=== PATIENT | female | born 1965 | race African-American/Black ===

== ENCOUNTER 2017-08-29 19:37 | Inpatient (IN) | payer OTHER ==
--- NOTE | 2017-08-29 20:06 | PDOC ---
History of Present Illness - General Chief Complaint: Pain, Acute Stated Complaint: STOMACH PAIN Time Seen by Provider: 08/29/17 19:58 - History of Present Illness Initial Comments: 08/29/17 20:27 The patient is a 52 year old female with a history of Crohn's disease, SBO, Pancreatitis who presents for evaluation of abdominal pain. The patient reports sudden onset of poorly described sharp mid abdominal pain earlier this afternoon prompting her presentation to the ED for further evaluation. She endorse some nausea, but denies any vomiting. She states that her abdominal pain feels similar to her primary small bowel obstructions. She otherwise denies fevers, chills, SOB, chest pain, or changes with urination or bowel movements. Past History - Past Medical History Allergies/Adverse Reactions: Allergies Allergy/AdvReac Type Severity Reaction Status Date / Time No Known Drug Allergies Allergy Verified 08/29/17 19:57 Home Medications: Ambulatory Orders Mesalamine [Pentasa] 1,000 mg PO QID 09/29/11 Adalimumab [Humira] 0 mg SQ ASDIR 09/03/14 Acetaminophen [Tylenol .Regular Strength -] 650 mg PO Q4H PRN #0 tablet Anemia: No Asthma: No Cancer: No Cardiac Disorders: No CVA: No COPD: No CHF: No Dementia: No Diabetes: No GI Disorders: Yes (crohn's disease) Disorders: No HTN: No Hypercholesterolemia: No Liver Disease: No Seizures: No Thyroid Disease: No - Surgical History Abdominal Surgery: Yes (ILEOSTOMY 05/2011, with reversal) Appendectomy: No Cardiac Surgery: No Cholecystectomy: No Lung Surgery: No Neurologic Surgery: No Orthopedic Surgery: No - Immunization History Immunization Up to Date: Yes - Suicide/Smoking/Psychosocial Hx Smoking Status: No Smoking History: Never smoked Have you smoked in the past 12 months: No Number of Cigarettes Smoked Daily: 0 Information on smoking cessation initiated: No Hx Alcohol Use: No Drug/Substance Use Hx: No Substance Use Type: None Hx Substance Use Treatment: No Review of Systems - Review of Systems Comments:: 08/29/17 20:29 Constitutional: No fevers, chills, fatigue, malaise HEENT: No Rhinorrhea, nasal congestion, visual changes Cardiovascular: No chest pain, syncope, palpitations, lightheadedness Respiratory: No Cough, SOB, Hemoptysis, Gastrointestinal: Abdominal pain, Nausea, No Vomiting, Constipation, Diarrhea, Melena Genitourinary: No Dysuria, Frequency, Urgency, Hesitancy, Hematuria, Flank pain Musculoskeletal: No Myalgia, arthralgia Skin: No rashes, itching, bruising, pallor Neurologic: No Headache, Dizziness, Numbness, Weakness, or Tingling Psychiatric: No Hallucinations. No SI or HI *Physical Exam - Vital Signs Last Vital Signs Temp Pulse Resp BP Pulse Ox 99.1 F 66 22 134/75 99 08/29/17 19:57 08/29/17 19:57 08/29/17 19:57 08/29/17 19:57 08/29/17 19:57 - Physical Exam Comments: 08/29/17 20:30 General Appearance: Nourished. In Moderate Apparent Distress HEENT: EOMI, JAYLENE. No Pharyngeal Erythema, Tonsillar Exudate, Tonsillar Erythema Neck: No Cervical Lymphadenopathy Respiratory/Chest: Lungs Clear, Normal Breath Sounds. No Crackles, Rales, Rhonchi, Wheezing Cardiovascular: Regular Rhythm, Regular Rate. No Murmur, Gallops, Rubs Gastrointestinal/Abdominal: Normal Bowel Sounds, Soft. Diffuse tenderness to palpation worse around the umbilicus. No Guarding, Rebound, Musculoskeletal: No CVA Tenderness Extremity: Normal Capillary Refill Integumentary: Normal Color, Dry, Warm Neurologic: Fully Oriented, Alert, Normal Mood/Affect, Normal Response, ED Treatment Course - LABORATORY CBC & Chemistry Diagram: 08/29/17 21:17 08/29/17 22:50 Medical Decision Making - Medical Decision Making 08/29/17 20:30 The patient is a 52 year old female with a history of Crohn's disease, SBO, Pancreatitis who presents for evaluation of abdominal pain. Differential includes but is not limited to: SBO, Gastritis, Pancreatitis, Infectious, Metabolic derangement. Given the patient's history and physical exam, we will obtain a cbc, cmp, lacate, lipase, troponin, ekg and CT abdomen pelvis to evaluate further for possible etiologies. We will treat in the meantime with iv fluids, zofran, morphine. We will continue to monitor and reassess while here in the ED. 08/30/17 06:20 CBC, cmp, lipase, lactate, troponin are unremarkable. CT abdomen pelvis demonstrates a SBO as preliminarily read by our information security director radiologist. We will place an NG tube done and have placed a consult for surgery. We discussed the case with the hospitalist team who accepted the patient for admission. *DC/Admit/Observation/Transfer Diagnosis at time of Disposition: Small bowel obstruction - Discharge Dispostion Condition at time of disposition: Stable Decision to Admit order: Yes - Referrals - Patient Instructions - Post Discharge Activity
[2017-08-29] MEDS ORDERED: ONDANSETRON 4 MG/2 ML VIAL IVPUSH ONE (20:14)
[2017-08-29] MEDS ORDERED: SODIUM CHLORIDE 1,000 ML IV STA (20:14)
[2017-08-29] MEDS ORDERED: morphine CARPU-JECT 4 MG/1 ML DISP.SYRIN IVPUSH ONE (20:20)
--- NOTE | 2017-08-29 20:24 | PDOC ---
Attending Attestation - HPI HPI: 08/29/17 21:59 Pt is a 52 yo F with a PMHx of Crohn's disease, SBO, Pancreatitis who presents to the ED with abdominal pain and nausea today. Patient reports burning mid abdominal pain, 7/10 in severity with persistent nausea. Patient reports pain is similar in nature to previous SBO and presents to the ED for further evaluation. Patient refusing abdominal pain secondary to pain. - Physicial Exam PE: 08/29/17 21:59 GENERAL: The patient is in no acute distress. HEAD: Normal with no signs of trauma. EYES: PERRLA, EOMI, sclera anicteric, conjunctiva clear. ENT: Ears normal, nares patent, oropharynx clear without exudates. Moist mucous membranes. NECK: Normal range of motion, supple without lymphadenopathy, JVD, or masses. LUNGS: Breath sounds equal, clear to auscultation bilaterally. No wheezes, and no crackles. HEART:Regular rate and rhythm, normal S1 and S2 without murmur, rub or gallop. ABDOMEN: +severe abdominal tenderness. Normoactive bowel sounds. No guarding, no rebound. EXTREMITIES: Normal range of motion, no edema. No clubbing or cyanosis. No erythema, or tenderness. NEUROLOGICAL: Cranial nerves II through XII grossly intact. Normal speech. No focal neurological deficits. MUSCULOSKELETAL: Back nontender to palpation, no CVA tenderness SKIN: Warm, Dry, normal turgor, no rashes or lesions noted. <Francine Ramos - Last Filed: 08/29/17 21:59> - Resident Resident Name: Richard Travis - ED Attending Attestation I have performed the following: I have examined & evaluated the patient, The case was reviewed & discussed with the resident, I agree w/resident's findings & plan, Exceptions are as noted - Medical Decision Making 08/31/17 00:12 Laboratory Tests 08/29/17 08/29/17 08/29/17 21:17 22:50 22:50 WBC 7.1 D Hgb 13.9 D Hct 41.7 Plt Count 207 BUN 10 Creatinine 0.8 Creatine Kinase 336 H Creatine Kinase Index 0.9 CK-MB (CK-2) 3.21 Troponin I < 0.02 Serum , Qual Negative Urine Blood Urine Nitrite Ur Leukocyte Esterase 08/29/17 23:29 WBC Hgb Hct Plt Count BUN Creatinine Creatine Kinase Creatine Kinase Index CK-MB (CK-2) Troponin I Serum , Qual Urine Blood Negative Urine Nitrite Negative Ur Leukocyte Esterase Negative 08/31/17 00:14 CT demonstrates SBO Will admit NGT Consult Dr Casiano Clinical Impression: SBO, initial presentation <Matilda Kline - Last Filed: 08/31/17 00:14>
[2017-08-29] MEDS ORDERED: morphine SULFATE 4 MG/ML VIAL ONE (21:25)
[2017-08-29] MEDS ORDERED: ONDANSETRON 4 MG/2 ML VIAL ONE (21:25)
[2017-08-29 21:32] LABS: BASO % 0.5 % (0-2.0); EOS % 0.9 % (0-4.5); HEMATOCRIT 41.7 % (32.4-45.2); HEMOGLOBIN 13.9 GM/dL (10.7-15.3); LYMPH % 27.9 % (8-40); MCH 31.2 pg (25.7-33.7); MCHC 33.3 g/dl (32.0-36.0); MEAN CELL VOLUME 93.5 fl (80-96); MEAN PLT VOLUME 8.9 fl (7.5-11.1); MONO % 6.1 % (3.8-10.2); NEUT % 64.6 % (42.8-82.8); PLATELET COUNT 207 K/MM3 (134-434); RBC 4.46 M/mm3 (3.60-5.2); WHITE BLOOD COUNT 7.1 K/mm3 (4.0-10.0)
[2017-08-29 23:29] LABS: ALBUMIN 3.5 g/dl (3.4-5.0); ANION GAP 5 (8-16); BLOOD UREA NITROGEN 10 mg/dL (7-18); CALCIUM 8.8 mg/dL (8.5-10.1); CHLORIDE 104 mmol/L (98-107); CO2 29 mmol/L (21-32); CREATININE 0.8 mg/dL (0.55-1.02); GLUCOSE,RANDOM 99 mg/dL (74-106); LIPASE 148 U/L (73-393); POTASSIUM 4.8 mmol/L (3.5-5.1); SGOT/AST 25 U/L (15-37); SGPT/ALT 35 U/L (12-78); SODIUM 138 mmol/L (136-145)
[2017-08-29 23:33] LABS: ALK PHOS 53 U/L (45-117); BILIRUBIN,TOTAL 0.6 mg/dL (0.2-1.0); TOT PROT 7.7 g/dl (6.4-8.2)
[2017-08-29 23:47] LABS: URINE APPEARANCE CLEAR; URINE BILIRUBIN NEGATIVE (<2.0 mg/dL); URINE COLOR LTYELLOW; URINE GLUCOSE (UA) NEGATIVE (NEGATIVE); URINE KETONE NEGATIVE (NEGATIVE); URINE LEUK ESTERASE NEGATIVE (NEGATIVE); URINE NITRITE NEGATIVE (NEGATIVE); URINE PROTEIN NEGATIVE (NEGATIVE); URINE UROBILINOGEN NEGATIVE mg/dL (0.2-1.0)
[2017-08-30] MEDS ORDERED: SODIUM CHLORIDE 1,000 ML IV STA (05:11)
--- NOTE | 2017-08-30 06:08 | HP ---
CHIEF COMPLAINT: pain abdomen PCP: none HISTORY OF PRESENT ILLNESS: 52 yo F with a PMHx of Crohn's disease, SBO, Pancreatitis who presents to the ED with abdominal pain and nausea today. Patient reports sharp pain, present in center of abdomen , 7/10 in severity with persistent nausea, non radiating. Patient reports pain is similar in nature to previous SBO and presents to the ED for further evaluation. Denies abdominal dstension, reports not passing flatus since yesterday, had last bowel moement yesterday, denies fever and chills, reports making a good amount of urine and its clear. ER course was notable for: (1)cbc, cmp, ct abdomen (2)IV fuid (3)got fentanyl and morphine in er Recent Travel: no PAST MEDICAL HISTORY: crohns Follow dr lindo. PAST SURGICAL HISTORY: laparotomy 2011 for bowel perforation, 2013 for obstruction Social History: Smoking:no Alcohol:no Drugs: no Family History: not relevant Allergies No Known Drug Allergies Allergy (Verified 08/29/17 19:57) HOME MEDICATIONS: Home Medications Medication Instructions Recorded Mesalamine [Pentasa] 1,000 mg PO QID 09/29/11 Adalimumab [Humira] 0 mg SQ ASDIR 09/03/14 Acetaminophen [Tylenol .Regular 650 mg PO Q4H PRN #0 tablet 08/13/15 Strength -] REVIEW OF SYSTEMS CONSTITUTIONAL: Absent: fever, chills, diaphoresis, generalized weakness, malaise, loss of appetite, weight change HEENT: Absent: rhinorrhea, nasal congestion, throat pain, throat swelling, difficulty swallowing, mouth swelling, ear pain, eye pain, visual changes CARDIOVASCULAR: Absent: chest pain, syncope, palpitations, irregular heart rate, lightheadedness , peripheral edema RESPIRATORY: Absent: cough, shortness of breath, dyspnea with exertion, orthopnea, wheezing, stridor, hemoptysis GASTROINTESTINAL: as above GENITOURINARY: Absent: dysuria, frequency, urgency, hesitancy, hematuria, flank pain, genital pain MUSCULOSKELETAL: Absent: myalgia, arthralgia, joint swelling, back pain, neck pain SKIN: Absent: rash, itching, pallor HEMATOLOGIC/IMMUNOLOGIC: Absent: easy bleeding, easy bruising, lymphadenopathy, frequent infections ENDOCRINE: Absent: unexplained weight gain, unexplained weight loss, heat intolerance, cold intolerance NEUROLOGIC: Absent: headache, focal weakness or paresthesias, dizziness, unsteady gait, seizure, mental status changes, bladder or bowel incontinence PSYCHIATRIC: Absent: anxiety, depression, suicidal or homicidal ideation, hallucinations. PHYSICAL EXAMINATION Vital Signs - 24 hr 08/29/17 19:57 Temperature 99.1 F Pulse Rate 66 Respiratory 22 Rate Blood Pressure 134/75 O2 Sat by Pulse 99 Oximetry (%) GENERAL: Awake, alert, and fully oriented, in no acute distress. HEAD: Normal with no signs of trauma. EARS, NOSE, THROAT: Moist mucous membranes. NECK: Normal range of motion, supple without lymphadenopathy, JVD, or masses. LUNGS: Breath sounds equal, clear to auscultation bilaterally. No wheezes, and no crackles. No accessory muscle use. HEART: Regular rate and rhythm, normal S1 and S2 without murmur, rub or gallop. ABDOMEN: Soft, mild tender, not distended, hypoactive bowel sounds, no guarding, midline scar and ileostomy scar present MUSCULOSKELETAL: Normal range of motion at all joints. No bony deformities or tenderness. UPPER EXTREMITIES: 2+ pulses, warm, well-perfused. No cyanosis. No clubbing. No peripheral edema. LOWER EXTREMITIES: 2+ pulses, warm, well-perfused. No calf tenderness. No peripheral edema. SKIN: Warm, dry, 08/29/17 08/29/17 08/29/17 21:17 22:50 22:50 WBC 7.1 D RBC 4.46 Hgb 13.9 D Hct 41.7 MCV 93.5 MCH 31.2 MCHC 33.3 RDW 14.0 Plt Count 207 MPV 8.9 Absolute Neuts (auto) 4.6 Neutrophils % 64.6 Lymphocytes % 27.9 Monocytes % 6.1 Eosinophils % 0.9 Basophils % 0.5 Nucleated RBC % 0 Sodium 138 Potassium 4.8 Chloride 104 Carbon Dioxide 29 Anion Gap 5 L BUN 10 Creatinine 0.8 Creat Clearance w eGFR > 60 Random Glucose 99 Lactic Acid 1.6 Calcium 8.8 Total Bilirubin 0.6 AST 25 ALT 35 Alkaline Phosphatase 53 Creatine Kinase 336 H Creatine Kinase Index 0.9 CK-MB (CK-2) 3.21 Troponin I < 0.02 Total Protein 7.7 Albumin 3.5 Lipase 148 Serum , Qual Urine Color Urine Appearance Urine pH Ur Specific [place] Urine Protein Urine Glucose (UA) Urine Ketones Urine Blood Urine Nitrite Urine Bilirubin Urine Urobilinogen Ur Leukocyte Esterase 08/29/17 08/29/17 22:50 23:29 WBC RBC Hgb Hct MCV MCH MCHC RDW Plt Count MPV Absolute Neuts (auto) Neutrophils % Lymphocytes % Monocytes % Eosinophils % Basophils % Nucleated RBC % Sodium Potassium Chloride Carbon Dioxide Anion Gap BUN Creatinine Creat Clearance w eGFR Random Glucose Lactic Acid Calcium Total Bilirubin AST ALT Alkaline Phosphatase Creatine Kinase Creatine Kinase Index CK-MB (CK-2) Troponin I Total Protein Albumin Lipase Serum , Qual Negative Urine Color Ltyellow Urine Appearance Clear Urine pH 8.0 D Ur Specific [place] 1.017 Urine Protein Negative Urine Glucose (UA) Negative Urine Ketones Negative Urine Blood Negative Urine Nitrite Negative Urine Bilirubin Negative Urine Urobilinogen Negative Ur Leukocyte Esterase Negative ASSESSMENT/PLAN: 52 yo F with a PMHx of Crohn's disease, SBO, Pancreatitis who presents to the ED with abdominal pain and nausea today found to have sbo SBO IV fluid RL 100ml/hr NPO NG tube, patient refused, but she is not vomiting. Bowel rest. monitor vitals monitor intake/ output. PT inr , type and screen keep sr K over 4. surgery consult. monitor electrolytes avoid opeoid fr pain control try IV tylenol and toradol. Crohns ds continue home meds but need to confirm them. follows dr veronica lindo fluid: RL 100ml/hr electrolytes: repeat in am nutrition : npo dvt pro: scd dispo med surg Visit type - Emergency Visit Emergency Visit: Yes Care time: The patient presented to the Emergency Department on the above date and was hospitalized for further evaluation of their emergent condition. - New Patient This patient is new to me today: Yes Date on this admission: 08/30/17 - Critical Care Critical Care patient: No
--- NOTE | 2017-08-30 06:13 | PN ---
Teaching Attending Note Name of Resident: Roderick Pritchett ATTENDING PHYSICIAN STATEMENT I saw and evaluated the patient. I reviewed the resident's note and discussed the case with the resident. I agree with the resident's findings and plan as documented. SUBJECTIVE: 52 yo F with a PMHx of Crohn's disease, SBO, multiple abdominal surgeries including placement of ileostomy and subsequent c/o nausea and sharp abdominal pain, located in the center of the abdomen. No history of recent trauma. Last BM was on 08/29. Patient not passing flatulence since yesterday. Denied any vomiting. CT of abdomen/pelvis c/w SBO. Pt was not able to tolerate NG tube in the ER. OBJECTIVE: Last Vital Signs Temp Pulse Resp BP Pulse Ox 99.1 F 66 22 134/75 99 08/29/17 19:57 08/29/17 19:57 08/29/17 19:57 08/29/17 19:57 08/29/17 19:57 General-nad, aaox3 heent- at, normocephalic, no oral uclers neck -supple cv s1+s2+rrr chest -cta b/l abdomen - multiple keloids post op present, decreased BS, guarding, tenderness present skin -no rashes, only keloids Abnormal Lab Results 08/29/17 22:50 Anion Gap 5 L Creatine Kinase [address] of abdomen/pelvis reviewed, + for SBO, /p right hemicolectomy ASSESSMENT AND PLAN: #52yo woman with acute small bowel obstruction -admit to med/surg -surgery consult -tylenol IV prn for pain management -NPO -attempt NG tube for bowel decompression -correct electrolyte abnormalities -IV fluid hydration -type and screen -PT, PTT #DVT ppx - heparin sc
[2017-08-30] MEDS ORDERED: LACTATED RINGERS SOLUTION 1,000 ML/1,000 ML INFUS.BAG IV SCH (06:15)
[2017-08-30 06:57] LABS: BASO % 0.8 % (0-2.0); EOS % 0.9 % (0-4.5); HEMATOCRIT 39.2 % (32.4-45.2); HEMOGLOBIN 13.2 GM/dL (10.7-15.3); LYMPH % 31.8 % (8-40); MCH 31.2 pg (25.7-33.7); MCHC 33.5 g/dl (32.0-36.0); MEAN CELL VOLUME 93.2 fl (80-96); MEAN PLT VOLUME 7.9 fl (7.5-11.1); MONO % 6.5 % (3.8-10.2); PLATELET COUNT 183 K/MM3 (134-434); RBC 4.21 M/mm3 (3.60-5.2); RDW 14.2 % (11.6-15.6); WHITE BLOOD COUNT 6.8 K/mm3 (4.0-10.0)
[2017-08-30 07:12] LABS: ALBUMIN 3.2 g/dl (3.4-5.0); ANION GAP 6 (8-16); BLOOD UREA NITROGEN 7 mg/dL (7-18); CALCIUM 8.2 mg/dL (8.5-10.1); CHLORIDE 106 mmol/L (98-107); CO2 27 mmol/L (21-32); MAGNESIUM 1.8 mg/dL (1.8-2.4); POTASSIUM 4.1 mmol/L (3.5-5.1); SODIUM 139 mmol/L (136-145)
[2017-08-30 07:15] LABS: ALK PHOS 51 U/L (45-117); BILIRUBIN,TOTAL 0.8 mg/dL (0.2-1.0); CREATININE 0.8 mg/dL (0.55-1.02); GLUCOSE,RANDOM 100 mg/dL (74-106); PHOSPHOROUS 3.9 mg/dL (2.5-4.9); SGOT/AST 21 U/L (15-37); SGPT/ALT 33 U/L (12-78)
[2017-08-30 07:23] LABS: INR 1.09 (0.82-1.09); PROTHROMBIN TIME (PATIENT) 12.3 SEC (9.7-13.0)
--- NOTE | 2017-08-30 08:56 | EKG ---
Test Reason : Blood Pressure : / mmHG Vent. Rate : 062 BPM Atrial Rate : 062 BPM P-R Int : 216 ms QRS Dur : 074 ms QT Int : 382 ms P-R-T Axes : 059 007 012 degrees QTc Int : 387 ms SINUS RHYTHM WITH 1ST DEGREE A-V BLOCK NONSPECIFIC T WAVE ABNORMALITY ABNORMAL ECG WHEN COMPARED WITH ECG OF 18-NOV-2015 00:54, QT HAS SHORTENED Confirmed by KIRILL DELATORRE, TC ([id number]) on 08/30/2017 8:55:57 AM Referred By: Confirmed By:CT ROY MD
--- NOTE | 2017-08-30 09:55 | HOSP ---
Subjective - Review of Symptoms Events since last encounter: Subjective: no fever or chills. Abd pain resolved. NO N/V . no flatus yet. Objective: Vital Signs: Last Vital Signs Temp Pulse Resp BP Pulse Ox 97.9 F 69 17 140/62 100 08/30/17 06:21 08/30/17 07:58 08/30/17 06:21 08/30/17 07:58 08/30/17 07:58 Laboratory Results - last 24 hr 08/29/17 08/29/17 08/29/17 21:17 22:50 22:50 WBC 7.1 D RBC 4.46 Hgb 13.9 D Hct 41.7 MCV 93.5 MCH 31.2 MCHC 33.3 RDW 14.0 Plt Count 207 MPV 8.9 Absolute Neuts (auto) 4.6 Neutrophils % 64.6 Lymphocytes % 27.9 Monocytes % 6.1 Eosinophils % 0.9 Basophils % 0.5 Nucleated RBC % 0 PT with INR INR Sodium 138 Potassium 4.8 Chloride 104 Carbon Dioxide 29 Anion Gap 5 L BUN 10 Creatinine 0.8 Creat Clearance w eGFR > 60 POC Glucometer Random Glucose 99 Lactic Acid 1.6 Calcium 8.8 Phosphorus Magnesium Total Bilirubin 0.6 AST 25 ALT 35 Alkaline Phosphatase 53 Creatine Kinase 336 H Creatine Kinase Index 0.9 CK-MB (CK-2) 3.21 Troponin I < 0.02 Total Protein 7.7 Albumin 3.5 Lipase 148 Serum , Qual Urine Color Urine Appearance Urine pH Ur Specific [place] Urine Protein Urine Glucose (UA) Urine Ketones Urine Blood Urine Nitrite Urine Bilirubin Urine Urobilinogen Ur Leukocyte Esterase Blood Type Antibody Screen 08/29/17 08/29/17 08/30/17 22:50 23:29 06:36 WBC 6.8 RBC 4.21 Hgb 13.2 Hct 39.2 MCV 93.2 MCH 31.2 MCHC 33.5 RDW 14.2 Plt Count 183 MPV 7.9 D Absolute Neuts (auto) 4.1 Neutrophils % 60.0 Lymphocytes % 31.8 Monocytes % 6.5 Eosinophils % 0.9 Basophils % 0.8 Nucleated RBC % 0 PT with INR INR Sodium Potassium Chloride Carbon Dioxide Anion Gap BUN Creatinine Creat Clearance w eGFR POC Glucometer Random Glucose Lactic Acid Calcium Phosphorus Magnesium Total Bilirubin AST ALT Alkaline Phosphatase Creatine Kinase Creatine Kinase Index CK-MB (CK-2) Troponin I Total Protein Albumin Lipase Serum , Qual Negative Urine Color Ltyellow Urine Appearance Clear Urine pH 8.0 D Ur Specific [place] 1.017 Urine Protein Negative Urine Glucose (UA) Negative Urine Ketones Negative Urine Blood Negative Urine Nitrite Negative Urine Bilirubin Negative Urine Urobilinogen Negative Ur Leukocyte Esterase Negative Blood Type Antibody Screen 08/30/17 08/30/17 08/30/17 06:36 06:36 06:36 WBC RBC Hgb Hct MCV MCH MCHC RDW Plt Count MPV Absolute Neuts (auto) Neutrophils % Lymphocytes % Monocytes % Eosinophils % Basophils % Nucleated RBC % PT with INR 12.30 INR 1.09 Sodium 139 Potassium 4.1 Chloride 106 Carbon Dioxide 27 Anion Gap 6 L BUN 7 Creatinine 0.8 Creat Clearance w eGFR > 60 POC Glucometer [phone] Random Glucose 100 Lactic Acid Calcium 8.2 L Phosphorus 3.9 Magnesium 1.8 Total Bilirubin 0.8 D AST 21 ALT 33 Alkaline Phosphatase 51 Creatine Kinase Creatine Kinase Index CK-MB (CK-2) Troponin I Total Protein 7.0 Albumin 3.2 L Lipase Serum , Qual Urine Color Urine Appearance Urine pH Ur Specific [place] Urine Protein Urine Glucose (UA) Urine Ketones Urine Blood Urine Nitrite Urine Bilirubin Urine Urobilinogen Ur Leukocyte Esterase Blood Type Antibody Screen 08/30/17 06:55 WBC RBC Hgb Hct MCV MCH MCHC RDW Plt Count MPV Absolute Neuts (auto) Neutrophils % Lymphocytes % Monocytes % Eosinophils % Basophils % Nucleated RBC % PT with INR INR Sodium Potassium Chloride Carbon Dioxide Anion Gap BUN Creatinine Creat Clearance w eGFR POC Glucometer Random Glucose Lactic Acid Calcium Phosphorus Magnesium Total Bilirubin AST ALT Alkaline Phosphatase Creatine Kinase Creatine Kinase Index CK-MB (CK-2) Troponin I Total Protein Albumin Lipase Serum , Qual Urine Color Urine Appearance Urine pH Ur Specific [place] Urine Protein Urine Glucose (UA) Urine Ketones Urine Blood Urine Nitrite Urine Bilirubin Urine Urobilinogen Ur Leukocyte Esterase Blood Type O POSITIVE Antibody Screen Negative Physical Exam: NAD , MMM, no facial droop. EOMI , round equal pupils . CV: RRR, no MRG lungs: CTAB ext: annel jenny Abd: soft, NT, ND, hypoactive BS . Imaging: CT of abd reviewed. rpeort pending . KUB reviewed Assessment/Plan: 52 y/o lady with h/o Crohn's , abdominal surgeries who presented with abd pain and was found to have SBO . 1- SBO: ? adhesions VS Crohn's flare with inflammation . - change IVF to D5 1/2 NS. - NPO - kub showes contrast in colon. - follwo eletctolytes Sx to evaluate - will consult GI as she might have Crohn;s flare - check ESR and CRP 2- SCDs . heparin sq Physical Examination Vital Signs: Vital Signs Temperature 97.9 F 08/30/17 06:21 Pulse Rate 69 08/30/17 07:58 Respiratory Rate 17 08/30/17 06:21 Blood Pressure 140/62 08/30/17 07:58 O2 Sat by Pulse Oximetry (%) 100 08/30/17 07:58 Labs: CBC, BMP 08/30/17 06:36 08/30/17 06:36
[2017-08-30 10:39] VITALS: BMI 36.0
[2017-08-30] MEDS: DEXTROSE 5%-0.45% SALINE 1,000 ML IV SCH (10:58)
[2017-08-30] MEDS: HEPARIN NA (PORCINE) 5,000 UNITS/ML 1ML VIAL SQ SCH ×2 (13:15→21:14)
[2017-08-30] MEDS ORDERED: ACETAMINOPHEN 1000 MG/100 ML VIAL (NON FORMULARY) IVPB PRN ×2 (20:24→20:26)
[2017-08-30] MEDS ORDERED: MORPHINE SULFATE 2 MG/ML VIAL IVPUSH PRN (20:25)
--- NOTE | 2017-08-30 20:58 | CON.GI ---
Consult Consult Specialty:: GI for Dr. Castillo Reason for Consultation:: SBO/PSBO - History of Present Illness History of Present Illness: For Dr. Castillo who will assume care tomorrow. Chart, including prior admissions, reviewed. Crohns Dx in 2003. Currently on Pentasa 2 tabs qid and Nusrat q2w. S/p right hemicollectomy with ileocolonic anastomosis in 2011. Adhesions lysis in 2013, colonoscopy w/o signs of activity in 2014 (Dr. Lena Appiah), conservatively manages SBO in 2015. Has a routine follow up appointment with Dr. Eason scheduled in 2 weeks. The patient felt worsening, over the course of the day, generalized abdominal pain. Hawi nauseous and has 1 episode of non-projectile vomiting. No fever, chills, diarrhea, melena, hematochezia, or hematemesis. No changes i stool caliper, no mucous.Lost some weight and attributes it to starting a new job. No jaundice, joint, or skin symptoms. CT a/p w/ showed SBO, follow up AXR showed PSBO. The pt could not tolerate NGT. At the time of this encounter, she is ambulating, asymptomatic. The abdomen is soft, non-tender, and not distended. She reports significant improvement in her symptoms since the admission. - History Source History Provided By: Patient, Medical Record - Past Medical History Gastrointestinal: Yes: Crohn's Disease (s/p partial colectomy and small bowel resection) ...LMP: 07/24/15 Infectious Disease: Yes: Other (PPD + with negative CXR) - Past Surgical History Past Surgical History: Yes: Ileosotomy - Alcohol/Substance Use Hx Alcohol Use: No History of Substance Use: reports: None - Smoking History Smoking history: Never smoked Have you smoked in the past 12 months: No Aproximately how many cigarettes per day: 0 - Social History Usual Living Arrangement: With Spouse ADL: Independent History of Recent Travel: Yes Home Medications - Allergies Allergies/Adverse Reactions: Allergies Allergy/AdvReac Type Severity Reaction Status Date / Time No Known Drug Allergies Allergy Verified 08/29/17 19:57 - Home Medications Home Medications: Ambulatory Orders Mesalamine [Pentasa] 1,000 mg PO QID 09/29/11 Adalimumab [Humira] 0 mg SQ ASDIR 06/21/15 Acetaminophen [Tylenol .Regular Strength -] 650 mg PO Q4H PRN #0 tablet Family Disease History - Family Disease History Family Disease History: Heart Disease: Father () Review of Systems Findings/Remarks: as per HPI, H&P, ED Physical Exam-GI Vital Signs: Vital Signs Temperature 98.1 F 08/30/17 18:00 Pulse Rate 72 08/30/17 18:00 Respiratory Rate 20 08/30/17 18:00 Blood Pressure 135/76 08/30/17 18:00 O2 Sat by Pulse Oximetry (%) 100 08/30/17 10:47 Constitutional: Yes: Well Nourished, No Distress, Calm Eyes: Yes: Conjunctiva Clear HENT: Yes: Atraumatic Neck: Yes: Supple Cardiovascular: Yes: Regular Rate and Rhythm Gastrointestinal Inspection: No: Ascites, Distention ...Auscultate: Yes: Normoactive Bowel Sounds ...Palpate: Yes: Soft. No: Firm/Rigid, Tenderness Neurological: Yes: Alert, Oriented Labs: CBC, BMP 08/30/17 06:36 08/30/17 06:36 INR, PTT INR 1.09 (0.82-1.09) 08/30/17 06:36 Laboratory Last Values WBC 6.8 K/mm3 (4.0-10.0) 08/30/17 06:36 RBC 4.21 M/mm3 (3.60-5.2) 08/30/17 06:36 Hgb 13.2 GM/dL (10.7-15.3) 08/30/17 06:36 Hct 39.2 % (32.4-45.2) 08/30/17 06:36 MCV 93.2 fl (80-96) 08/30/17 06:36 MCH 31.2 pg (25.7-33.7) 08/30/17 06:36 MCHC 33.5 g/dl (32.0-36.0) 08/30/17 06:36 RDW 14.2 % (11.6-15.6) 08/30/17 06:36 Plt Count 183 K/MM3 (134-434) 08/30/17 06:36 MPV 7.9 fl (7.5-11.1) D 08/30/17 06:36 Absolute Neuts (auto) 4.1 # 08/30/17 06:36 Neutrophils % 60.0 % (42.8-82.8) 08/30/17 06:36 Lymphocytes % 31.8 % (8-40) 08/30/17 06:36 Monocytes % 6.5 % (3.8-10.2) 08/30/17 06:36 Eosinophils % 0.9 % (0-4.5) 08/30/17 06:36 Basophils % 0.8 % (0-2.0) 08/30/17 06:36 Nucleated RBC % 0 % (0-0) 08/30/17 06:36 ESR 9 mm/hr (0-30) 08/30/17 09:55 PT with INR 12.30 SEC (9.7-13.0) 08/30/17 06:36 INR 1.09 (0.82-1.09) 08/30/17 06:36 Sodium 139 mmol/L (136-145) 08/30/17 06:36 Potassium 4.1 mmol/L (3.5-5.1) 08/30/17 06:36 Chloride 106 mmol/L (98-107) 08/30/17 06:36 Carbon Dioxide 27 mmol/L (21-32) 08/30/17 06:36 Anion Gap 6 (8-16) L 08/30/17 06:36 BUN 7 mg/dL (7-18) 08/30/17 06:36 Creatinine 0.8 mg/dL (0.55-1.02) 08/30/17 06:36 Creat Clearance w eGFR > 60 (>60) 08/30/17 06:36 POC Glucometer 100 UNITS (80-120) 08/30/17 15:37 Random Glucose 100 mg/dL (74-106) 08/30/17 06:36 Lactic Acid 1.6 mmol/L (0.0-2.0) 08/29/17 22:50 Calcium 8.2 mg/dL (8.5-10.1) L 08/30/17 06:36 Phosphorus 3.9 mg/dL (2.5-4.9) 08/30/17 06:36 Magnesium 1.8 mg/dL (1.8-2.4) 08/30/17 06:36 Total Bilirubin 0.8 mg/dL (0.2-1.0) D 08/30/17 06:36 AST 21 U/L (15-37) 08/30/17 06:36 ALT 33 U/L (12-78) 08/30/17 06:36 Alkaline Phosphatase 51 U/L (45-117) 08/30/17 06:36 Creatine Kinase 336 IU/L (26-192) H 08/29/17 22:50 Creatine Kinase Index 0.9 % (0.0-5.0) 08/29/17 22:50 CK-MB (CK-2) 3.21 ng/mL (0.5-3.6) 08/29/17 22:50 Troponin I < 0.02 ng/ml (0.00-0.05) 08/29/17 22:50 C-Reactive Protein 0.3 MG/DL (0.00-0.3) 08/30/17 06:36 Total Protein 7.0 g/dl (6.4-8.2) 08/30/17 06:36 Albumin 3.2 g/dl (3.4-5.0) L 08/30/17 06:36 Lipase 148 U/L (73-393) 08/29/17 22:50 Serum , Qual Negative 08/29/17 22:50 Urine Color Ltyellow 08/29/17 23:29 Urine Appearance Clear 08/29/17 23:29 Urine pH 8.0 (5.0-8.0) D 08/29/17 23:29 Ur Specific [place] 1.017 (1.001-1.035) 08/29/17 23:29 Urine Protein Negative (NEGATIVE) 08/29/17 23:29 Urine Glucose (UA) Negative (NEGATIVE) 08/29/17 23:29 Urine Ketones Negative (NEGATIVE) 08/29/17 23:29 Urine Blood Negative (NEGATIVE) 08/29/17 23:29 Urine Nitrite Negative (NEGATIVE) 08/29/17 23:29 Urine Bilirubin Negative (<2.0 mg/dL) 08/29/17 23:29 Urine Urobilinogen Negative mg/dL (0.2-1.0) 08/29/17 23:29 Ur Leukocyte Esterase Negative (NEGATIVE) 08/29/17 23:29 Blood Type O POSITIVE 08/30/17 06:55 Antibody Screen Negative 08/30/17 06:55 Imaging - Results X-ray: Report Reviewed Cat Scan: Report Reviewed Problem List - Problems (1) Crohn disease Code(s): K50.90 - CROHN'S DISEASE, UNSPECIFIED, WITHOUT COMPLICATIONS Qualifiers: Gastrointestinal tract location: small intestine Digestive disease complication type: with intestinal obstruction Qualified Code(s): K50.012 - Crohn's disease of small intestine with intestinal obstruction Assessment/Plan A 52F with Chron's eleitis/ileocolitis x 14 y. History of multiple admissions for bowel obstruction. Admitted with the same, however at the time of this encounter the patient appears to be doing quite well and exhibiting no overt sings of P/SBO, or Crohn's flair up. Based on the current clinical presentation , suspect resolution of P/SBO. Recommend repeating AXR now. Continue NPO status , Hold off on NGT for now. Discussed with the patient.
[2017-08-30] MEDS ORDERED: PT OWN MED DRAWER 7, Y5N ONE (21:12)
[2017-08-31] MEDS: HEPARIN NA (PORCINE) 5,000 UNITS/ML 1ML VIAL SQ SCH ×2 (06:28→13:56)
[2017-08-31 07:42] LABS: ANION GAP 6 (8-16); BLOOD UREA NITROGEN 5 mg/dL (7-18); CALCIUM 8.4 mg/dL (8.5-10.1); CHLORIDE 106 mmol/L (98-107); CO2 29 mmol/L (21-32); CREATININE 0.8 mg/dL (0.55-1.02); GLUCOSE,RANDOM 93 mg/dL (74-106); MAGNESIUM 1.9 mg/dL (1.8-2.4); PHOSPHOROUS 3.2 mg/dL (2.5-4.9); POTASSIUM 3.9 mmol/L (3.5-5.1); SODIUM 141 mmol/L (136-145)
[2017-08-31] MEDS: DEXTROSE 5%-0.45% SALINE 1,000 ML IV SCH (13:35)
[2017-08-31 15:11] VITALS: BP 120/75; PULSE 61; TEMP 98.9
--- NOTE | 2017-08-31 15:16 | PN ---
Physical Exam: SUBJECTIVE: Patient seen and examined at bed side this morning. No complaints. Passed flatus last night. Denies abdominal pain, nausea, vomiting, chest pain, sob, cough, palpitation. No BM in the morning. Bladder habit normal. Sleep normal. Moved Bowel this afternoon. Tolerated Clear liquid diet. OBJECTIVE: Vital Signs Period Temp Pulse Resp BP Sys/Hall Pulse Ox Last 24 Hr 98.1 F-99 F 61-72 18-20 120-145/72-80 100-100 GENERAL: Middle aged female, awake, alert, and fully oriented, in no acute distress. HEAD: Normal with no signs of trauma. EYES: EOM intact, no pallor or icterus. ENT: Ears normal, moist mucous membranes. NECK: Supple. LUNGS: Breath sounds equal, clear to auscultation bilaterally, no wheezes, no crackles, no accessory muscle use. HEART: Regular rate and rhythm, S1, S2 without murmur. ABDOMEN: Soft,tenderness around the umbilical area, nondistended, normoactive bowel sounds, no guarding, no rebound, no hepatosplenomegaly, no masses. EXTREMITIES: 2+ pulses, warm, well-perfused, no edema. NEUROLOGICAL: No facial droop, Cranial nerves II through XII grossly intact. Normal speech, gait not observed. PSYCH: Normal mood, normal affect. SKIN: Warm, dry, normal turgor, no rashes or lesions noted Laboratory Results - last 24 hr 08/30/17 08/31/17 08/31/17 15:37 00:43 06:33 Sodium Potassium Chloride Carbon Dioxide Anion Gap BUN Creatinine Creat Clearance w eGFR POC Glucometer 100 104 97 Random Glucose Calcium Phosphorus Magnesium 08/31/17 08/31/17 06:45 11:30 Sodium 141 Potassium 3.9 Chloride 106 Carbon Dioxide 29 Anion Gap 6 L BUN 5 L Creatinine 0.8 Creat Clearance w eGFR > 60 POC Glucometer 100 Random Glucose 93 Calcium 8.4 L Phosphorus 3.2 Magnesium 1.9 Active Medications Generic Name Dose Route Start Last Admin Trade Name Freq PRN Reason Stop Dose Admin Acetaminophen 1,000 mg 08/30/17 20:26 Ofirmev Injection - IVPB Q6H PRN PAIN LEVEL 1-5 Heparin Sodium (Porcine) 5,000 unit 08/30/17 14:00 08/31/17 13:56 Heparin - SQ 5,000 unit TID MANUEL Administration Dextrose/Sodium Chloride 1,000 mls @ 100 mls/hr 08/30/17 10:00 08/31/17 13:35 D5-1/2ns - IV 100 mls/hr ASDIR MANUEL Administration Morphine Sulfate 2 mg 08/30/17 20:25 08/30/17 21:24 Morphine Sulfate IVPUSH 2 mg Q4H PRN Administration PAIN LEVEL 6-10 ASSESSMENT/PLAN: Patient is a 52 year old female with a PMHx of Crohn's disease, SBO, Pancreatitis who presented to the ED with abdominal pain and nausea was found to have SBO # Small bowel Obstruction- resolved c/o abdominal pain, nausea. Refused NGT placement on admission CT abdomen/pelvis showed SBO IV fluid RL 100ml/hr NPO NG tube, patient refused, but she is not vomiting. Bowel rest. monitor vitals monitor intake/ output. PT inr , type and screen keep sr K over 4. surgery consult. monitor electrolytes avoid opeoid fr pain control try IV tylenol and toradol. Crohns ds continue home meds but need to confirm them. follows dr veronica lindo fluid: RL 100ml/hr electrolytes: repeat in am nutrition : npo dvt pro: scd dispo med surg
--- NOTE | 2017-08-31 15:24 | PN ---
GI Progress Note Subjective: Dr. Morton for Dr. Castillo No acute events No abdominal pain / vomiting Last BM 12pm today and tolerating PO - Objective Vital Signs: Vital Signs Temperature 98.9 F 08/31/17 15:06 Pulse Rate 61 08/31/17 15:06 Respiratory Rate 18 08/31/17 15:06 Blood Pressure 120/75 08/31/17 15:06 O2 Sat by Pulse Oximetry (%) 100 08/31/17 09:00 Constitutional: Calm Eyes: No: Sclera Icterus Cardiovascular: Yes: Regular Rate and Rhythm Respiratory: Yes: CTA Bilaterally Gastrointestinal Inspection: Yes: Scars (+ mid abdominal surgical scar with keloid formation). No: Distention ...Auscultate: Yes: Normoactive Bowel Sounds ...Palpate: No: Hepatomegaly, Splenomegaly, Tenderness ...Percussion: No: Tympanitic Edema: No (No LE edema) Neurological: Yes: Alert Labs: CBC, BMP 08/30/17 06:36 08/31/17 06:45 INR, PTT INR 1.09 (0.82-1.09) 08/30/17 06:36 Hepatic Panel Total Bilirubin 0.8 mg/dL (0.2-1.0) D 08/30/17 06:36 AST 21 U/L (15-37) 08/30/17 06:36 ALT 33 U/L (12-78) 08/30/17 06:36 Alkaline Phosphatase 51 U/L (45-117) 08/30/17 06:36 Albumin 3.2 g/dl (3.4-5.0) L 08/30/17 06:36 Assessment/Plan Suspected resolved SBO. ? transient occulsion of a strictured portion of small bowel that has resolved: Advise: Low fiber diet Follow-up with Dr. Appiah in office this week Advised that if pain, vomiting, abdominal distention occurs, she should be reevaluated in an energency room setting
--- NOTE | 2017-08-31 15:28 | DS ---
Physical Exam: SUBJECTIVE: AM: Patient seen and examined at bed side this morning. No complaints. Passed flatus last night. Denies abdominal pain, nausea, vomiting, chest pain, sob, cough, palpitation. No BM in the morning. Bladder habit normal. Sleep normal. PM: Moved Bowel this afternoon. Tolerated Clear liquid diet. OBJECTIVE: Vital Signs Period Temp Pulse Resp BP Sys/Hall Pulse Ox Last 24 Hr 98.1 F-99 F 61-72 18-20 120-145/72-80 100-100 PHYSICAL EXAM GENERAL: Middle aged female, awake, alert, and fully oriented, in no acute distress. HEAD: Normal with no signs of trauma. EYES: EOM intact, no pallor or icterus. ENT: Ears normal, moist mucous membranes. NECK: Supple. LUNGS: Breath sounds equal, clear to auscultation bilaterally, no wheezes, no crackles, no accessory muscle use. HEART: Regular rate and rhythm, S1, S2 without murmur. ABDOMEN: Soft, minimal tenderness around the umbilical area, nondistended, normoactive bowel sounds, no guarding, no rebound, no hepatosplenomegaly, no masses. EXTREMITIES: 2+ pulses, warm, well-perfused, no edema. NEUROLOGICAL: No facial droop, Cranial nerves II through XII grossly intact. Normal speech, gait not observed. PSYCH: Normal mood, normal affect. SKIN: Warm, dry, normal turgor, no rashes or lesions noted LABS Laboratory Results - last 24 hr 08/30/17 08/31/17 08/31/17 15:37 00:43 06:33 Sodium Potassium Chloride Carbon Dioxide Anion Gap BUN Creatinine Creat Clearance w eGFR POC Glucometer 100 104 97 Random Glucose Calcium Phosphorus Magnesium 08/31/17 08/31/17 06:45 11:30 Sodium 141 Potassium 3.9 Chloride 106 Carbon Dioxide 29 Anion Gap 6 L BUN 5 L Creatinine 0.8 Creat Clearance w eGFR > 60 POC Glucometer 100 Random Glucose 93 Calcium 8.4 L Phosphorus 3.[address] abdomen/Pelvis with contrast: Small bowel obstruction Abdominal x-ray 08/31/2017: Distended loop of small bowel measuring up to 4 cm in diameter seen in the left mid abdomen HOSPITAL COURSE: Date of Admission:08/30/17 Date of Discharge: 08/31/17 Patient is a 52 year old F with a PMHx of Crohn's disease, SBO, Pancreatitis, bowel perforation s/p right hemicolectomy in 2011 who presented to the ED with abdominal pain and nausea. Patient reported sharp pain, present in center of abdomen , 7/10 in severity with persistent nausea, non radiating. Patient reported pain is similar in nature to previous SBO and presented to the ED for further evaluation. CT abdomen/Pelvis showed Small bowel obstruction. F/up abdominal xray this morning showed Distended loop of small bowel measuring up to 4 cm in diameter seen in the left mid abdomen. During hospitalization, patient didn't have nausea, vomiting. She refused NG tube placement. Was managed conservatively, NPO, IV fluids. This afternoon, she passed flatus, moved her bowels, she is asymptomatic and stable to be discharged. Patient verbally confirmed her home medication. Takes Mesalamine 2tabs QID and Adalimumab Inj. Patient has been recommended to f/up with Dr. Castillo. Illness, Investigation and Plan of care explained to the patient. She verbalized understanding. Case discussed with Dr. Dao. Minutes to complete discharge: 45 Discharge Summary Reason For Visit: SMALL BOWEL OBSTRUCTIONS Current Active Problems Small bowel obstruction (Acute) Condition: Improved - Instructions Diet, Activity, Other Instructions: You were admitted for the evaluation of Small bowel obstruction which has resolved. Please follow up with Dr. Castillo within this week. Continue your home medication. Please f/up with your PCP within this week. If you develop any new symptoms please visit the ED immediately. Referrals: Yosvany Castillo MD [Staff Physician] - Chon Appiah MD [Staff Physician] - Disposition: HOME - Home Medications Comprehensive Discharge Medication List: Ambulatory Orders Mesalamine [Pentasa] 1,000 mg PO QID 09/29/11 Adalimumab [Humira] 0 mg SQ ASDIR 09/03/14 Acetaminophen [Tylenol .Regular Strength -] 650 mg PO Q4H PRN #0 tablet This patient is new to me today: Yes Date on this admission: 08/31/17 Emergency Visit: Yes ED Registration Date: 08/30/17 Care time: The patient presented to the Emergency Department on the above date and was hospitalized for further evaluation of their emergent condition. Critical Care patient: No - Discharge Referral Referred to [facility] Med P.C.: No
--- NOTE | 2017-08-31 16:12 | PN ---
Teaching Attending Note Name of Resident: Reina Malik ATTENDING PHYSICIAN STATEMENT I saw and evaluated the patient. I reviewed the resident's note and discussed the case with the resident. I agree with the resident's findings and plan as documented. SUBJECTIVE: OBJECTIVE: Vital Signs Period Temp Pulse Resp BP Sys/Hall Pulse Ox Last 24 Hr 98.1 F-99 F 61-72 18-20 120-145/72-80 100-100 Laboratory Results - last 24 hr 08/31/17 08/31/17 08/31/17 00:43 06:33 06:45 Sodium 141 Potassium 3.9 Chloride 106 Carbon Dioxide 29 Anion Gap 6 L BUN 5 L Creatinine 0.8 Creat Clearance w eGFR > 60 POC Glucometer 104 97 Random Glucose 93 Calcium 8.4 L Phosphorus 3.2 Magnesium 1.9 08/31/17 11:30 Sodium Potassium Chloride Carbon Dioxide Anion Gap BUN Creatinine Creat Clearance w eGFR POC Glucometer 100 Random Glucose Calcium Phosphorus Magnesium Current Medications Generic Name Dose Route Start Last Admin Trade Name Freq PRN Reason Stop Dose Admin Acetaminophen 1,000 mg 08/30/17 20:26 Ofirmev Injection - IVPB Q6H PRN PAIN LEVEL 1-5 Heparin Sodium (Porcine) 5,000 unit 08/30/17 14:00 08/31/17 13:56 Heparin - SQ 5,000 unit TID MANUEL Administration Dextrose/Sodium Chloride 1,000 mls @ 100 mls/hr 08/30/17 10:00 08/31/17 13:35 D5-1/2ns - IV 100 mls/hr ASDIR MANUEL Administration Morphine Sulfate 2 mg 08/30/17 20:25 08/30/17 21:24 Morphine Sulfate IVPUSH 2 mg Q4H PRN Administration PAIN LEVEL 6-10 ASSESSMENT AND PLAN:
== END 2017-08-31 16:49 | disposition home or self-care (01) | DRG 390 ==
LOC: JER 19:37 → JERBED 08-30 05:43 → J6S 08-30 09:06
PROVIDERS: ADMIT Internal Medicine; ATTEND Internal Medicine
DX: K56.609 Unspecified intestinal obstruction, unspecified as to partial versus complete obstruction (principal)
CPT/HCPCS: 36415; 74019-TC-FY; 74177-TC; 80048; 80053; 81003; 82550; 82553; 82962; 83605; 83690; 83735; 84100; 84484; 84703; 85025; 85610; 85651; 86140; 86850; 86900; 86901; 93005; 93010; 99285-25; J1644; J7030

== ENCOUNTER 2017-09-04 06:36 | Inpatient (IN) | payer OTHER ==
--- NOTE | 2017-09-04 07:03 | PDOC ---
History of Present Illness - General Stated Complaint: ABDOMINAL PAIN Time Seen by Provider: 09/04/17 07:01 - History of Present Illness Initial Comments: 09/04/17 07:03 Ms. Licona is a 52 yo female w/ pmh of Crohn's disease, frequent SBO, and Pancreatitis who presents for evaluation of abdominal pain since last night. She reports it had initially gotten better however started again at around 4 or 5 this morning. She reports this as similar to her previous Crohn's presentations. Ms. Licona reports that morphine is typically unhelpful for her pain and that dilaudid has previously been helpful in the past. She last had a bowel movement yesterday. She has not passed gas since last night. She feels some nausea however had had no vomiting. The patient denies chest pain, shortness of breath, headache and dizziness. Denies fever, chills, vomit, diarrhea and constipation. Denies dysuria, frequency, urgency and hematuria. Allergies: NKDA Past History - Past Medical History Allergies/Adverse Reactions: Allergies Allergy/AdvReac Type Severity Reaction Status Date / Time No Known Drug Allergies Allergy Verified 09/04/17 07:02 Home Medications: Ambulatory Orders Mesalamine [Pentasa] 1,000 mg PO QID 09/29/11 Adalimumab [Humira] 0 mg SQ ASDIR 09/03/14 Acetaminophen [Tylenol .Regular Strength -] 650 mg PO Q4H PRN #0 tablet Anemia: No Asthma: No Cancer: No Cardiac Disorders: No CVA: No COPD: No CHF: No Dementia: No Diabetes: No GI Disorders: Yes (crohn's disease) Disorders: No HTN: No Hypercholesterolemia: No Liver Disease: No Seizures: No Thyroid Disease: No - Surgical History Abdominal Surgery: Yes (ILEOSTOMY 05/2011, with reversal) Appendectomy: No Cardiac Surgery: No Cholecystectomy: No Lung Surgery: No Neurologic Surgery: No Orthopedic Surgery: No - Immunization History Immunization Up to Date: Yes - Suicide/Smoking/Psychosocial Hx Smoking Status: No Smoking History: Never smoked Have you smoked in the past 12 months: No Number of Cigarettes Smoked Daily: 0 Hx Alcohol Use: No Drug/Substance Use Hx: No Substance Use Type: None Hx Substance Use Treatment: No Review of Systems - Review of Systems Comments:: 09/04/17 07:03 GENERAL/CONSTITUTIONAL: No fever or chills. No weakness. HEAD, EYES, EARS, NOSE AND THROAT: No change in vision. No ear pain or discharge. No sore throat. CARDIOVASCULAR: No chest pain or shortness of breath RESPIRATORY: No cough, wheezing, or hemoptysis. GASTROINTESTINAL: +Nausea with generalized abdominal pain, no vomiting, diarrhea or constipation. GENITOURINARY: No dysuria, frequency, or change in urination. MUSCULOSKELETAL: No joint or muscle swelling or pain. No neck or back pain. SKIN: No rash NEUROLOGIC: No headache, vertigo, loss of consciousness, or change in strength/ sensation. ENDOCRINE: No increased thirst. No abnormal weight change HEMATOLOGIC/LYMPHATIC: No anemia, easy bleeding, or history of blood clots. ALLERGIC/IMMUNOLOGIC: No hives or skin allergy. *Physical Exam - Physical Exam Comments: 09/04/17 07:03 GENERAL: Awake, alert, and fully oriented, in no acute distress HEAD: No signs of trauma, normocephalic, atraumatic EYES: PERRLA, EOMI, sclera anicteric, conjunctiva clear ENT: Auricles normal inspection, hearing grossly normal, nares patent, oropharynx clear without exudates. Moist mucosa NECK: Normal ROM, supple, no lymphadenopathy, JVD, or masses LUNGS: No distress, speaks full sentences, clear to auscultation bilaterally HEART: Regular rate and rhythm, normal S1 and S2, no murmurs, rubs or gallops, peripheral pulses normal and equal bilaterally. ABDOMEN: +Diffusely tender in all quadrants. Soft, normoactive bowel sounds. No guarding, no rebound. No masses EXTREMITIES: Normal inspection, Normal range of motion, no edema. No clubbing or cyanosis. NEUROLOGICAL: Cranial nerves II through XII grossly intact. Normal speech, normal gait, no focal sensorimotor deficits SKIN: Warm, Dry, normal turgor, no rashes or lesions noted. ED Treatment Course - LABORATORY CBC & Chemistry Diagram: 09/04/17 08:16 09/04/17 08:16 Medical Decision Making - Medical Decision Making 09/04/17 07:25 Ms. Licona is a 52 yo female w/ pmh as described who presents for evaluation of abdominal pain. Patient labs sent including CBC/CMP/lipase/ua/ucx/lactate for evaluation. Pepcid/fluids/zofran/tylenol/maalox given for symptomatic relief. 09/04/17 16:18 Patient found to have SBO on CT evaluation. Patient refused NG tube. Prior surgeon (Anthony Macdonald) consulted. Will admit patient for further evaluation. 09/04/17 16:28 Dr. Macdonald referred to Dr. Miles covering. Discussed with Dr. Miles's partner who reported they would like patient to go to [facility]. [facility] physician paged. 09/04/17 16:[address] Gallardo [facility]. Discussed with Paulina who reported Dr. Moore is on 09/04/17 17:[address] Moore who will evaluate. Discussed NG tube with patient again who consented. 09/04/17 17:29 NG tube placed. Patient admitted for further evaluation. *DC/Admit/Observation/Transfer Diagnosis at time of Disposition: Abdominal pain Qualifiers: Abdominal location: unspecified location Qualified Code(s): R10.9 - Unspecified abdominal pain - Discharge Dispostion Decision to Admit order: Yes - Referrals - Patient Instructions - Post Discharge Activity
[2017-09-04] MEDS ORDERED: FAMOTIDINE 20 MG/50 ML IVPB 20 MG/50 ML MG IVPB ONE (07:21)
[2017-09-04] MEDS ORDERED: SODIUM CHLORIDE 1,000 ML IV STA (07:21)
[2017-09-04] MEDS ORDERED: ONDANSETRON 4 MG/2 ML VIAL IVPUSH ONE (07:22)
[2017-09-04] MEDS ORDERED: ACETAMINOPHEN 1000 MG/100 ML VIAL (NON FORMULARY) IVPB ONE (07:23)
[2017-09-04] MEDS ORDERED: MAG HYDROX/AL HYDROX/SIMETH 30 ML UNIT-DOSE CUP PO ONE (07:28)
[2017-09-04 08:35] LABS: BASO % 0.5 % (0-2.0); EOS % 0.6 % (0-4.5); HEMATOCRIT 40.6 % (32.4-45.2); HEMOGLOBIN 13.6 GM/dL (10.7-15.3); MCH 31.3 pg (25.7-33.7); MCHC 33.4 g/dl (32.0-36.0); MEAN CELL VOLUME 93.7 fl (80-96); MEAN PLT VOLUME 8.1 fl (7.5-11.1); MONO % 6.8 % (3.8-10.2); NEUT % 69.1 % (42.8-82.8); PLATELET COUNT 219 K/MM3 (134-434); RBC 4.33 M/mm3 (3.60-5.2); RDW 13.8 % (11.6-15.6); WHITE BLOOD COUNT 5.4 K/mm3 (4.0-10.0)
[2017-09-04 08:58] LABS: ALBUMIN 3.2 g/dl (3.4-5.0); ALK PHOS 49 U/L (45-117); ANION GAP 8 (8-16); BILIRUBIN,TOTAL 0.4 mg/dL (0.2-1.0); BLOOD UREA NITROGEN 9 mg/dL (7-18); CALCIUM 8.7 mg/dL (8.5-10.1); CHLORIDE 106 mmol/L (98-107); CO2 26 mmol/L (21-32); CREATININE 0.9 mg/dL (0.55-1.02); GLUCOSE,RANDOM 109 mg/dL (74-106); SGPT/ALT 31 U/L (12-78); SODIUM 140 mmol/L (136-145); TOT PROT 7.2 g/dl (6.4-8.2)
[2017-09-04 08:59] LABS: LIPASE 248 U/L (73-393)
[2017-09-04 09:01] LABS: POTASSIUM 4.4 mmol/L (3.5-5.1); SGOT/AST 24 U/L (15-37)
--- NOTE | 2017-09-04 09:04 | PDOC ---
History of Present Illness - General Chief Complaint: Pain, Acute Stated Complaint: ABDOMINAL PAIN Time Seen by Provider: 09/04/17 07:01 - History of Present Illness Initial Comments: 09/04/17 08:57 Past History - Past Medical History Allergies/Adverse Reactions: Allergies Allergy/AdvReac Type Severity Reaction Status Date / Time No Known Drug Allergies Allergy Verified 09/04/17 07:02 Home Medications: Ambulatory Orders Mesalamine [Pentasa] 1,000 mg PO QID 09/29/11 Adalimumab [Humira] 0 mg SQ ASDIR 09/03/14 Acetaminophen [Tylenol .Regular Strength -] 650 mg PO Q4H PRN #0 tablet Anemia: No Asthma: No Cancer: No Cardiac Disorders: No CVA: No COPD: No CHF: No Dementia: No Diabetes: No GI Disorders: Yes (crohn's disease) Disorders: No HTN: No Hypercholesterolemia: No Liver Disease: No Seizures: No Thyroid Disease: No - Surgical History Abdominal Surgery: Yes (ILEOSTOMY 05/2011, with reversal) Appendectomy: No Cardiac Surgery: No Cholecystectomy: No Lung Surgery: No Neurologic Surgery: No Orthopedic Surgery: No - Immunization History Immunization Up to Date: Yes - Suicide/Smoking/Psychosocial Hx Smoking Status: No Smoking History: Never smoked Have you smoked in the past 12 months: No Number of Cigarettes Smoked Daily: 0 Information on smoking cessation initiated: No Hx Alcohol Use: No Drug/Substance Use Hx: No Substance Use Type: None Hx Substance Use Treatment: No *Physical Exam - Vital Signs Last Vital Signs Temp Pulse Resp BP Pulse Ox 98.3 F 72 20 124/64 100 09/04/17 06:42 09/04/17 06:42 09/04/17 06:42 09/04/17 06:42 09/04/17 06:42 ED Treatment Course - LABORATORY CBC & Chemistry Diagram: 09/04/17 08:16 09/04/17 08:16 - ADDITIONAL ORDERS Additional order review: 09/04/17 08:16 RBC 4.33 MCV 93.7 MCHC 33.4 RDW 13.8 MPV 8.1 Neutrophils % 69.1 Lymphocytes % 23.0 D Monocytes % 6.8 Eosinophils % 0.6 Basophils % 0.5 - Medications Given in the ED: ED Medications Discontinued Medications Generic Name Dose Route Start Last Admin Trade Name Freq PRN Reason Stop Dose Admin Acetaminophen 1,000 mg 06/22/18 07:23 09/04/17 08:20 Ofirmev Injection - IVPB 09/04/17 07:24 1,000 mg ONCE ONE Administration Al Hydroxide/Mg Hydroxide 30 ml 09/04/17 07:28 09/04/17 08:12 Mylanta Oral Suspension - PO 09/04/17 07:29 30 ml ONCE ONE Administration Famotidine/Sodium Chloride 20 mg in 50 mls @ 100 mls/hr 09/04/17 07:21 08:11 Pepcid 20 Mg Premixed Ivpb - IVPB 09/04/17 07:50 100 mls/hr ONCE ONE Administration Sodium Chloride 1,000 mls @ 1,000 mls/hr 09/04/17 07:21 09/04/17 08:11 Normal Saline - IV 09/04/17 08:20 1,000 mls/hr ASDIR STA Administration Ondansetron HCl 4 mg 09/04/17 07:22 09/04/17 08:12 Zofran Injection IVPUSH 09/04/17 07:23 4 mg ONCE ONE Administration *DC/Admit/Observation/Transfer - Referrals Referrals: Chago Dawson MD [Primary Care Provider] - - Patient Instructions - Post Discharge Activity
--- NOTE | 2017-09-04 09:07 | PDOC ---
Attending Attestation - Resident Resident Name: Jamie Rudd - ED Attending Attestation I have performed the following: I have examined & evaluated the patient, The case was reviewed & discussed with the resident, I agree w/resident's findings & plan, Exceptions are as noted - HPI HPI: 09/04/17 09:05 The patient is a 52 year old female with a significant past medical of frequent SBO, Crohn's disease, and Pancreatitis who presents to the ED for evaluation of abdominal pain since last night. The patient states her pain at 5am was unbearable which prompted her to visit the ED. She reports associated symptoms of nausea, with no vomiting. Last BM was yesterday - normal non-bloody, but pt states she has not been passing flatus. The patient denies chest pain, shortness of breath, headache, weakness, and dizziness. Denies F/C, vomitng, and any urinary issues. Allergies: NKDA Social History: No reported alcohol, cigarette, or drug use. PCP: Dr. Chago Dawson - Physicial Exam PE: 09/04/17 09:05 GENERAL: Sleeping, no acute distress. HEAD: No signs of trauma EYES: PERRLA, EOMI, sclera anicteric, conjunctiva clear NECK: Normal ROM, supple. LUNGS: Breath sounds equal, clear to auscultation bilaterally. No wheezes, and no crackles HEART: Regular rate and rhythm, normal S1 and S2, no murmurs, rubs or gallops ABDOMEN: (+)diffuse abdominal discomfort, worse in epigastric area. No rebound or guarding, soft, non distended EXTREMITIES: Normal range of motion, no edema. No clubbing or cyanosis. No cords , erythema, or tenderness NEUROLOGICAL: Normal speech, cranial nerves intact, 5/5 strength in all 4 extremities, normal sensation to light touch in all 4 extremities SKIN: Warm, Dry, normal turgor, no rashes or lesions noted. - Medical Decision Making 09/04/17 09:06 62yo F hx crohn's disease, recent admission for SBO that was non-operatively managed presents to the ED with diffuse abd pain. Vitals wnl. Exam with diffuse ttp. DDx includes but not limited to SBO vs crohns flare vs pancreatitis. Plan -labs -upt -AXR -ua -pain control -reassess 09/04/17 18:25 Pt found ot have SBO with transition points and possible closed loop bowel obstruction. Dr. Moore c/s. NGT placed. Pt admitted for further mgmt.
[2017-09-04] MEDS ORDERED: morphine CARPU-JECT 2 MG/1 ML DISP.SYRIN IVPUSH ONE ×2 (10:11→16:01)
[2017-09-04 11:56] LABS: URINE APPEARANCE SLCLOUDY; URINE BILIRUBIN NEGATIVE (<2.0 mg/dL); URINE COLOR YELLOW; URINE GLUCOSE (UA) NEGATIVE (NEGATIVE); URINE KETONE NEGATIVE (NEGATIVE); URINE LEUK ESTERASE NEGATIVE (NEGATIVE); URINE NITRITE NEGATIVE (NEGATIVE); URINE PROTEIN NEGATIVE (NEGATIVE); URINE UROBILINOGEN NEGATIVE mg/dL (0.2-1.0)
[2017-09-04 12:52] LABS: EPI CELLS RARE /HPF (FEW); URINE BACTERIA RARE /hpf (NONE SEEN); URINE MUCUS FEW
[2017-09-04] MEDS ORDERED: LIDOCAINE VISCOUS 2% ORAL/TOP 20 ML UNIT-DOSE CUP MM ONE (17:14)
--- NOTE | 2017-09-04 17:19 | CONSULT ---
Consult Consult Specialty:: general surgery Reason for Consultation:: SBO - History of Present Illness Chief Complaint: abdominal pain History of Present Illness: 52 yo female with PMH frequent SBO, Crohn's disease, s/p hemicolectomy, and pancreatitis who presents to the ED for evaluation of abdominal pain since last night. The patient states her pain at 5am was unbearable which prompted her to visit the ED. She reports associated symptoms of nausea, with no vomiting. She has had several similar episode that were managed non-operatively since he last surgery in 2013. Last meal was yesterday at 8pm, Last BM was yesterday - normal non-bloody, but pt states she has not been passing flatus. we were asked to assess. denies fever and chills. last endoscopy was >1 year ago. 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) - Past Surgical History Past Surgical History: Yes: Ileosotomy - Alcohol/Substance Use Hx Alcohol Use: No History of Substance Use: reports: None - Smoking History Smoking history: Never smoked Have you smoked in the past 12 months: No Aproximately how many cigarettes per day: 0 - Social History Usual Living Arrangement: With Spouse ADL: Independent History of Recent Travel: Yes Home Medications - Allergies Allergies/Adverse Reactions: Allergies Allergy/AdvReac Type Severity Reaction Status Date / Time No Known Drug Allergies Allergy Verified 09/04/17 07:02 - Home Medications Home Medications: Ambulatory Orders Mesalamine [Pentasa] 1,000 mg PO QID 09/29/11 Adalimumab [Humira] 0 mg SQ ASDIR 09/03/14 Acetaminophen [Tylenol .Regular Strength -] 650 mg PO Q4H PRN #0 tablet Family Disease History - Family Disease History Family Disease History: Heart Disease: Father () Review of Systems - Review of Systems Constitutional: denies: Chills, Fever Eyes: denies: Blind Spots, Recent Change in Vision HENT: denies: Difficult Swallowing, Throat Pain Neck: denies: Decreased ROM, Tenderness Cardiovascular: denies: Chest Pain, Palpitations Respiratory: denies: Cough, SOB Gastrointestinal: reports: Abdominal Pain, Bloating, Nausea. denies: Vomiting Genitourinary: denies: Discharge, Flank Pain, Frequency Breasts: reports: No Symptoms Reported. denies: Pain Integumentary: denies: Eczema, Lesions, Rash Neurological: denies: Seizure, Syncope Endocrine: denies: Unexplained Weight Gain, Unexplained Weight Loss Hematology/Lymphatic: denies: Easily Bruised, Excessive Bleeding Psychiatric: denies: Anxiety, Depression Physical Exam Vital Signs: Vital Signs Temperature 98.3 F 09/04/17 06:42 Pulse Rate 72 09/04/17 06:42 Respiratory Rate 20 09/04/17 06:42 Blood Pressure 124/64 09/04/17 06:42 O2 Sat by Pulse Oximetry (%) 100 09/04/17 06:42 Constitutional: Yes: Well Nourished, No Distress, Calm Eyes: Yes: Conjunctiva Clear, EOM Intact HENT: Yes: Atraumatic, Normocephalic Neck: Yes: Supple, Trachea Midline Cardiovascular: Yes: Regular Rate and Rhythm, S1, S2 Respiratory: Yes: Regular, CTA Bilaterally Gastrointestinal: Yes: Normal Bowel Sounds, Soft, Abdomen, Obese, Distention, Hernia (large reducible ventral midline hernia >15cm). No: Tenderness, Tenderness, Epigastrium, Tenderness, Rebound Renal/: No: CVA Tenderness - Left, CVA Tenderness - Right Musculoskeletal: No: Muscle Pain, Muscle Weakness Extremities: No: Cool, Cyanosis Edema: No Peripheral Pulses WNL: Yes Integumentary: No: Jaundice, Rash Neurological: Yes: Alert, Oriented Psychiatric: Yes: Alert, Oriented Labs: CBC, BMP 09/04/17 08:16 09/04/17 08:16 Imaging - Results Cat Scan: Report Reviewed, Image Reviewed Problem List - Problems (1) Small bowel obstruction Assessment/Plan: 52 yo female PMH SBO and Chron's with previous bowel ressections NPO and IVF hydration NGT decompression IV antibotics GI evaluation serial Abdominal Xray to follow contrast repeat labs GI and DVT prophylaxsis will follow Thank you for the opportunity to participate in the care of this patient. Code(s): K56.69 - OTHER INTESTINAL OBSTRUCTION * DO NOT USE * (2) Obesity Code(s): E66.9 - OBESITY, UNSPECIFIED Qualifiers: Obesity type: due to excess calories Serious obesity comorbidity presence: without serious comorbidity Body mass index: BMI 40.0-44.9 (3) Abdominal pain Code(s): R10.9 - UNSPECIFIED ABDOMINAL PAIN Qualifiers: Abdominal location: unspecified location Qualified Code(s): R10.9 - Unspecified abdominal pain (4) Nausea Code(s): R11.0 - NAUSEA (5) Crohns disease of small intestine Code(s): K50.00 - CROHN'S DISEASE OF SMALL INTESTINE WITHOUT COMPLICATIONS Qualifiers: Digestive disease complication type: with intestinal obstruction Qualified Code(s): K50.012 - Crohn's disease of small intestine with intestinal obstruction
[2017-09-04] MEDS ORDERED: MORPHINE SULFATE 2 MG/ML VIAL ONE (17:39)
--- NOTE | 2017-09-04 17:57 | HP ---
CHIEF COMPLAINT: Abd pain HISTORY OF PRESENT ILLNESS: 52 y/o F w/PMH of Crohn's disease, SBO (s/p surgery 2013), Pancreatitis, bowel perforation s/p right hemicolectomy in 2011 presents to the ER with c/o epigastric/periumbilical abd pain since yesterday night. Pain at its worst was 10/10 and has been constant (although not at 10/10), and with no radiation. Last BM was yesterday during the day and last time she passed gas was also approximately at the same time but is unsure of the exact time. She drank dionte tea last night and took 2 tylenol with some relief. Pain worsened again at 4-5 am this morning and she drank dionte tea and took 2 tylenol again but it did not improving prompting her to come to the ER. She vomited once in the ER. Vomitus was non-bloody, non-bilious. She had a similar episode of pain last week and was admitted but discharged 1 day later due to improvement with conservative measures. She denies CP, SOB, dizziness, recent travel, cough, fevers, chills, blood in stool, dark stool. Pt is currently on period (UA w/+RBC ). Currently feel better s/p NGT placement. Pt has hx of 2 abdominal surgeries ( 2011 R hemicolectomy, 2013 SBO surgery), no c-sections. Sees Dr. Appiah for GI. ER course was notable for: (1) morphine, mylanta, NS, famotidine, zofran (2) abd xr, abd/pelvis CT (3) Recent Travel:denies PAST MEDICAL HISTORY: Crohn's, SBO, pancreatitis, bowel perforation 2013 PAST SURGICAL HISTORY: SBO (s/p surgery 2013), bowel perforation s/p right hemicolectomy in 2011 Social History: Smoking:denies Alcohol:denies Drugs: denies 2 children, vaginal . Family History: n-c Allergies No Known Drug Allergies Allergy (Verified 09/04/17 07:02) HOME MEDICATIONS: Home Medications Medication Instructions Recorded Mesalamine [Pentasa] 1,000 mg PO QID 09/29/11 Adalimumab [Humira] 0 mg SQ ASDIR 09/03/14 Acetaminophen [Tylenol .Regular 650 mg PO Q4H PRN #0 tablet 08/13/15 Strength -] REVIEW OF SYSTEMS CONSTITUTIONAL: Absent: fever, chills CARDIOVASCULAR: Absent: chest pain, lightheadedness, peripheral edema RESPIRATORY: Absent: cough, shortness of breath GASTROINTESTINAL: +abd pain, vomiting Absent: melena, hematochezia, diarrhea GENITOURINARY: Absent: dysuria, frequency, hematuria NEUROLOGIC: Absent: headache, dizziness PHYSICAL EXAMINATION Vital Signs - 24 hr 09/04/17 06:42 Temperature 98.3 F Pulse Rate 72 Respiratory 20 Rate Blood Pressure 124/64 O2 Sat by Pulse 100 Oximetry (%) GENERAL: Awake, alert, and fully oriented, in no acute distress. HEAD: Normal with no signs of trauma. EYES: extraocular movements intact, sclera anicteric, conjunctiva clear. No lid lag. EARS, NOSE, THROAT: Ears normal, nares patent, oropharynx clear without exudates. NG tube in place, draining clear fluid. NECK: Normal range of motion, supple LUNGS: Breath sounds equal, clear to auscultation bilaterally. HEART: Regular rate and rhythm, normal S1 and S2 ABDOMEN: Soft, nontender, hyperactive bowel sounds, no guarding, no rebound, no masses. Surgical scar in periumbilical region and RLQ. LOWER EXTREMITIES: 2+ pulses, warm, well-perfused. No peripheral edema. NEUROLOGICAL: Cranial nerves II-XII grossly intact. Normal speech. Gait not observed. PSYCHIATRIC: Cooperative. Good eye contact. Appropriate mood and affect. SKIN: Warm, dry, surgical scars as mentioned in abd exam. Laboratory Results - last 24 hr 09/04/17 09/04/17 09/04/17 08:16 08:16 08:16 WBC 5.4 RBC 4.33 Hgb 13.6 Hct 40.6 MCV 93.7 MCH 31.3 MCHC 33.4 RDW 13.8 Plt Count 219 MPV 8.1 Absolute Neuts (auto) 3.8 Neutrophils % 69.1 Lymphocytes % 23.0 D Monocytes % 6.8 Eosinophils % 0.6 Basophils % 0.5 Nucleated RBC % 0 Sodium 140 Potassium 4.4 Chloride 106 Carbon Dioxide 26 Anion Gap 8 BUN 9 Creatinine 0.9 Creat Clearance w eGFR > 60 Random Glucose 109 H Lactic Acid 1.8 Calcium 8.7 Total Bilirubin 0.4 D AST 24 ALT 31 Alkaline Phosphatase 49 Total Protein 7.2 Albumin 3.2 L Lipase 248 Serum , Qual Urine Color Urine Appearance Urine pH Ur Specific [place] Urine Protein Urine Glucose (UA) Urine Ketones Urine Blood Urine Nitrite Urine Bilirubin Urine Urobilinogen Ur Leukocyte Esterase Urine WBC (Auto) Urine RBC (Auto) Ur Epithelial Cells Urine Bacteria Urine Mucus 09/04/17 09/04/17 08:56 11:50 WBC RBC Hgb Hct MCV MCH MCHC RDW Plt Count MPV Absolute Neuts (auto) Neutrophils % Lymphocytes % Monocytes % Eosinophils % Basophils % Nucleated RBC % Sodium Potassium Chloride Carbon Dioxide Anion Gap BUN Creatinine Creat Clearance w eGFR Random Glucose Lactic Acid Calcium Total Bilirubin AST ALT Alkaline Phosphatase Total Protein Albumin Lipase Serum , Qual Negative Urine Color Yellow Urine Appearance Slcloudy Urine pH 5.0 D Ur Specific [place] 1.027 Urine Protein Negative Urine Glucose (UA) Negative Urine Ketones Negative Urine Blood 3+ H Urine Nitrite Negative Urine Bilirubin Negative Urine Urobilinogen Negative Ur Leukocyte Esterase Negative Urine WBC (Auto) 17 Urine RBC (Auto) 432 Ur Epithelial Cells Rare Urine Bacteria Rare Urine Mucus Few Imaging: Abd xr: Impression: Scattered air-fluid levels. Right flank sutures. No free air. If symptoms persist, further imaging with CT may be of help. Abd/Pelvis CT: Impression: Small bowel obstruction, at the level of anastomotic sutures in the lower mid abdomen and possibly also in a different area with fecalized small bowel loops. I cannot rule out a closed loop obstruction and surgical consultation is advised. Active Medications Acetaminophen (Ofirmev Injection -) 1,000 mg IVPB Q6H PRN PRN Reason: PAIN LEVEL 6-10 Sodium Chloride (Normal Saline -) 1,000 mls @ 125 mls/hr IV ASDIR MANUEL Ondansetron HCl (Zofran Injection) 4 mg IVPUSH Q6H PRN PRN Reason: NAUSEA ASSESSMENT/PLAN: 52 y/o F w/PMH of Crohn's disease, SBO (s/p surgery 2013), Pancreatitis, bowel perforation s/p right hemicolectomy in 2011 presents to the ER with c/o epigastric/periumbilical abd pain since yesterday night. Admitted for SBO. -Abdominal pain secondary to SBO -NPO -NS @ 125 ml/hr -NGT in place w/clear fluid drainage and providing pt with relief -Surgery consult - Dr. Moore -Zofran 4 mg IV q6h PRN for nausea -IV tylenol PRN for pain 6-10 -Hx of Crohn's Dz -c/w mesalamine and humira when able to tolerate PO -Hematuria on UA -pt currently on period, denies urinary symptoms -DVT ppx -SCDs, EAM when possible -FEN -NS @ 125 ml/hr -Monitor electrolytes -NPO -Dispo: Admit to m/s Visit type - Emergency Visit Emergency Visit: Yes ED Registration Date: 09/04/17 Care time: The patient presented to the Emergency Department on the above date and was hospitalized for further evaluation of their emergent condition. - New Patient This patient is new to me today: Yes Date on this admission: 09/04/17 - Critical Care Critical Care patient: No Hospitalist Screening - Colonoscopy Questionnaire Colonoscopy Questionnaire: Colonoscopy Questionnaire - Patient: 50 - 75 years old and never had a screening colonoscopy: Unknown History of colon or rectal polyps, or CA: Unknown History of IBD, Crohn's disease or UC: Unknown History of abdominal radiation therapy as a child: Unknown - Relative: 1 with colon or rectal CA, or polyps at age 60 or younger: Unknown Colon or rectal CA diagnosed at age 45 or younger: Unknown Multiple relatives with colon or rectal CA: Unknown - Outcome: Screening Result: Negative Screen
[2017-09-04] MEDS ORDERED: ONDANSETRON 4 MG/2 ML VIAL IVPUSH PRN (18:22)
[2017-09-04] MEDS ORDERED: ACETAMINOPHEN 1000 MG/100 ML VIAL (NON FORMULARY) IVPB PRN (18:22)
[2017-09-04] MEDS: SODIUM CHLORIDE 1,000 ML IV SCH (19:10)
--- NOTE | 2017-09-04 20:36 | PN ---
Teaching Attending Note Name of Resident: Kaylen Willingham ATTENDING PHYSICIAN STATEMENT I saw and evaluated the patient. I reviewed the resident's note and discussed the case with the resident. I agree with the resident's findings and plan as documented. SUBJECTIVE: pATIENT IS C/O HAVING AN ABDOMINAL PAIN , ng TUBE IS PLACED COMFORTABLE POST ng TUBE OBJECTIVE: Vital Signs Temperature 98.3 F 09/04/17 06:42 Pulse Rate 72 09/04/17 06:42 Respiratory Rate 20 09/04/17 06:42 Blood Pressure 124/64 09/04/17 06:42 O2 Sat by Pulse Oximetry (%) 100 09/04/17 06:42 CBCD WBC 5.4 K/mm3 (4.0-10.0) 09/04/17 08:16 RBC 4.33 M/mm3 (3.60-5.2) 09/04/17 08:16 Hgb 13.6 GM/dL (10.7-15.3) 09/04/17 08:16 Hct 40.6 % (32.4-45.2) 09/04/17 08:16 MCV 93.7 fl (80-96) 09/04/17 08:16 MCHC 33.4 g/dl (32.0-36.0) 09/04/17 08:16 RDW 13.8 % (11.6-15.6) 09/04/17 08:16 Plt Count 219 K/MM3 (134-434) 09/04/17 08:16 MPV 8.1 fl (7.5-11.1) 09/04/17 08:16 CMP Sodium 140 mmol/L (136-145) 09/04/17 08:16 Potassium 4.4 mmol/L (3.5-5.1) 09/04/17 08:16 Chloride 106 mmol/L (98-107) 09/04/17 08:16 Carbon Dioxide 26 mmol/L (21-32) 09/04/17 08:16 Anion Gap 8 (8-16) 09/04/17 08:16 BUN 9 mg/dL (7-18) 09/04/17 08:16 Creatinine 0.9 mg/dL (0.55-1.02) 09/04/17 08:16 Creat Clearance w eGFR > 60 (>60) 09/04/17 08:16 Random Glucose 109 mg/dL (74-106) H 09/04/17 08:16 Calcium 8.7 mg/dL (8.5-10.1) 09/04/17 08:16 Total Bilirubin 0.4 mg/dL (0.2-1.0) D 09/04/17 08:16 AST 24 U/L (15-37) 09/04/17 08:16 ALT 31 U/L (12-78) 09/04/17 08:16 Alkaline Phosphatase 49 U/L (45-117) 09/04/17 08:16 Total Protein 7.2 g/dl (6.4-8.2) 09/04/17 08:16 Albumin 3.2 g/dl (3.4-5.0) L 09/04/17 08:16 Current Medications Generic Name Dose Route Start Last Admin Trade Name Freq PRN Reason Stop Dose Admin Acetaminophen 1,000 mg 09/04/17 18:22 Ofirmev Injection - IVPB Q6H PRN PAIN LEVEL 6-10 Sodium Chloride 1,000 mls @ 125 mls/hr 09/04/17 18:30 09/04/17 19:10 Normal Saline - IV 125 mls/hr ASDIR MANUEL Administration Ondansetron HCl 4 mg 09/04/17 18:22 Zofran Injection IVPUSH Q6H PRN NAUSEA Home Medications Medication Instructions Recorded Mesalamine [Pentasa] 1,000 mg PO QID 09/29/11 Adalimumab [Humira] 0 mg SQ ASDIR 09/03/14 Acetaminophen [Tylenol .Regular 650 mg PO Q4H PRN #0 tablet 08/13/15 Strength -] pe: PER RESIDENT'S NOTE abdomen: distended ,with tenderness on palpation, positive for NG tube ASSESSMENT AND PLAN: Patient is a 52 y/o Female with PMHx of Crohn's disease, presented with SBO (s/ p surgery 2013), Pancreatitis, bowel perforation s/p right hemicolectomy in 2011 presents to the ER with c/o epigastric/periumbilical abd pain since yesterday night. Admitted for SBO. #Abdominal pain secondary to SBO, ng TUBE IN Place , RELIEVED HER PAIN, sURGEY SEEN THE PATIENT #Hx of Crohn's Dz c/w mesalamine and humira when able to tolerate PO #Hematuria on UA DUE TO HER MENSTRUAL CYCLE DVT ppx: SCDs -Dispo: Admit to m/s
[2017-09-05 04:50] VITALS: BMI 35.3
--- NOTE | 2017-09-05 05:32 | PN ---
Progress Note, Physician Chief Complaint: SBO absominal pain History of Present Illness: 52 yo female with PMH frequent SBO, Crohn's disease, s/p hemicolectomy, and pancreatitis who presents to the ED for evaluation of abdominal pain since last night. Now passing flatus, no BM and abdominal pain is improved. overnight low grade temp. No other complaints. - Current Medication List Current Medications: Active Medications Acetaminophen (Ofirmev Injection -) 1,000 mg IVPB Q6H PRN PRN Reason: PAIN LEVEL 6-10 Sodium Chloride (Normal Saline -) 1,000 mls @ 125 mls/hr IV ASDIR MANUEL Last Admin: 09/04/17 19:10 Dose: 125 mls/hr Ondansetron HCl (Zofran Injection) 4 mg IVPUSH Q6H PRN PRN Reason: NAUSEA - Objective Vital Signs: Vital Signs Temperature 99.1 F 09/05/17 04:15 Pulse Rate 62 09/05/17 04:15 Respiratory Rate 18 09/05/17 04:15 Blood Pressure 131/76 09/05/17 04:15 O2 Sat by Pulse Oximetry (%) 100 09/04/17 06:42 Vital Signs Period Temp Pulse Resp BP Sys/Hall Pulse Ox Last 24 Hr 98.3 F-99.1 F 62-72 18-20 124-131/64-76 100 Intake & Output 09/04/17 09/04/17 09/05/17 15:59 23:59 07:59 Weight 206 lb Other: Voiding Method Toilet Height 5 ft 4 in Body Mass Index (BMI) 35.3 Weight Measurement Method Built in [facility] Constitutional: Yes: No Distress, Calm, Obese Eyes: Yes: Conjunctiva Clear, EOM Intact HENT: Yes: Atraumatic, Normocephalic, Other (NGT in place, 200ml of GI drainge) Neck: Yes: Supple, Trachea Midline Cardiovascular: Yes: Regular Rate and Rhythm, S1, S2 Respiratory: Yes: Regular, CTA Bilaterally Gastrointestinal: Yes: Normal Bowel Sounds, Soft. No: Tenderness, Tenderness, Epigastrium, Tenderness, Rebound Genitourinary: No: CVA Tenderness - Left, CVA Tenderness - Right Extremities: No: Cool, Cyanosis Edema: No Peripheral Pulses WNL: Yes Peripheral Pulses: Left Doralis Pedis: 2+, Right Dorsalis Pedis: 2+ Integumentary: No: Jaundice, Rash Neurological: Yes: Alert, Oriented Psychiatric: Yes: Alert, Oriented Labs: CBC, BMP 09/04/17 08:16 09/04/17 08:16 - ....Imaging X-ray: Pending Problem List - Problems (1) Small bowel obstruction Assessment/Plan: 52 yo female PMH SBO and Chron's with previous bowel resections, will likely resolve with non-operative management. No flatus no BM, less abdominal pain NPO and IVF hydration NGT decompression IV antibotics GI evaluation serial Abdominal Xray to follow contrast repeat labs GI and DVT prophylaxsis will follow Code(s): K56.69 - OTHER INTESTINAL OBSTRUCTION * DO NOT USE * (2) Obesity Code(s): E66.9 - OBESITY, UNSPECIFIED Qualifiers: Obesity type: due to excess calories Serious obesity comorbidity presence: without serious comorbidity Body mass index: BMI 40.0-44.9 (3) Abdominal pain Code(s): R10.9 - UNSPECIFIED ABDOMINAL PAIN Qualifiers: Abdominal location: unspecified location Qualified Code(s): R10.9 - Unspecified abdominal pain (4) Nausea Code(s): R11.0 - NAUSEA (5) Crohns disease of small intestine Code(s): K50.00 - CROHN'S DISEASE OF SMALL INTESTINE WITHOUT COMPLICATIONS Qualifiers: Digestive disease complication type: with intestinal obstruction Qualified Code(s): K50.012 - Crohn's disease of small intestine with intestinal obstruction
[2017-09-05 08:19] LABS: BASO % 0.4 % (0-2.0); EOS % 2.6 % (0-4.5); HEMATOCRIT 36.6 % (32.4-45.2); HEMOGLOBIN 12.3 GM/dL (10.7-15.3); LYMPH % 38.2 % (8-40); MCH 31.7 pg (25.7-33.7); MCHC 33.8 g/dl (32.0-36.0); MEAN CELL VOLUME 93.9 fl (80-96); MEAN PLT VOLUME 8.1 fl (7.5-11.1); NEUT % 51.8 % (42.8-82.8); PLATELET COUNT 195 K/MM3 (134-434); RBC 3.89 M/mm3 (3.60-5.2); WHITE BLOOD COUNT 5.2 K/mm3 (4.0-10.0)
[2017-09-05 09:13] LABS: ALBUMIN 2.7 g/dl (3.4-5.0); ANION GAP 7 (8-16); BLOOD UREA NITROGEN 6 mg/dL (7-18); CALCIUM 7.9 mg/dL (8.5-10.1); CHLORIDE 108 mmol/L (98-107); CO2 28 mmol/L (21-32); POTASSIUM 3.7 mmol/L (3.5-5.1); SODIUM 143 mmol/L (136-145)
[2017-09-05 09:19] LABS: ALK PHOS 46 U/L (45-117); BILIRUBIN,TOTAL 0.6 mg/dL (0.2-1.0); CREATININE 0.8 mg/dL (0.55-1.02); GLUCOSE,RANDOM 87 mg/dL (74-106); SGOT/AST 15 U/L (15-37); SGPT/ALT 26 U/L (12-78)
--- NOTE | 2017-09-05 10:15 | PN ---
Physical Exam: SUBJECTIVE: Patient seen and examined Patient feels better with no acute distress. OBJECTIVE: Vital Signs Temperature 98.8 F 09/05/17 06:00 Pulse Rate 67 09/05/17 06:00 Respiratory Rate 18 09/05/17 06:00 Blood Pressure 136/83 09/05/17 06:00 O2 Sat by Pulse Oximetry (%) 100 09/04/17 06:42 GENERAL: The patient is awake, alert, and fully oriented, in no acute distress. HEAD: Normal with no signs of trauma. EYES: PERRL, extraocular movements intact, sclera anicteric, conjunctiva clear. ENT: Ears normal, oropharynx clear without exudates, moist mucous membranes. NG tube in place NECK: Trachea midline, full range of motion, supple. LUNGS: Breath sounds equal, clear to auscultation bilaterally, no wheezes, no crackles, no accessory muscle use. HEART: Regular rate and rhythm, S1, S2 without murmur, rub or gallop. ABDOMEN: Soft, distended , normoactive bowel sounds, no guarding, no rebound, no hepatosplenomegaly, no masses. EXTREMITIES: 2+ pulses, warm, well-perfused, no edema. NEUROLOGICAL: Cranial nerves II through XII grossly intact. Normal speech, gait not observed. PSYCH: Normal mood, normal affect. SKIN: Warm, dry, normal turgor, no rashes or lesions noted CBCD WBC 5.2 K/mm3 (4.0-10.0) 09/05/17 06:30 RBC 3.89 M/mm3 (3.60-5.2) 09/05/17 06:30 Hgb 12.3 GM/dL (10.7-15.3) 09/05/17 06:30 Hct 36.6 % (32.4-45.2) 09/05/17 06:30 MCV 93.9 fl (80-96) 09/05/17 06:30 MCHC 33.8 g/dl (32.0-36.0) 09/05/17 06:30 RDW 14.0 % (11.6-15.6) 09/05/17 06:30 Plt Count 195 K/MM3 (134-434) 09/05/17 06:30 MPV 8.1 fl (7.5-11.1) 09/05/17 06:30 CMP Sodium 143 mmol/L (136-145) 09/05/17 06:30 Potassium 3.7 mmol/L (3.5-5.1) 09/05/17 06:30 Chloride 108 mmol/L (98-107) H 09/05/17 06:30 Carbon Dioxide 28 mmol/L (21-32) 09/05/17 06:30 Anion Gap 7 (8-16) L 09/05/17 06:30 BUN 6 mg/dL (7-18) L 09/05/17 06:30 Creatinine 0.8 mg/dL (0.55-1.02) 09/05/17 06:30 Creat Clearance w eGFR > 60 (>60) 09/05/17 06:30 Random Glucose 87 mg/dL (74-106) 09/05/17 06:30 Calcium 7.9 mg/dL (8.5-10.1) L 09/05/17 06:30 Total Bilirubin 0.6 mg/dL (0.2-1.0) 09/05/17 06:30 AST 15 U/L (15-37) 09/05/17 06:30 ALT 26 U/L (12-78) 09/05/17 06:30 Alkaline Phosphatase 46 U/L (45-117) 09/05/17 06:30 Total Protein 6.0 g/dl (6.4-8.2) L 09/05/17 06:30 Albumin 2.7 g/dl (3.4-5.0) L 09/05/17 06:30 Current Medications Generic Name Dose Route Start Last Admin Trade Name Kaz PRN Reason Stop Dose Admin Acetaminophen 1,000 mg 09/04/17 18:22 Ofirmev Injection - IVPB Q6H PRN PAIN LEVEL 6-10 Sodium Chloride 1,000 mls @ 125 mls/hr 09/04/17 18:30 09/04/17 19:10 Normal Saline - IV 125 mls/hr ASDIR AMNUEL Administration Ondansetron HCl 4 mg 09/04/17 18:22 09/05/17 09:26 Zofran Injection IVPUSH 4 mg Q6H PRN Administration NAUSEA Home Medications Medication Instructions Recorded Mesalamine [Pentasa] 1,000 mg PO QID 09/29/11 Adalimumab [Humira] 0 mg SQ ASDIR 09/03/14 Acetaminophen [Tylenol .Regular 650 mg PO Q4H PRN #0 tablet 08/13/15 Strength -] ASSESSMENT AND PLAN: Patient is a 52 y/o Female with PMHx of Crohn's disease, presented with SBO (s/ p surgery 2013), Pancreatitis, bowel perforation s/p right hemicolectomy in 2011 presents to the ER with c/o epigastric/periumbilical abd pain since yesterday night. Admitted for SBO. #Abdominal pain secondary to SBO, continue NG TUBE , on the case .no further pain as per patient #Hx of Crohn's Dz c/w mesalamine and humira when able to tolerate PO DVT ppx: SCDs Visit type - Emergency Visit Emergency Visit: Yes ED Registration Date: 09/04/17 Care time: The patient presented to the Emergency Department on the above date and was hospitalized for further evaluation of their emergent condition. - New Patient This patient is new to me today: No - Critical Care Critical Care patient: No - Discharge Referral Referred to [facility] Med P.C.: No
[2017-09-05] MEDS: SODIUM CHLORIDE 1,000 ML IV SCH ×2 (10:46→17:40)
[2017-09-06] MEDS: SODIUM CHLORIDE 1,000 ML IV SCH (03:40)
--- NOTE | 2017-09-06 09:51 | PN ---
Progress Note, Physician Chief Complaint: SBO absominal pain History of Present Illness: 52 yo female with PMH frequent SBO, Crohn's disease, s/p hemicolectomy, and pancreatitis who presents to the ED for evaluation of abdominal pain since last night. Now passing flatus and BM. Abdominal pain is improved. NGT removed. No complaints overnight. . - Current Medication List Current Medications: Active Medications Acetaminophen (Ofirmev Injection -) 1,000 mg IVPB Q6H PRN PRN Reason: PAIN LEVEL 6-10 Last Admin: 09/05/17 10:47 Dose: 1,000 mg Sodium Chloride (Normal Saline -) 1,000 mls @ 125 mls/hr IV ASDIR MANUEL Last Admin: 09/06/17 03:40 Dose: 125 mls/hr Ondansetron HCl (Zofran Injection) 4 mg IVPUSH Q6H PRN PRN Reason: NAUSEA Last Admin: 09/05/17 09:26 Dose: 4 mg - Objective Vital Signs: Vital Signs Temperature 98.8 F 09/06/17 06:00 Pulse Rate 76 09/06/17 06:00 Respiratory Rate 20 09/06/17 06:00 Blood Pressure 143/83 09/06/17 06:00 O2 Sat by Pulse Oximetry (%) 100 09/05/17 21:00 Vital Signs Period Temp Pulse Resp BP Sys/Hall Pulse Ox Last 24 Hr 98.6 F-99.0 F 58-78 17-20 121-143/74-92 99-100 Constitutional: Yes: No Distress, Calm, Obese Eyes: Yes: Conjunctiva Clear, EOM Intact HENT: Yes: Atraumatic, Normocephalic Neck: Yes: Supple, Trachea Midline Cardiovascular: Yes: Regular Rate and Rhythm, S1, S2 Respiratory: Yes: Regular, CTA Bilaterally Gastrointestinal: Yes: Normal Bowel Sounds, Soft. No: Tenderness ...Rectal Exam: Yes: Deferred Genitourinary: No: CVA Tenderness - Left, CVA Tenderness - Right Extremities: No: Cool, Cyanosis Edema: No Peripheral Pulses WNL: Yes Peripheral Pulses: Left Radial: 2+, Right Radial: 2+, Left Doralis Pedis: 2+, Right Dorsalis Pedis: 2+ Integumentary: No: Jaundice, Rash Neurological: Yes: Alert, Oriented Psychiatric: Yes: Alert, Oriented Labs: CBC, BMP 09/05/17 06:30 09/05/17 06:30 Problem List - Problems (1) Small bowel obstruction Assessment/Plan: 52 yo female PMH SBO and Chron's with previous bowel resections, will likely resolve with non-operative management. Having BM and flatus, abdominal pain mostly resolved. No further surgical intervention resolved. tolerating regular diet IV antibotics GI and DVT prophylaxsis no further surgical intervention Code(s): K56.69 - OTHER INTESTINAL OBSTRUCTION * DO NOT USE * (2) Obesity Code(s): E66.9 - OBESITY, UNSPECIFIED Qualifiers: Obesity type: due to excess calories Serious obesity comorbidity presence: without serious comorbidity Body mass index: BMI 40.0-44.9 (3) Abdominal pain Code(s): R10.9 - UNSPECIFIED ABDOMINAL PAIN Qualifiers: Abdominal location: unspecified location Qualified Code(s): R10.9 - Unspecified abdominal pain (4) Nausea Code(s): R11.0 - NAUSEA (5) Crohns disease of small intestine Code(s): K50.00 - CROHN'S DISEASE OF SMALL INTESTINE WITHOUT COMPLICATIONS Qualifiers: Digestive disease complication type: with intestinal obstruction Qualified Code(s): K50.012 - Crohn's disease of small intestine with intestinal obstruction
--- NOTE | 2017-09-06 14:06 | PN ---
<Kaylen Willingham - Last Filed: 09/06/17 18:17> Physical Exam: SUBJECTIVE: Patient seen and examined at bedside. Yesterday, NGT removed. Today , pt has been OOB. +BM. Tolerating clear liquid diet, will advance and reassess. Denies RIZO, fever, chills, SOB, N/V or changes in urinary function. OBJECTIVE: Vital Signs Period Temp Pulse Resp BP Sys/Hall Pulse Ox Last 24 Hr 98.6 F-99.0 F 58-78 17-20 121-143/74-92 99-100 GENERAL: The patient is awake, alert, and fully oriented, in no acute distress. HEAD: Normal with no signs of trauma. EYES: PERRL, extraocular movements intact, sclera anicteric, conjunctiva clear. ENT: Ears normal, nares patent, oropharynx clear without exudates, moist mucous membranes. NECK: Trachea midline, full range of motion, supple. LUNGS: Breath sounds equal, clear to auscultation bilaterally, no wheezes, no crackles, no accessory muscle use. HEART: Regular rate and rhythm, S1, S2 without murmur, rub or gallop. ABDOMEN: Soft, nontender, nondistended, normoactive bowel sounds, no guarding. + vertical abdominal scar, keloid EXTREMITIES: 2+ pt pulses, warm, well-perfused, no edema. NEUROLOGICAL: Cranial nerves II through XII grossly intact. PSYCH: Normal mood, normal affect. SKIN: Warm, dry, normal turgor Active Medications Generic Name Dose Route Start Last Admin Trade Name Freq PRN Reason Stop Dose Admin Acetaminophen 1,000 mg 09/04/17 18:22 09/05/17 10:47 Ofirmev Injection - IVPB 1,000 mg Q6H PRN Administration PAIN LEVEL 6-10 Sodium Chloride 1,000 mls @ 125 mls/hr 09/04/17 18:30 09/06/17 03:40 Normal Saline - IV 125 mls/hr ASDIR MANUEL Administration Ondansetron HCl 4 mg 09/04/17 18:22 09/05/17 09:26 Zofran Injection IVPUSH 4 mg Q6H PRN Administration NAUSEA IMAGING 09/04/17: Abd flat and upright: scattered air-fluid levels. right flank sutures. no free air. 09/04/17: CTAP w/contrast: small bowel obstruction at level of anastamotic sutures in the lower mid abdomen and possibly also in a different area with fecalized small bowel loops. cannot r/o closed loop obstruction and surgical consult is advised. 09/05/17: Abd flat and upright: contrast migration into colon. no sign of a small bowel obstruction or free air Microbiology 09/04/17 11:50 Urine - Urine Clean Catch Urine Culture - Final Contaminated: Please Repeat ASSESSMENT/PLAN: 52 y/o F w/PMH of Crohn's disease, SBO (s/p surgery 2013), Pancreatitis, bowel perforation s/p right hemicolectomy in 2011 who presented to the ED with c/o epigastric/periumbilical abd pain since night prior. Admitted for SBO. #Abdominal pain 2/2 to SBO- resolving -as per imaging, with resolution - no longer with SBO -NGT removed yesterday -with BMs, no nausea -will advance diet -Surgery: Dr. Moore -Zofran 4 mg IV q6h PRN for nausea -IV tylenol PRN for pain 6-10 #Hx of Crohn's Dz -c/w mesalamine and humira when able to tolerate PO -will start tomorrow, if pt still w/o N/V #Hematuria on UA-resolved -from period #F/E/N -IVF have been d/c, tolerating PO -Monitor electrolytes -regular diet #PPX -SCDs, EAM when possible #Dispo continued monitoring on med-surg PT Visit type - Emergency Visit Emergency Visit: No - New Patient This patient is new to me today: Yes Date on this admission: 09/06/17 - Critical Care Critical Care patient: No <Jazmine Deleon - Last Filed: 09/06/17 19:43> Physical Exam: Agree with the resident's note , will check with Surgeon , the further plan.
--- NOTE | 2017-09-06 14:35 | PN ---
Teaching Attending Note Name of Resident: Kaylen Willingham ATTENDING PHYSICIAN STATEMENT I saw and evaluated the patient. I reviewed the resident's note and discussed the case with the resident. I agree with the resident's findings and plan as documented. SUBJECTIVE: OBJECTIVE: Vital Signs Temperature 99.0 F 09/06/17 10:00 Pulse Rate 65 09/06/17 10:00 Respiratory Rate 17 09/06/17 10:00 Blood Pressure 127/74 09/06/17 10:00 O2 Sat by Pulse Oximetry (%) 99 09/06/17 09:00 CBCD WBC 5.2 K/mm3 (4.0-10.0) 09/05/17 06:30 RBC 3.89 M/mm3 (3.60-5.2) 09/05/17 06:30 Hgb 12.3 GM/dL (10.7-15.3) 09/05/17 06:30 Hct 36.6 % (32.4-45.2) 09/05/17 06:30 MCV 93.9 fl (80-96) 09/05/17 06:30 MCHC 33.8 g/dl (32.0-36.0) 09/05/17 06:30 RDW 14.0 % (11.6-15.6) 09/05/17 06:30 Plt Count 195 K/MM3 (134-434) 09/05/17 06:30 MPV 8.1 fl (7.5-11.1) 09/05/17 06:30 CMP Sodium 143 mmol/L (136-145) 09/05/17 06:30 Potassium 3.7 mmol/L (3.5-5.1) 09/05/17 06:30 Chloride 108 mmol/L (98-107) H 09/05/17 06:30 Carbon Dioxide 28 mmol/L (21-32) 09/05/17 06:30 Anion Gap 7 (8-16) L 09/05/17 06:30 BUN 6 mg/dL (7-18) L 09/05/17 06:30 Creatinine 0.8 mg/dL (0.55-1.02) 09/05/17 06:30 Creat Clearance w eGFR > 60 (>60) 09/05/17 06:30 Random Glucose 87 mg/dL (74-106) 09/05/17 06:30 Calcium 7.9 mg/dL (8.5-10.1) L 09/05/17 06:30 Total Bilirubin 0.6 mg/dL (0.2-1.0) 09/05/17 06:30 AST 15 U/L (15-37) 09/05/17 06:30 ALT 26 U/L (12-78) 09/05/17 06:30 Alkaline Phosphatase 46 U/L (45-117) 09/05/17 06:30 Total Protein 6.0 g/dl (6.4-8.2) L 09/05/17 06:30 Albumin 2.7 g/dl (3.4-5.0) L 09/05/17 06:30 Current Medications Generic Name Dose Route Start Last Admin Trade Name Freq PRN Reason Stop Dose Admin Acetaminophen 1,000 mg 09/04/17 18:22 09/05/17 10:47 Ofirmev Injection - IVPB 1,000 mg Q6H PRN Administration PAIN LEVEL 6-10 Ondansetron HCl 4 mg 09/04/17 18:22 09/05/17 09:26 Zofran Injection IVPUSH 4 mg Q6H PRN Administration NAUSEA Home Medications Medication Instructions Recorded Mesalamine [Pentasa] 1,000 mg PO QID 09/29/11 Adalimumab [Humira] 0 mg SQ ASDIR 09/03/14 Acetaminophen [Tylenol .Regular 650 mg PO Q4H PRN #0 tablet 08/13/15 Strength -] ASSESSMENT AND PLAN: Patient is a 52 y/o Female with PMHx of Crohn's disease, presented with SBO (s/ p surgery 2013), Pancreatitis, bowel perforation s/p right hemicolectomy in 2011 presents to the ER with c/o epigastric/periumbilical abd pain since yesterday night. Admitted for SBO. #Abdominal pain secondary to SBO, ng TUBE continues , sURGEY on the case ; no fruther pain as per patient #Hx of Crohn's Dz c/w mesalamine and humira when able to tolerate PO #Hematuria on UA DUE TO HER MENSTRUAL CYCLE DVT ppx: SCDs
[2017-09-07 08:14] LABS: BASO % 0.6 % (0-2.0); EOS % 1.8 % (0-4.5); HEMATOCRIT 36.6 % (32.4-45.2); HEMOGLOBIN 12.2 GM/dL (10.7-15.3); LYMPH % 45.3 % (8-40); MCH 31.3 pg (25.7-33.7); MCHC 33.4 g/dl (32.0-36.0); MEAN CELL VOLUME 93.6 fl (80-96); MEAN PLT VOLUME 7.8 fl (7.5-11.1); NEUT % 46.3 % (42.8-82.8); PLATELET COUNT 199 K/MM3 (134-434); RBC 3.91 M/mm3 (3.60-5.2); WHITE BLOOD COUNT 4.7 K/mm3 (4.0-10.0)
[2017-09-07 08:43] LABS: CHLORIDE 106 mmol/L (98-107); POTASSIUM 3.7 mmol/L (3.5-5.1); SODIUM 140 mmol/L (136-145)
[2017-09-07 08:50] LABS: ANION GAP 7 (8-16); BLOOD UREA NITROGEN 6 mg/dL (7-18); CALCIUM 8.5 mg/dL (8.5-10.1); CO2 27 mmol/L (21-32); CREATININE 0.7 mg/dL (0.55-1.02); GLUCOSE,RANDOM 87 mg/dL (74-106)
[2017-09-07 10:18] VITALS: BP 124/76; PULSE 61; TEMP 97.9
[2017-09-07 13:53] LABS: MAGNESIUM 1.8 mg/dL (1.8-2.4); PHOSPHOROUS 3.4 mg/dL (2.5-4.9)
--- NOTE | 2017-09-07 21:15 | PN ---
Teaching Attending Note Name of Resident: Kaylen Willingham ATTENDING PHYSICIAN STATEMENT I saw and evaluated the patient. I reviewed the resident's note and discussed the case with the resident. I agree with the resident's findings and plan as documented. SUBJECTIVE: Patient is comfortable, tolerate diet well, NAD. No further abdominal pain. wants to go home. OBJECTIVE: Vital Signs Temperature 97.9 F 09/07/17 08:25 Pulse Rate 61 09/07/17 08:25 Respiratory Rate 20 09/07/17 08:25 Blood Pressure 124/76 09/07/17 08:25 O2 Sat by Pulse Oximetry (%) 100 09/06/17 21:00 CBCD WBC 4.7 K/mm3 (4.0-10.0) 09/07/17 07:01 RBC 3.91 M/mm3 (3.60-5.2) 09/07/17 07:01 Hgb 12.2 GM/dL (10.7-15.3) 09/07/17 07:01 Hct 36.6 % (32.4-45.2) 09/07/17 07:01 MCV 93.6 fl (80-96) 09/07/17 07:01 MCHC 33.4 g/dl (32.0-36.0) 09/07/17 07:01 RDW 14.0 % (11.6-15.6) 09/07/17 07:01 Plt Count 199 K/MM3 (134-434) 09/07/17 07:01 MPV 7.8 fl (7.5-11.1) 09/07/17 07:01 CMP Sodium 140 mmol/L (136-145) 09/07/17 07:01 Potassium 3.7 mmol/L (3.5-5.1) 09/07/17 07:01 Chloride 106 mmol/L (98-107) 09/07/17 07:01 Carbon Dioxide 27 mmol/L (21-32) 09/07/17 07:01 Anion Gap 7 (8-16) L 09/07/17 07:01 BUN 6 mg/dL (7-18) L 09/07/17 07:01 Creatinine 0.7 mg/dL (0.55-1.02) 09/07/17 07:01 Creat Clearance w eGFR > 60 (>60) 09/07/17 07:01 Random Glucose 87 mg/dL (74-106) 09/07/17 07:01 Calcium 8.5 mg/dL (8.5-10.1) 09/07/17 07:01 Total Bilirubin 0.6 mg/dL (0.2-1.0) 09/05/17 06:30 AST 15 U/L (15-37) 09/05/17 06:30 ALT 26 U/L (12-78) 09/05/17 06:30 Alkaline Phosphatase 46 U/L (45-117) 09/05/17 06:30 Total Protein 6.0 g/dl (6.4-8.2) L 09/05/17 06:30 Albumin 2.7 g/dl (3.4-5.0) L 09/05/17 06:30 Home Medications Medication Instructions Recorded Mesalamine [Pentasa] 1,000 mg PO QID 09/29/11 Adalimumab [Humira] 0 mg SQ ASDIR 09/03/14 PE: comfrotable with NAD chest: CTA BL abdomen: soft NT, no rebound, BS positive rest per resident's note ASSESSMENT AND PLAN: Patient is a 52 y/o Female with PMHx of Crohn's disease, presented with SBO (s/ p surgery 2013), Pancreatitis, bowel perforation s/p right hemicolectomy in 2011 presents to the ER with c/o epigastric/periumbilical abd pain since yesterday night. Admitted for SBO. #Abdominal pain secondary to SBO, improved, tolerated diet well, will discharge patient home, follow with in a week period. #Hx of Crohn's Dz c/w mesalamine and humira when able to tolerate PO DVT ppx: SCDs
--- NOTE | 2017-09-07 22:54 | DS ---
Physical Exam: SUBJECTIVE: Patient seen and examined at bedside. No acute events overnight. Today, pt tolerating diet, feeling well and ready to go home. Has been passing flatus, and with +BM. Seen ambulating freely. Denies RIZO, fever, chills, SOB, chest pain, or changes in urinary or bowel function. OBJECTIVE: Vital Signs Period Temp Pulse Resp BP Sys/Hall Pulse Ox Last 24 Hr 97.9 F-98.8 F 60-61 20-20 124-139/76-76 PHYSICAL EXAM GENERAL: The patient is awake, alert, and fully oriented, in no acute distress. HEAD: Normal with no signs of trauma. EYES: PERRL, extraocular movements intact, sclera anicteric, conjunctiva clear. ENT: Ears normal, nares patent, oropharynx clear without exudates, moist mucous membranes. NECK: Trachea midline, full range of motion, supple. LUNGS: Breath sounds equal, clear to auscultation bilaterally, no wheezes, no crackles, no accessory muscle use. HEART: Regular rate and rhythm, S1, S2 without murmur, rub or gallop. ABDOMEN: Soft, nontender, nondistended, normoactive bowel sounds, no guarding. + vertical abdominal scar, keloid EXTREMITIES: 2+ pt pulses, warm, well-perfused, no edema. NEUROLOGICAL: Cranial nerves II through XII grossly intact. PSYCH: Normal mood, normal affect. SKIN: Warm, dry, normal turgor LABS Laboratory Results - last 24 hr 09/07/17 09/07/17 07:01 07:01 WBC 4.7 RBC 3.91 Hgb 12.2 Hct 36.6 MCV 93.6 MCH 31.3 MCHC 33.4 RDW 14.0 Plt Count 199 MPV 7.8 Absolute Neuts (auto) 2.2 Neutrophils % 46.3 Lymphocytes % 45.3 H Monocytes % 6.0 Eosinophils % 1.8 Basophils % 0.6 Nucleated RBC % 0 Sodium 140 Potassium 3.7 Chloride 106 Carbon Dioxide 27 Anion Gap 7 L BUN 6 L Creatinine 0.7 Creat Clearance w eGFR > 60 Random Glucose 87 Calcium 8.5 Phosphorus 3.4 Magnesium 1.8 Additional tests 09/04/17 09/04/17 09/04/17 08:16 08:16 08:16 WBC 5.4 Hgb 13.6 Hct 40.6 Plt Count 219 Sodium 140 Potassium 4.4 Chloride 106 BUN 9 Creatinine 0.9 Lactic Acid 1.8 AST 24 ALT 31 Serum , Qual 09/04/17 09/05/17 09/05/17 08:56 06:30 06:30 WBC 5.2 Hgb 12.3 Hct 36.6 Plt Count 195 Sodium 143 Potassium 3.7 Chloride 108 H BUN 6 L Creatinine 0.8 Lactic Acid AST 15 ALT 26 Serum , Qual Negative 09/07/17 09/07/17 07:01 07:01 WBC 4.7 Hgb 12.2 Hct 36.6 Plt Count 199 Sodium 140 Potassium 3.7 Chloride 106 BUN 6 L Creatinine 0.7 Lactic Acid IMAGING 09/04/17: Abd flat and upright: scattered air-fluid levels. right flank sutures. no free air. 09/04/17: CTAP w/contrast: small bowel obstruction at level of anastamotic sutures in the lower mid abdomen and possibly also in a different area with fecalized small bowel loops. cannot r/o closed loop obstruction and surgical consult is advised. 09/05/17: Abd flat and upright: contrast migration into colon. no sign of a small bowel obstruction or free air Microbiology 09/04/17 11:50 Urine - Urine Clean Catch Urine Culture - Final Contaminated: Please Repeat HOSPITAL COURSE: Date of Admission:09/04/17 Date of Discharge: 09/07/17 Admit diagnosis: small bowel obstruction 52 y/o F w/PMH of Crohn's disease, SBO (s/p surgery 2013), Pancreatitis, bowel perforation s/p right hemicolectomy in 2011 who presented to the ER with c/o epigastric/periumbilical abd pain since night prior. Pain at its worst was 10/ 10 and had been constant (although not at 10/10), with no radiation. Pt's last BM was yesterday during the day and the last time she passed flatus was at the same time. Pt drank dionte tea night prior and took two tylenol with some relief. When pt's pain worsened in the middle of the night on the day of admission, she came to the ED for further evaluation. Pt admitted for SBO. While in the ED, pt had one episode of NBNB emesis. Pt managed for SBO with NGT. Two days prior to discharge, was removed. Pt seen by surgery team and abdominal imaging was followed to check on resolution of SBO. Her diet was advanced accordingly, and on day of d/c, pt able to ambulate freely, passing flatus and stool, tolerating diet without N/V and without abdominal discomfort. States that she feels well and ready to go home. Will follow with surgery in 1 week , as well as with PCP. She may continue her home meds on d/c for crohn's disease. Minutes to complete discharge: 48 Discharge Summary Reason For Visit: SMALL BOWEL OBSTRUCTION,ABDOMINAL PAIN Condition: Stable - Instructions Diet, Activity, Other Instructions: You were in the hospital because you were found to have a small bowel obstruction, which has resolved. Your progress was monitored through abdominal imaging. Your diet was advanced and you were seen by the surgeon, Dr. Moore. Your visit You were seen by the medicine and surgical teams Medications You may continue your home medications. Follow-up Please follow up with the following doctors: -Dr. Dawson- your primary care doctor - 1 week -Dr. Moore- the surgeon that saw you in the hospital - 1 week If you develop severe abdominal pain, chest pain, or shortness of breath, please go to the hospital. Referrals: Chago Moore MD [Staff Physician] - 1 Week Chago Dawson MD [Primary Care Provider] - 1 Week Disposition: HOME - Home Medications Comprehensive Discharge Medication List: Ambulatory Orders Mesalamine [Pentasa] 1,000 mg PO QID 09/29/11 Adalimumab [Humira] 0 mg SQ ASDIR 09/03/14 This patient is new to me today: No Emergency Visit: No Critical Care patient: No - Discharge Referral Referred to [facility] Med P.C.: No
== END 2017-09-07 14:52 | disposition home or self-care (01) | DRG 389 ==
LOC: JER 06:36 → JERBED 11:03 → OBSVTOIN 16:35 → J8W 21:27
PROVIDERS: ADMIT Internal Medicine; ATTEND Internal Medicine
PROC: 0D9670Z Drainage of Stomach with Drainage Device, Via Natural or Artificial Opening (ICD-10-PCS; principal; 2017-09-04)
DX: K56.609 Unspecified intestinal obstruction, unspecified as to partial versus complete obstruction (principal); K50.012 Crohn's disease of small intestine with intestinal obstruction; K86.1 Other chronic pancreatitis; E66.9 Obesity, unspecified; Z68.35 Body mass index [BMI] 35.0-35.9, adult; K43.9 Ventral hernia without obstruction or gangrene; R10.9 Unspecified abdominal pain; R11.0 Nausea; R31.9 Hematuria, unspecified
CPT/HCPCS: 36415; 74019-TC-FY; 74177-TC; 80048; 80053; 81003; 81015; 83605; 83690; 83735; 84100; 84703; 85025; 87086; 99283-25; G0378; J0131; J7030

== ENCOUNTER 2017-12-23 06:39 | Inpatient (IN) | payer OTHER ==
--- NOTE | 2017-12-23 07:41 | PDOC ---
History of Present Illness - General History Source: Patient Exam Limitations: No Limitations - History of Present Illness Initial Comments: 12/23/17 09:44 62-year-old female with history of Crohn's disease, previous abdominal surgeries and multiple episodes of recurrent SBO presents with severe diffuse abdominal pain that initially began supraumbilically and has now spread diffusely,. Pain is constant, waxing and waning in severity (10 of 10 on arrival ); pain is without alleviating or exacerbating factors. Patient reports that she is not passing Flatau's since the onset of symptoms. Patient denies nausea/ vomiting/diarrhea/melena/hematochezia. Is similar to previous episodes of SBO. Patient reports tactile fevers but no chills. REVIEW OF SYSTEMS CONSTITUTIONAL: No fever, no chills, no fatigue EYES: No visual changes ENT: No ear pain, no sore throat CARDIOVASCULAR: No chest pain, no palpitations RESPIRATORY: No cough, no SOB GI: + abdominal pain, no nausea, no vomiting, no constipation, no diarrhea GENITOURINARY: No dysuria, no frequency, no hematuria MUSKULOSKELETAL: No backpain, no joint pain, no myalgias SKIN: No rash NEURO: No headache EXAMINATION CONSTITUTIONAL: On arrival, patient is awake and alert, obese, moaning in pain, in moderate distress HEAD: Normocephalic; atraumatic EYES: PERRL; EOM intact no scleral icterus, ENMT: External appears normal; mm-dry NECK: Supple; non-tender; no cervical lymphadenopathy CARD: Normal S1, S2; no murmurs, rubs, or gallops RESP: Normal chest excursion with respiration; breath sounds clear and equal bilaterally; no wheezes, rhonchi, or rales ABD: Soft, non-distended; + mild to moderate tenderness to palpation in the epigastric, left lower quadrant and periumbilical area without guarding or rebound; bowel sounds are hyperactive in all 4 quadrants;; no palpable organomegaly, no palpable hernias EXT: Normal ROM in all four extremities; non-tender to palpation; distal pulses intact SKIN: Warm, dry, no rash NEURO: No focal neurological deficiencies. <Bowen Hanson - Last Filed: 12/23/17 16:28> <Alma Feliciano - Last Filed: 12/23/17 16:30> - General Chief Complaint: Pain Stated Complaint: ABD PAIN Time Seen by Provider: 12/23/17 07:40 Past History - Past Medical History Anemia: No Asthma: No Cancer: No Cardiac Disorders: No CVA: No COPD: No CHF: No Dementia: No Diabetes: No GI Disorders: Yes (crohn's disease) Disorders: No HTN: No Hypercholesterolemia: No Liver Disease: No Seizures: No Thyroid Disease: No - Surgical History Abdominal Surgery: Yes (ILEOSTOMY 05/2011, with reversal) Appendectomy: No Cardiac Surgery: No Cholecystectomy: No Lung Surgery: No Neurologic Surgery: No Orthopedic Surgery: No - Immunization History Immunization Up to Date: Yes - Suicide/Smoking/Psychosocial Hx Smoking Status: No Smoking History: Never smoked Have you smoked in the past 12 months: No Number of Cigarettes Smoked Daily: 0 Hx Alcohol Use: No Drug/Substance Use Hx: No Substance Use Type: None Hx Substance Use Treatment: No <Bowen Hanson - Last Filed: 12/23/17 16:28> <Alma Feliciano - Last Filed: 12/23/17 16:30> - Past Medical History Allergies/Adverse Reactions: Allergies Allergy/AdvReac Type Severity Reaction Status Date / Time No Known Drug Allergies Allergy Verified 12/23/17 07:56 Home Medications: Ambulatory Orders Mesalamine [Pentasa] 1,000 mg PO QID 09/29/11 Adalimumab [Humira] 0 mg SQ ASDIR 09/03/14 Abd/GI Specific PMHX - Complaint Specific PMHX Colitis: Yes Gall Bladder Disease: No Pancreatitis: Yes <Bowen Hanson - Last Filed: 12/23/17 16:28> *Physical Exam - Vital Signs Last Vital Signs Temp Pulse Resp BP Pulse Ox 98.5 F 75 18 127/77 100 12/23/17 07:50 12/23/17 07:50 12/23/17 07:50 12/23/17 07:50 12/23/17 07:50 <Alma Feliciano - Last Filed: 12/23/17 16:30> ED Treatment Course - LABORATORY CBC & Chemistry Diagram: 12/23/17 08:47 12/23/17 10:13 <Bowen Hanson - Last Filed: 12/23/17 16:28> - LABORATORY CBC & Chemistry Diagram: 12/23/17 08:47 12/23/17 10:13 - ADDITIONAL ORDERS Additional order review: Laboratory Results 12/23/17 12/23/17 12/23/17 14:27 10:13 08:50 PT with INR INR Sodium 137 Potassium 4.6 Chloride 109 H Carbon Dioxide 20 L Anion Gap 8 BUN 10 Creatinine 0.7 Creat Clearance w eGFR > 60 Random Glucose 106 Lactic Acid Calcium 8.8 Total Bilirubin 0.6 AST 30 ALT 33 Alkaline Phosphatase 50 Total Protein 7.2 Albumin 3.2 L Lipase 132 Urine Color Ltyellow Urine Appearance Clear Urine pH 6.0 Ur Specific [place] 1.055 H Urine Protein Negative Urine Glucose (UA) Negative Urine Ketones Negative Urine Blood Negative Urine Nitrite Negative Urine Bilirubin Negative Urine Urobilinogen Negative Ur Leukocyte Esterase Negative Blood Type O POSITIVE Antibody Screen Negative 12/23/17 12/23/17 12/23/17 08:47 08:47 08:33 PT with INR 11.20 INR 0.95 Sodium Cancelled Potassium Cancelled Chloride Cancelled Carbon Dioxide Cancelled Anion Gap Cancelled BUN Cancelled Creatinine Cancelled Creat Clearance w eGFR Cancelled Random Glucose Cancelled Lactic Acid 2.1 H Calcium Cancelled Total Bilirubin Cancelled AST Cancelled ALT Cancelled Alkaline Phosphatase Cancelled Total Protein Cancelled Albumin Cancelled Lipase Cancelled Urine Color Urine Appearance Urine pH Ur Specific [place] Urine Protein Urine Glucose (UA) Urine Ketones Urine Blood Urine Nitrite Urine Bilirubin Urine Urobilinogen Ur Leukocyte Esterase Blood Type Antibody Screen 12/23/17 08:47 RBC 4.70 MCV 93.7 MCHC 33.1 RDW 14.2 MPV 8.5 Neutrophils % 73.5 D Lymphocytes % 18.9 D Monocytes % 6.4 Eosinophils % 0.7 Basophils % 0.5 - Medications Given in the ED: ED Medications Discontinued Medications Generic Name Dose Route Start Last Admin Trade Name Freq PRN Reason Stop Dose Admin Lactated Ringer's 1,000 ml in 1,000 mls @ 1,000 mls/hr 12/23/17 07:54 08:15 Lactated Ringers Solution IV 12/23/17 08:53 1,000 mls/hr ONCE STA Administration Morphine Sulfate 4 mg 12/23/17 07:54 12/23/17 08:15 Morphine Injection - IVPUSH 12/23/17 07:55 4 mg ONCE ONE Administration Morphine Sulfate 2 mg 12/23/17 09:30 12/23/17 10:13 Morphine Injection - IVPUSH 12/23/17 09:31 2 mg ONCE ONE Administration Ondansetron HCl 8 mg 12/23/17 08:24 12/23/17 09:07 Zofran Injection IVPB 12/23/17 08:25 8 mg ONCE ONE Administration Ondansetron HCl 4 mg 12/23/17 10:01 12/23/17 10:13 Zofran Injection IVPUSH 12/23/17 10:02 4 mg ONCE ONE Administration <Alma Feliciano - Last Filed: 12/23/17 16:30> Medical Decision Making - Medical Decision Making 12/23/17 09:46 52-year-old female with history of Crohn's disease, frequent SBO's presents with severe abdominal pain and obstipation. I suspect recurrent SBO. Will keep nothing by mouth, will hydrate; we'll administer pain meds and antiemetics. Will obtain an abdominal series to evaluate for dilated loops of small bowel or air-fluid levels. Will consider CT that and pelvis with by mouth contrast to identify the transition point. Patient will likely require an NG tube. Likely admission. 12/23/17 11:52 Abdominal series reveals paucity of air. Will obtain CT with by mouth contrast. We'll administer additional pain medication and antiemetics. 12/23/17 16:[address] of abdomen and pelvis reveals fluid-filled loops of small bowel consistent with small bowel obstruction. Surgery consulted. Will place NG tube for decompression. We'll continue with IV fluid resuscitation. Will admit. <Bowen Hanson - Last Filed: 12/23/17 16:28> - Medical Decision Making 12/23/17 16:07 Call placed to GI, waiting for a call back from Dr. Castillo 12/23/17 16:[address] Appiah <Alma Feliciano - Last Filed: 12/23/17 16:30> *DC/Admit/Observation/Transfer - Discharge Dispostion Decision to Admit order: Yes <Bowen Hanson - Last Filed: 12/23/17 16:28> <Alma Feliciano - Last Filed: 12/23/17 16:30> Diagnosis at time of Disposition: Small bowel obstruction - Discharge Dispostion Condition at time of disposition: Fair - Referrals Referrals: Chago Dawson MD [Primary Care Provider] - - Patient Instructions - Post Discharge Activity
[2017-12-23] MEDS ORDERED: LACTATED RINGERS SOLUTION 1,000 ML/1,000 ML INFUS.BAG IV STA ×2 (07:54→15:58)
[2017-12-23] MEDS ORDERED: morphine CARPU-JECT 4 MG/1 ML DISP.SYRIN IVPUSH ONE (07:54)
[2017-12-23] MEDS ORDERED: morphine SULFATE 4 MG/ML VIAL ONE (08:04)
[2017-12-23] MEDS ORDERED: ONDANSETRON 4 MG/2 ML VIAL IVPB ONE (08:24)
[2017-12-23] MEDS ORDERED: ONDANSETRON 4 MG/2 ML VIAL ONE ×2 (08:54→10:05)
[2017-12-23 09:04] LABS: BASO % 0.5 % (0-2.0); EOS % 0.7 % (0-4.5); HEMOGLOBIN 14.6 GM/dL (10.7-15.3); LYMPH % 18.9 % (8-40); MCHC 33.1 g/dl (32.0-36.0); MEAN CELL VOLUME 93.7 fl (80-96); MEAN PLT VOLUME 8.5 fl (7.5-11.1); MONO % 6.4 % (3.8-10.2); NEUT % 73.5 % (42.8-82.8); PLATELET COUNT 210 K/MM3 (134-434); RDW 14.2 % (11.6-15.6)
[2017-12-23 09:16] LABS: INR 0.95 (0.83-1.09); PROTHROMBIN TIME (PATIENT) 11.2 SEC (9.7-13.0)
[2017-12-23] MEDS ORDERED: morphine CARPU-JECT 2 MG/1 ML DISP.SYRIN IVPUSH ONE (09:30)
[2017-12-23] MEDS ORDERED: MORPHINE SULFATE 2 MG/ML VIAL ONE (09:46)
[2017-12-23] MEDS ORDERED: ONDANSETRON 4 MG/2 ML VIAL IVPUSH ONE (10:01)
[2017-12-23 11:18] LABS: ANISOCYTOSIS 3+; MACROCYTOSIS 0; PLATELET ESTIMATE NORMAL
[2017-12-23 12:05] LABS: ALBUMIN 3.2 g/dl (3.4-5.0); ALK PHOS 50 U/L (45-117); BILIRUBIN,TOTAL 0.6 mg/dL (0.2-1); BLOOD UREA NITROGEN 10 mg/dL (7-18); CALCIUM 8.8 mg/dL (8.5-10.1); CO2 20 mmol/L (21-32); CREATININE 0.7 mg/dL (0.55-1.3); GLUCOSE,RANDOM 106 mg/dL (74-106); LIPASE 132 U/L (73-393); POTASSIUM 4.6 mmol/L (3.5-5.1); SGOT/AST 30 U/L (15-37); SGPT/ALT 33 U/L (13-61); SODIUM 137 mmol/L (136-145); TOT PROT 7.2 g/dl (6.4-8.2)
[2017-12-23 12:08] LABS: ANION GAP 8 MMOL/L (8-16); CHLORIDE 109 mmol/L (98-107)
[2017-12-23 14:38] LABS: URINE APPEARANCE CLEAR; URINE BILIRUBIN NEGATIVE (<2.0 mg/dL); URINE COLOR LTYELLOW; URINE GLUCOSE (UA) NEGATIVE (NEGATIVE); URINE KETONE NEGATIVE (NEGATIVE); URINE LEUK ESTERASE NEGATIVE (NEGATIVE); URINE NITRITE NEGATIVE (NEGATIVE); URINE PROTEIN NEGATIVE (NEGATIVE); URINE UROBILINOGEN NEGATIVE mg/dL (0.2-1.0)
--- NOTE | 2017-12-23 15:39 | CONSULT ---
Consult Consult Specialty:: eneral Reason for Consultation:: small bowel dilation and fecalization - History of Present Illness Chief Complaint: abdominal pain History of Present Illness: 52 yo female with PMH frequent SBO, Crohn's disease, s/p hemicolectomy, and pancreatitis who presents to the ED for evaluation of abdominal pain since last night. The patient states her abdominal pain gradullly worsened over 4 days which prompted her to visit the ED. She reports associated symptoms of nausea, spit-up and one episode of emesis. She has had several similar episode that were managed non-operatively since he last surgery in 2013. NGT was placed for decompression, output was scant. She has not yet had a BM but has been passing flatus. denies fever and chills. last endoscopy was >1 year ago. we were asked to assess. 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) - Past Surgical History Past Surgical History: Yes: Ileosotomy - Alcohol/Substance Use Hx Alcohol Use: No History of Substance Use: reports: None - Smoking History Smoking history: Never smoked Have you smoked in the past 12 months: No Aproximately how many cigarettes per day: 0 - Social History Usual Living Arrangement: With Spouse ADL: Independent History of Recent Travel: Yes Home Medications - Allergies Allergies/Adverse Reactions: Allergies Allergy/AdvReac Type Severity Reaction Status Date / Time No Known Drug Allergies Allergy Verified 12/23/17 07:56 - Home Medications Home Medications: Ambulatory Orders Mesalamine [Pentasa] 1,000 mg PO QID 09/29/11 Adalimumab [Humira] 0 mg SQ ASDIR 09/03/14 Family Disease History - Family Disease History Family Disease History: Heart Disease: Father () Review of Systems - Review of Systems Eyes: denies: Blurred Vision, Recent Change in Vision HENT: denies: Difficult Swallowing, Throat Pain Cardiovascular: denies: Chest Pain, Palpitations Respiratory: denies: Cough, SOB Gastrointestinal: reports: Abdominal Pain, Constipation, Indigestion Genitourinary: denies: Discharge, Dysuria, Flank Pain Breasts: reports: No Symptoms Reported. denies: Pain Musculoskeletal: denies: Muscle Pain, Muscle Weakness Integumentary: denies: Lesions, Rash Neurological: denies: Confusion, Seizure, Syncope Endocrine: denies: Unexplained Weight Gain, Unexplained Weight Loss Hematology/Lymphatic: denies: Easily Bruised, Excessive Bleeding Psychiatric: denies: Anxiety, Depression Physical Exam Vital Signs: Vital Signs Temperature 98.5 F 12/23/17 07:50 Pulse Rate 75 12/23/17 07:50 Respiratory Rate 18 12/23/17 07:50 Blood Pressure 127/77 12/23/17 07:50 O2 Sat by Pulse Oximetry (%) 100 12/23/17 07:50 Vital Signs Period Temp Pulse Resp BP Sys/Hall Pulse Ox Last 24 Hr 98.5 F 75 18 127/77 100 Constitutional: Yes: Well Nourished, No Distress, Calm Eyes: Yes: Conjunctiva Clear, EOM Intact HENT: Yes: Atraumatic, Normocephalic Neck: Yes: Supple, Trachea Midline Cardiovascular: Yes: Regular Rate and Rhythm, S1, S2 Respiratory: Yes: Regular Gastrointestinal: Yes: Normal Bowel Sounds, Soft, Abdomen, Obese, Tenderness ( RUQ). No: Distention ...Rectal Exam: Yes: Sphincter Tone Normal. No: Hemorrhoids/Internal, Mass Renal/: No: CVA Tenderness - Left, CVA Tenderness - Right Extremities: No: Cool, Cyanosis Edema: No Peripheral Pulses WNL: Yes Integumentary: No: Jaundice, Rash Neurological: Yes: Alert, Oriented Psychiatric: Yes: Alert, Oriented Labs: CBC, BMP 12/23/17 08:47 12/23/17 10:13 Imaging - Results X-ray: Report Reviewed, Image Reviewed (contrast day 1 - is now contouring stool in the colon) Cat Scan: Report Reviewed, Image Reviewed (dilated SB 4.5cm with fecalization possible SB colonic fistula) Problem List - Problems (1) Abdominal pain Assessment/Plan: 52yo female with Chrons on Humira, strictureing causing an SBO. May eventailly require stricturoplasty or resection. No acute surgical intervention at this time. Agree with GI's plan. Abdominal Xray to follow contrast Discontinue NGT NPO for now, will advance in AM Continue Steroids and IV antibiotics Will follow Thank you for the opportunity to participate in the care of this patient. Code(s): R10.9 - UNSPECIFIED ABDOMINAL PAIN Qualifiers: Abdominal location: generalized Qualified Code(s): R10.84 - Generalized abdominal pain (2) Nausea Code(s): R11.0 - NAUSEA (3) Small bowel obstruction Code(s): K56.69 - OTHER INTESTINAL OBSTRUCTION * DO NOT USE * (4) Crohn disease Code(s): K50.90 - CROHN'S DISEASE, UNSPECIFIED, WITHOUT COMPLICATIONS Qualifiers: Gastrointestinal tract location: small intestine Digestive disease complication type: with intestinal obstruction Qualified Code(s): K50.012 - Crohn's disease of small intestine with intestinal obstruction
[2017-12-23] MEDS: DEXTROSE 5%-LACTATED RINGERS 1,000 ML IV SCH ×2 (16:54→20:59)
--- NOTE | 2017-12-23 17:24 | CON.GI ---
Consult Consult Specialty:: GI Referred by:: Dr Hanson Reason for Consultation:: SBO in Crohn's disease - History of Present Illness Chief Complaint: 52 y.o. woman with Crohn's small bowel disease, developed abdominal pain, some vomiting last night and this a.m. Denies fever. Last BM was last evening. History includes small bowel resection in 2011 with temporary ileostomy, ileocolonic anastomosis. Has been on adalimumab (Humira) 40 mg SC every 2 weeks. Last injection was 9 days ago. Last seen in office on . Labs at that time showed a Hgb 12.3, WBC 4600, alb 3.8, ALT 23, creat 0.87, C-reactive protein of 0.8. She felt clinically well at the time. History of Present Illness: Patient, office notes. 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 Temporary ileostomy; ileocolonic anastomosis. - Alcohol/Substance Use Hx Alcohol Use: No History of Substance Use: reports: None - Smoking History Smoking history: Never smoked Have you smoked in the past 12 months: No Aproximately how many cigarettes per day: 0 - Social History Usual Living Arrangement: With Spouse ADL: Independent History of Recent Travel: Yes Home Medications - Allergies Allergies/Adverse Reactions: Allergies Allergy/AdvReac Type Severity Reaction Status Date / Time No Known Drug Allergies Allergy Verified 12/23/17 07:56 - Home Medications Home Medications: Ambulatory Orders Mesalamine [Pentasa] 1,000 mg PO QID 09/29/11 Adalimumab [Humira] 0 mg SQ ASDIR 09/03/14 Home Medications (free text): Also B12 tablets (dose unknown), vit D 600 units daily, iron and vitamin C daily Family Disease History - Family Disease History Family Disease History: Heart Disease: Father () Physical Exam-GI Vital Signs: Vital Signs Temperature 98.9 F 12/23/17 16:41 Pulse Rate 89 12/23/17 16:41 Respiratory Rate 18 12/23/17 16:41 Blood Pressure 119/71 12/23/17 16:41 O2 Sat by Pulse Oximetry (%) 100 12/23/17 16:41 Gastrointestinal Inspection: Yes: Scars (Surgical scars. Obese. Bowel sounds present, abdomen soft, no tenderness even to deep palpation, no rebound tenderness.) Labs: CBC, BMP 12/23/17 08:47 12/23/17 10:13 INR, PTT INR 0.95 (0.83-1.09) 12/23/17 08:47 Imaging - Results Cat Scan: Report Reviewed (CT scan shows small bowel obstruction which I suspect is a distal obstruction at the level of her anastomosis.), Image Reviewed Problem List - Problems (1) Crohn disease Code(s): K50.90 - CROHN'S DISEASE, UNSPECIFIED, WITHOUT COMPLICATIONS Qualifiers: Gastrointestinal tract location: small intestine Digestive disease complication type: with intestinal obstruction Qualified Code(s): K50.012 - Crohn's disease of small intestine with intestinal obstruction Assessment/Plan Stricturing Crohn's disease with recurrent SBO. Agree with NG suction. Will begin IV steroids and IV antibiotics in hopes of relieving whatever inflammatory component of obstruction may be present. To the extent that she has recurrent strictures, medical treatment will fail, but often there is an inflammatory as well as a stricturing (scarring) component. Monitor CBC/CMP and FUA.
[2017-12-23] MEDS ORDERED: HYDROCORTISONE SOD SUCCINATE 2 ML ONE (18:17)
[2017-12-23] MEDS: HYDROCORTISONE SOD SUCCINATE 100 MG/2 ML VIAL IVPB SCH (18:22)
--- NOTE | 2017-12-23 21:53 | HP ---
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) - Past Surgical History Past Surgical History: Yes: Ileosotomy - Smoking History Smoking history: Never smoked Have you smoked in the past 12 months: No Aproximately how many cigarettes per day: 0 - Alcohol/Substance Use Hx Alcohol Use: No History of Substance Use: reports: None - Social History ADL: Independent History of Recent Travel: Yes Home Medications - Allergies Allergies/Adverse Reactions: Allergies Allergy/AdvReac Type Severity Reaction Status Date / Time No Known Drug Allergies Allergy Verified 12/23/17 07:56 - Home Medications Home Medications: Ambulatory Orders Mesalamine [Pentasa] 1,000 mg PO QID 09/29/11 Adalimumab [Humira] 0 mg SQ ASDIR 09/03/14 levoFLOXacin [Levaquin] 750 mg PO DAILY #7 tab 12/26/17 metroNIDAZOLE [Flagyl -] 500 mg PO BID #14 tablet 12/26/17 predniSONE [Deltasone -] 40 mg PO DAILY #10 tablet 12/26/17 Family Disease History - Family Disease History Family Disease History: Heart Disease: Father () Physical Examination Vital Signs: Vital Signs Temperature 99.4 F 12/23/17 20:05 Pulse Rate 73 12/23/17 20:05 Respiratory Rate 18 12/23/17 20:05 Blood Pressure 135/71 12/23/17 20:05 O2 Sat by Pulse Oximetry (%) 100 12/23/17 18:32 Labs: CBC, BMP 12/23/17 08:47 12/23/17 10:13 Problem List - Problems (1) Abdominal pain Code(s): R10.9 - UNSPECIFIED ABDOMINAL PAIN Qualifiers: Abdominal location: generalized Qualified Code(s): R10.84 - Generalized abdominal pain (2) Small bowel obstruction Code(s): K56.69 - OTHER INTESTINAL OBSTRUCTION * DO NOT USE * (3) Crohn disease Code(s): K50.90 - CROHN'S DISEASE, UNSPECIFIED, WITHOUT COMPLICATIONS Qualifiers: Gastrointestinal tract location: small intestine Digestive disease complication type: with intestinal obstruction Qualified Code(s): K50.012 - Crohn's disease of small intestine with intestinal obstruction
[2017-12-23] MEDS ORDERED: ONDANSETRON 4 MG/2 ML VIAL IVPUSH PRN (23:27)
[2017-12-23] MEDS ORDERED: morphine SULFATE 4 MG/ML VIAL IVPUSH PRN (23:27)
[2017-12-24] MEDS: HYDROCORTISONE SOD SUCCINATE 100 MG/2 ML VIAL IVPB SCH ×3 (01:19→17:03)
[2017-12-24] MEDS: DEXTROSE 5%-LACTATED RINGERS 1,000 ML IV SCH ×3 (05:41→17:04)
[2017-12-24 07:50] LABS: BASO % 0.3 % (0-2.0); HEMATOCRIT 40.4 % (32.4-45.2); HEMOGLOBIN 13.3 GM/dL (10.7-15.3); LYMPH % 15.8 % (8-40); MCH 30.5 pg (25.7-33.7); MCHC 32.9 g/dl (32.0-36.0); MEAN CELL VOLUME 92.5 fl (80-96); MEAN PLT VOLUME 7.9 fl (7.5-11.1); MONO % 3.7 % (3.8-10.2); NEUT % 80.2 % (42.8-82.8); PLATELET COUNT 190 K/MM3 (134-434); RBC 4.36 M/mm3 (3.60-5.2); RDW 13.6 % (11.6-15.6); WHITE BLOOD COUNT 6.5 K/mm3 (4.0-10.0)
[2017-12-24 08:11] LABS: ALK PHOS 54 U/L (45-117); ANION GAP 9 MMOL/L (8-16); BILIRUBIN,TOTAL 0.5 mg/dL (0.2-1); BLOOD UREA NITROGEN 7 mg/dL (7-18); CALCIUM 8.7 mg/dL (8.5-10.1); CHLORIDE 106 mmol/L (98-107); CO2 24 mmol/L (21-32); CREATININE 0.8 mg/dL (0.55-1.3); GLUCOSE,RANDOM 146 mg/dL (74-106); POTASSIUM 3.8 mmol/L (3.5-5.1); SGOT/AST 22 U/L (15-37); SGPT/ALT 29 U/L (13-61); SODIUM 139 mmol/L (136-145)
[2017-12-24] MEDS ORDERED: FLU VACCINE QUAD 60 MCG/0.5 ML (MDV 18-19) IM ONE (09:00)
[2017-12-24] MEDS: HEPARIN NA (PORCINE) 5,000 UNITS/ML 1ML VIAL SQ SCH ×2 (09:43→21:02)
--- NOTE | 2017-12-24 14:08 | CON.ID ---
Consult Consult Specialty:: infectious diseases Referred by:: Reason for Consultation:: sbo,fever - History of Present Illness Chief Complaint: abd pain History of Present Illness: 52 y.o. woman with Crohn's small bowel disease,who developed abdominal pain, associated with nausea and vomiting on thursday according to her .patient came to the hospital and was admitted on thu She has a known h/o of small bowel resection with temporary ileostomy in 2011 and has been on humira patient has been seen by surgery and gastroentrology currently patient is with ng tube and the abd pain has improved denies fever - History Source History Provided By: Patient Limitations to Obtaining History: No Limitations - Past Medical History Gastrointestinal: Yes: Crohn's Disease (s/p partial colectomy and small bowel resection) ...LMP: 09/04/17 Infectious Disease: Yes: Other (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 Temporary ileostomy; ileocolonic anastomosis. - Alcohol/Substance Use Hx Alcohol Use: No History of Substance Use: reports: None - Smoking History Smoking history: Never smoked Have you smoked in the past 12 months: No Aproximately how many cigarettes per day: 0 - Social History Usual Living Arrangement: With Spouse ADL: Independent History of Recent Travel: Yes Home Medications - Allergies Allergies/Adverse Reactions: Allergies Allergy/AdvReac Type Severity Reaction Status Date / Time No Known Drug Allergies Allergy Verified 12/23/17 07:56 - Home Medications Home Medications: Ambulatory Orders Mesalamine [Pentasa] 1,000 mg PO QID 09/29/11 Adalimumab [Humira] 0 mg SQ ASDIR 09/03/14 Family Disease History - Family Disease History Family Disease History: Heart Disease: Father () Review of Systems - Review of Systems Constitutional: reports: No Symptoms Eyes: reports: No Symptoms HENT: reports: No Symptoms Neck: reports: No Symptoms Cardiovascular: reports: No Symptoms Respiratory: reports: No Symptoms Gastrointestinal: reports: Abdominal Pain, Nausea, Vomiting Genitourinary: reports: No Symptoms Integumentary: reports: No Symptoms Neurological: reports: No Symptoms Endocrine: reports: No Symptoms Hematology/Lymphatic: reports: No Symptoms Psychiatric: reports: No Symptoms Physical Exam Vital Signs: Vital Signs Temperature 98.9 F 12/24/17 09:00 Pulse Rate 83 12/24/17 09:00 Respiratory Rate 20 12/24/17 09:00 Blood Pressure 135/75 12/24/17 09:00 O2 Sat by Pulse Oximetry (%) 100 12/23/17 21:00 Constitutional: Yes: Well Nourished, Calm, Obese Eyes: Yes: Conjunctiva Clear Cardiovascular: Yes: Regular Rate and Rhythm Respiratory: Yes: Regular, CTA Bilaterally Gastrointestinal: Yes: Soft, Other (absent bowel sounds ng tube in place) Musculoskeletal: Yes: WNL Extremities: Yes: WNL Neurological: Yes: Alert, Oriented Psychiatric: Yes: Alert, Oriented Labs: CBC, BMP 12/24/17 06:30 12/24/17 06:30 Imaging - Results Chest X-ray: Report Reviewed, Image Reviewed X-ray: Report Reviewed, Image Reviewed Cat Scan: Report Reviewed, Image Reviewed Assessment/Plan Problem List - Problems (1) Abdominal pain Code(s): R10.9 - UNSPECIFIED ABDOMINAL PAIN Qualifiers: Abdominal location: generalized Qualified Code(s): R10.84 - Generalized abdominal pain (2) Nausea Code(s): R11.0 - NAUSEA (3) Small bowel obstruction Code(s): K56.69 - OTHER INTESTINAL OBSTRUCTION * DO NOT USE * (4) Crohn disease Code(s): K50.90 - CROHN'S DISEASE, UNSPECIFIED, WITHOUT COMPLICATIONS Qualifiers: Gastrointestinal tract location: small intestine Digestive disease complication type: with intestinal obstruction Qualified Code(s): K50.012 - Crohn's disease of small intestine with intestinal obstruction in view of patients crohns disease and her history will start patient on empiric abx as she is immunocompromised and on humira also plan will start patient on zosyn will stop levaquin iv fluids rest as per the team
[2017-12-24] MEDS ORDERED: PIPERACILLIN/TAZOBACTAM 3.375 GM VIAL IVPB ONE ×2 (16:20→17:27)
[2017-12-24] MEDS ORDERED: DEXTROSE 5%-WATER - 50 ML IVPB ONE (16:21)
[2017-12-24] MEDS ORDERED: BENZOCAINE/MENTH/CETYLPYRD CL 1 EACH LOZENGE MM PRN (16:38)
[2017-12-24] MEDS: PIPERACILLIN/TAZOB 3.375 GM 3.375 GM in DEXTROSE 5%-WATER - 50 ML IVPB SCH ×2 (17:03→17:04)
--- NOTE | 2017-12-24 17:11 | PN ---
Progress Note, Physician Chief Complaint: partial SBO History of Present Illness: 52 yo female with PMH frequent SBO, Crohn's disease, s/p hemicolectomy, and pancreatitis who presents to the ED for evaluation of abdominal pain and emesis. Her abdominal pain is improved today. She is passing flatus but no BM reported. She complained about the NGT. - Current Medication List Current Medications: Active Medications Benzocaine/Butamben/Tetracaine HCl (Cetacaine [place] -) 1 spray TP DAILY [facility] Benzocaine/Menthol (Cepacol Lozenge -) 1 each MM PRN PRN PRN Reason: SORE THROAT Heparin Sodium (Porcine) (Heparin -) 5,000 unit SQ BID [facility] Last Admin: 12/24/17 09:43 Dose: 5,000 unit Hydrocortisone Sodium Succinate (Solu-Cortef -) 100 mg IVPB Q8H-IV [facility] Last Admin: 12/24/17 17:03 Dose: 100 mg Dextrose/Lactated Ringer's (D5-Lr -) 1,000 mls @ 125 mls/hr IV ASDIR [facility] Last Admin: 12/24/17 17:04 Dose: Not Given Piperacillin Sod/Tazobactam (Sod 3.375 gm/ Dextrose) 50 mls @ 100 mls/hr IVPB Q8H-IV [facility]; Protocol Last Admin: 12/24/17 17:04 Dose: Not Given Morphine Sulfate (Morphine Sulfate) 4 mg IVPUSH Q6H PRN PRN Reason: PAIN LEVEL 6-10 Ondansetron HCl (Zofran Injection) 4 mg IVPUSH Q6H PRN PRN Reason: NAUSEA AND/OR VOMITING - Objective Vital Signs: Vital Signs Temperature 99 F 12/24/17 15:10 Pulse Rate 73 12/24/17 15:10 Respiratory Rate 19 12/24/17 15:10 Blood Pressure 130/77 12/24/17 15:10 O2 Sat by Pulse Oximetry (%) 100 12/23/17 21:00 Constitutional: Yes: No Distress, Calm, Obese Eyes: Yes: Conjunctiva Clear, EOM Intact HENT: Yes: Atraumatic, Normocephalic Neck: Yes: Supple, Trachea Midline Cardiovascular: Yes: Regular Rate and Rhythm, S1, S2 Respiratory: Yes: Regular, CTA Bilaterally Gastrointestinal: Yes: Normal Bowel Sounds, Soft, Abdomen, Obese, Tenderness ( RUQ an RLQ). No: Tenderness, Rebound ...Rectal Exam: Yes: Deferred Genitourinary: No: CVA Tenderness - Left, CVA Tenderness - Right Musculoskeletal: No: Muscle Pain, Muscle Weakness Extremities: No: Cool, Cyanosis Edema: No Peripheral Pulses WNL: Yes Integumentary: No: Jaundice, Pressure Ulcer, Rash Neurological: Yes: Alert, Oriented Psychiatric: Yes: Alert, Oriented Labs: CBC, BMP 12/24/17 06:30 12/24/17 06:30 INR, PTT INR 0.95 (0.83-1.09) 12/23/17 08:47 Problem List - Problems (1) Abdominal pain Assessment/Plan: 52yo female with Chrons on Humira, strictureing causing an SBO. May eventailly require stricturoplasty or resection. No acute surgical intervention at this time. Agree with GI's plan. Abdominal Xray to follow contrast Discontinue NGT NPO for now, will advance in AM Continue Steroids and IV antibiotics Will follow Code(s): R10.9 - UNSPECIFIED ABDOMINAL PAIN Qualifiers: Abdominal location: generalized Qualified Code(s): R10.84 - Generalized abdominal pain (2) Nausea Code(s): R11.0 - NAUSEA (3) Small bowel obstruction Code(s): K56.69 - OTHER INTESTINAL OBSTRUCTION * DO NOT USE * (4) Crohn disease Code(s): K50.90 - CROHN'S DISEASE, UNSPECIFIED, WITHOUT COMPLICATIONS Qualifiers: Gastrointestinal tract location: small intestine Digestive disease complication type: with intestinal obstruction Qualified Code(s): K50.012 - Crohn's disease of small intestine with intestinal obstruction
--- NOTE | 2017-12-24 18:38 | PN ---
Progress Note (short form) - Note Progress Note: Pt much improved today. No pain. Passing flatus, no BM yet. Abd film -> resolution of SBO. Case d/w Dr Moore earlier -- NG tube removed. Will continue IV steroids. Change to p.o. Cipro and metronidazole. Begin full liquid diet in a.m. If diet tolerated -> change to oral steroids on Thursday, possible discharge Thursday. Problem List - Problems (1) Crohn disease Code(s): K50.90 - CROHN'S DISEASE, UNSPECIFIED, WITHOUT COMPLICATIONS Qualifiers: Gastrointestinal tract location: small intestine Digestive disease complication type: with intestinal obstruction Qualified Code(s): K50.012 - Crohn's disease of small intestine with intestinal obstruction
[2017-12-24] MEDS: TETRACAINE/BENZOCAINE/BUTAMBEN 20 GM SPR TP SCH (19:01)
[2017-12-24] MEDS: metroNIDAZOLE 250 MG TABLET PO SCH (21:02)
--- NOTE | 2017-12-24 21:42 | PN ---
Progress Note, Physician - Current Medication List Current Medications: Active Medications Benzocaine/Butamben/Tetracaine HCl (Cetacaine [place] -) 1 spray TP DAILY [facility] Last Admin: 12/24/17 19:01 Dose: Not Given Benzocaine/Menthol (Cepacol Lozenge -) 1 each MM PRN PRN PRN Reason: SORE THROAT Heparin Sodium (Porcine) (Heparin -) 5,000 unit SQ BID [facility] Last Admin: 12/24/17 21:02 Dose: 5,000 unit Hydrocortisone Sodium Succinate (Solu-Cortef -) 100 mg IVPB Q8H-IV [facility] Last Admin: 12/24/17 17:03 Dose: 100 mg Dextrose/Lactated Ringer's (D5-Lr -) 1,000 mls @ 125 mls/hr IV ASDIR [facility] Last Admin: 12/24/17 17:04 Dose: Not Given Levofloxacin (Levaquin) 750 mg PO DAILY [facility] Metronidazole (Flagyl -) 500 mg PO BID [facility] Last Admin: 12/24/17 21:02 Dose: 500 mg Morphine Sulfate (Morphine Sulfate) 4 mg IVPUSH Q6H PRN PRN Reason: PAIN LEVEL 6-10 - Objective Vital Signs: Vital Signs Temperature 98.7 F 12/24/17 18:00 Pulse Rate 70 12/24/17 18:00 Respiratory Rate 20 12/24/17 18:00 Blood Pressure 125/70 12/24/17 18:00 O2 Sat by Pulse Oximetry (%) 100 12/23/17 21:00 Labs: CBC, BMP 12/24/17 06:30 12/24/17 06:30 INR, PTT INR 0.95 (0.83-1.09) 12/23/17 08:47
[2017-12-25] MEDS: DEXTROSE 5%-LACTATED RINGERS 1,000 ML IV SCH ×4 (00:28→18:49)
[2017-12-25] MEDS: HYDROCORTISONE SOD SUCCINATE 100 MG/2 ML VIAL IVPB SCH ×3 (01:49→17:36)
[2017-12-25] MEDS ORDERED: PT OWN MED DRAWER 7, Y5N ONE (09:33)
[2017-12-25] MEDS: HEPARIN NA (PORCINE) 5,000 UNITS/ML 1ML VIAL SQ SCH ×2 (09:59→21:30)
[2017-12-25] MEDS: metroNIDAZOLE 250 MG TABLET PO SCH ×2 (09:59→21:30)
[2017-12-25] MEDS: levoFLOXacin 750 MG TABLET PO SCH (09:59)
[2017-12-25] MEDS: TETRACAINE/BENZOCAINE/BUTAMBEN 20 GM SPR TP SCH (09:59)
--- NOTE | 2017-12-25 11:00 | PN ---
Progress Note, Physician History of Present Illness: stable no complaints started on oral liquid diet \tolerating it - Current Medication List Current Medications: Active Medications Benzocaine/Butamben/Tetracaine HCl (Cetacaine [place] -) 1 spray TP DAILY [facility] Last Admin: 12/25/17 09:59 Dose: Not Given Benzocaine/Menthol (Cepacol Lozenge -) 1 each MM PRN PRN PRN Reason: SORE THROAT Heparin Sodium (Porcine) (Heparin -) 5,000 unit SQ BID [facility] Last Admin: 12/25/17 09:59 Dose: 5,000 unit Hydrocortisone Sodium Succinate (Solu-Cortef -) 100 mg IVPB Q8H-IV [facility] Last Admin: 12/25/17 09:59 Dose: 100 mg Dextrose/Lactated Ringer's (D5-Lr -) 1,000 mls @ 125 mls/hr IV ASDIR [facility] Last Admin: 12/25/17 09:59 Dose: 125 mls/hr Levofloxacin (Levaquin) 750 mg PO DAILY [facility] Last Admin: 12/25/17 09:59 Dose: 750 mg Metronidazole (Flagyl -) 500 mg PO BID [facility] Last Admin: 12/25/17 09:59 Dose: 500 mg Morphine Sulfate (Morphine Sulfate) 4 mg IVPUSH Q6H PRN PRN Reason: PAIN LEVEL 6-10 - Objective Vital Signs: Vital Signs Temperature 99.2 F 12/25/17 06:45 Pulse Rate 68 12/25/17 06:45 Respiratory Rate 20 12/25/17 06:45 Blood Pressure 135/72 12/25/17 06:45 O2 Sat by Pulse Oximetry (%) 97 12/24/17 21:00 Constitutional: Yes: No Distress, Calm Cardiovascular: Yes: Regular Rate and Rhythm Respiratory: Yes: Regular, CTA Bilaterally Gastrointestinal: Yes: Normal Bowel Sounds, Soft Musculoskeletal: Yes: WNL Extremities: Yes: WNL Neurological: Yes: Alert, Oriented Psychiatric: Yes: Alert, Oriented Labs: CBC, BMP 12/24/17 06:30 12/24/17 06:30 INR, PTT INR 0.95 (0.83-1.09) 12/23/17 08:47 Assessment/Plan Problem List - Problems (1) Abdominal pain Code(s): R10.9 - UNSPECIFIED ABDOMINAL PAIN Qualifiers: Abdominal location: generalized Qualified Code(s): R10.84 - Generalized abdominal pain (2) Nausea Code(s): R11.0 - NAUSEA (3) Small bowel obstruction Code(s): K56.69 - OTHER INTESTINAL OBSTRUCTION * DO NOT USE * (4) Crohn disease Code(s): K50.90 - CROHN'S DISEASE, UNSPECIFIED, WITHOUT COMPLICATIONS Qualifiers: Gastrointestinal tract location: small intestine Digestive disease complication type: with intestinal obstruction Qualified Code(s): K50.012 - Crohn's disease of small intestine with intestinal obstruction plan patient stable will change to oral abx and monito rest as per surgical team
[2017-12-25 12:49] VITALS: BMI 36.9
--- NOTE | 2017-12-25 14:29 | PN ---
Progress Note, Physician Chief Complaint: partial SBO History of Present Illness: 52 yo female with PMH frequent SBO, Crohn's disease, s/p hemicolectomy, and pancreatitis who presents to the ED for evaluation of abdominal pain and emesis. Her abdominal pain is improved today. She is passing flatus but no BM reported. She complained about the NGT. - Current Medication List Current Medications: Active Medications Benzocaine/Butamben/Tetracaine HCl (Cetacaine [place] -) 1 spray TP DAILY [facility] Last Admin: 12/25/17 09:59 Dose: Not Given Benzocaine/Menthol (Cepacol Lozenge -) 1 each MM PRN PRN PRN Reason: SORE THROAT Heparin Sodium (Porcine) (Heparin -) 5,000 unit SQ BID [facility] Last Admin: 12/25/17 09:59 Dose: 5,000 unit Hydrocortisone Sodium Succinate (Solu-Cortef -) 100 mg IVPB Q8H-IV [facility] Last Admin: 12/25/17 09:59 Dose: 100 mg Dextrose/Lactated Ringer's (D5-Lr -) 1,000 mls @ 125 mls/hr IV ASDIR [facility] Last Admin: 12/25/17 09:59 Dose: 125 mls/hr Levofloxacin (Levaquin) 750 mg PO DAILY [facility] Last Admin: 12/25/17 09:59 Dose: 750 mg Metronidazole (Flagyl -) 500 mg PO BID [facility] Last Admin: 12/25/17 09:59 Dose: 500 mg Morphine Sulfate (Morphine Sulfate) 4 mg IVPUSH Q6H PRN PRN Reason: PAIN LEVEL 6-10 - Objective Vital Signs: Vital Signs Temperature 98.9 F 12/25/17 10:00 Pulse Rate 68 12/25/17 10:00 Respiratory Rate 18 12/25/17 10:00 Blood Pressure 123/71 12/25/17 10:00 O2 Sat by Pulse Oximetry (%) 98 12/25/17 09:00 Vital Signs Period Temp Pulse Resp BP Sys/Hall Pulse Ox Last 24 Hr 98.5 F-99.2 F 68-73 18-20 123-137/70-77 97-98 Intake & Output 12/24/17 12/25/17 12/25/17 23:59 07:59 15:59 Intake Total 1080 1500 Output Total 202 1 Balance 878 1499 Weight 222 lb Intake: IV 880 1500 D5-Lr - 1,000 ml @ 085 347 2720 mls/hr IV ASDIR [facility] Rx#: [id number] IVPB 200 Output: Gastric Drainage 200 Urine 2 1 Void 2 1 Other: Voiding Method Toilet Toilet Bowel Movement Yes No # Bowel Movements 1 Height 5 ft 5 in Body Mass Index (BMI) 36.9 Constitutional: Yes: Well Nourished, No Distress, Calm, Obese Eyes: Yes: Conjunctiva Clear, EOM Intact HENT: Yes: Atraumatic, Normocephalic Neck: Yes: Supple, Trachea Midline Cardiovascular: Yes: Regular Rate and Rhythm, S1, S2 Respiratory: Yes: Regular, CTA Bilaterally Gastrointestinal: Yes: Normal Bowel Sounds, Soft, Abdomen, Obese. No: Distention, Tenderness, Tenderness, Epigastrium, Tenderness, Rebound, Vomiting ...Rectal Exam: Yes: Deferred Genitourinary: No: CVA Tenderness - Left, CVA Tenderness - Right Musculoskeletal: No: Muscle Pain, Muscle Weakness Extremities: No: Cool, Cyanosis Edema: No Peripheral Pulses WNL: Yes Peripheral Pulses: Left Radial: 2+, Right Radial: 2+, Left Doralis Pedis: 2+, Right Dorsalis Pedis: 2+ Integumentary: No: Jaundice, Rash, Skin Tear, Tattoos Neurological: Yes: Alert, Oriented Psychiatric: Yes: Alert, Oriented Labs: CBC, BMP 12/24/17 06:30 12/24/17 06:30 INR, PTT INR 0.95 (0.83-1.09) 12/23/17 08:47 Problem List - Problems (1) Abdominal pain Assessment/Plan: 52yo female with Chrons on Humira, strictureing causing an SBO. May eventailly require stricturoplasty or resection. No acute surgical intervention at this time. Agree with GI's plan. Abdominal Xray to follow contrast Discontinue NGT Regular diet in Am Continue Steroids and IV antibiotics Will follow Code(s): R10.9 - UNSPECIFIED ABDOMINAL PAIN Qualifiers: Abdominal location: generalized Qualified Code(s): R10.84 - Generalized abdominal pain (2) Nausea Code(s): R11.0 - NAUSEA (3) Small bowel obstruction Code(s): K56.69 - OTHER INTESTINAL OBSTRUCTION * DO NOT USE * (4) Crohn disease Code(s): K50.90 - CROHN'S DISEASE, UNSPECIFIED, WITHOUT COMPLICATIONS Qualifiers: Gastrointestinal tract location: small intestine Digestive disease complication type: with intestinal obstruction Qualified Code(s): K50.012 - Crohn's disease of small intestine with intestinal obstruction
--- NOTE | 2017-12-25 16:14 | PN ---
GI Progress Note Subjective: GI NOte: Feeling much better. Had BM last night. Tolerated liquids. Advanced to regular diet by Dr Moore. I discussed the case with him and agree. - Objective Vital Signs: Vital Signs Temperature 98.6 F 12/25/17 14:31 Pulse Rate 78 12/25/17 14:31 Respiratory Rate 17 12/25/17 14:31 Blood Pressure 118/61 12/25/17 14:31 O2 Sat by Pulse Oximetry (%) 98 12/25/17 09:00 Laboratory Tests 12/24/17 12/24/17 06:30 06:30 WBC 6.5 Albumin 3.0 L Constitutional: Calm Gastrointestinal Inspection: Yes: Distention ...Palpate: Yes: Soft, Other (nontender) ...Percussion: Yes: Tympanitic Labs: CBC, BMP 12/24/17 06:30 12/24/17 06:30 INR, PTT INR 0.95 (0.83-1.09) 12/23/17 08:47 Problem List - Problems (1) Small bowel obstruction Assessment/Plan: SBP appears to be resolving. I will decrease SoluCortef to 50mg IVPB q8h. Will switch to oral prednisone 40mg tomorrow. If diet is tolerated can consider discharge with followup with Dr Appiah. Dr. Wall will be covering this weekend. Code(s): K56.69 - OTHER INTESTINAL OBSTRUCTION * DO NOT USE * (2) Abdominal pain Code(s): R10.9 - UNSPECIFIED ABDOMINAL PAIN Qualifiers: Abdominal location: generalized Qualified Code(s): R10.84 - Generalized abdominal pain (3) Crohn disease Code(s): K50.90 - CROHN'S DISEASE, UNSPECIFIED, WITHOUT COMPLICATIONS Qualifiers: Gastrointestinal tract location: small intestine Digestive disease complication type: with intestinal obstruction Qualified Code(s): K50.012 - Crohn's disease of small intestine with intestinal obstruction (4) History of resection of small bowel Code(s): Z90.49 - ACQUIRED ABSENCE OF OTHER SPECIFIED PARTS OF DIGESTIVE TRACT
--- NOTE | 2017-12-25 23:33 | PN ---
Progress Note, Physician - Current Medication List Current Medications: Active Medications Benzocaine/Butamben/Tetracaine HCl (Cetacaine [place] -) 1 spray TP DAILY [facility] Last Admin: 12/25/17 09:59 Dose: Not Given Benzocaine/Menthol (Cepacol Lozenge -) 1 each MM PRN PRN PRN Reason: SORE THROAT Heparin Sodium (Porcine) (Heparin -) 5,000 unit SQ BID [facility] Last Admin: 12/25/17 21:30 Dose: 5,000 unit Hydrocortisone Sodium Succinate (Solu-Cortef -) 50 mg IVPB Q8H-IV [facility] Stop: 12/26/17 16:29 Last Admin: 12/25/17 17:36 Dose: 50 mg Dextrose/Lactated Ringer's (D5-Lr -) 1,000 mls @ 125 mls/hr IV ASDIR [facility] Last Admin: 12/25/17 18:49 Dose: 125 mls/hr Levofloxacin (Levaquin) 750 mg PO DAILY [facility] Last Admin: 12/25/17 09:59 Dose: 750 mg Metronidazole (Flagyl -) 500 mg PO BID [facility] Last Admin: 12/25/17 21:30 Dose: 500 mg Prednisone (Deltasone -) 40 mg PO DAILY [facility] - Objective Vital Signs: Vital Signs Temperature 99.1 F 12/25/17 17:25 Pulse Rate 66 12/25/17 17:25 Respiratory Rate 18 12/25/17 17:25 Blood Pressure 122/65 12/25/17 17:25 O2 Sat by Pulse Oximetry (%) 98 12/25/17 09:00 Labs: CBC, BMP 12/24/17 06:30 12/24/17 06:30 INR, PTT INR 0.95 (0.83-1.09) 12/23/17 08:47
[2017-12-26] MEDS: HYDROCORTISONE SOD SUCCINATE 100 MG/2 ML VIAL IVPB SCH ×2 (02:53→10:33)
[2017-12-26] MEDS: DEXTROSE 5%-LACTATED RINGERS 1,000 ML IV SCH (05:34)
[2017-12-26 07:45] LABS: BASO % 0.3 % (0-2.0); EOS % 0.1 % (0-4.5); HEMATOCRIT 36.2 % (32.4-45.2); HEMOGLOBIN 12.2 GM/dL (10.7-15.3); LYMPH % 20.6 % (8-40); MCH 31.2 pg (25.7-33.7); MCHC 33.5 g/dl (32.0-36.0); MEAN PLT VOLUME 8.3 fl (7.5-11.1); MONO % 6.4 % (3.8-10.2); NEUT % 72.6 % (42.8-82.8); PLATELET COUNT 162 K/MM3 (134-434); RDW 13.4 % (11.6-15.6)
[2017-12-26 08:40] LABS: ANION GAP 6 MMOL/L (8-16); BLOOD UREA NITROGEN 9 mg/dL (7-18); CALCIUM 8.4 mg/dL (8.5-10.1); CHLORIDE 107 mmol/L (98-107); CO2 28 mmol/L (21-32); CREATININE 0.7 mg/dL (0.55-1.3); GLUCOSE,RANDOM 109 mg/dL (74-106); POTASSIUM 3.6 mmol/L (3.5-5.1); SODIUM 142 mmol/L (136-145)
[2017-12-26] MEDS ORDERED: predniSONE 20 MG TABLET (UD) PO SCH (10:00)
[2017-12-26] MEDS ORDERED: PT OWN MED DRAWER 7, Y5N ONE (10:31)
[2017-12-26] MEDS: levoFLOXacin 750 MG TABLET PO SCH (10:34)
[2017-12-26] MEDS: TETRACAINE/BENZOCAINE/BUTAMBEN 20 GM SPR TP SCH ×2 (10:34→10:41)
[2017-12-26] MEDS: HEPARIN NA (PORCINE) 5,000 UNITS/ML 1ML VIAL SQ SCH (10:34)
[2017-12-26] MEDS: metroNIDAZOLE 250 MG TABLET PO SCH (10:34)
[2017-12-26 12:22] VITALS: BP 124/65; PULSE 62; TEMP 99.4
== END 2017-12-26 13:19 | disposition home or self-care (01) | DRG 387 ==
LOC: JER 06:39 → JERBED 16:28 → J8W 19:59
PROVIDERS: ADMIT Internal Medicine; ATTEND Internal Medicine
DX: K50.012 Crohn's disease of small intestine with intestinal obstruction (principal); E66.9 Obesity, unspecified; K50.90 Crohn's disease, unspecified, without complications; Z68.36 Body mass index [BMI] 36.0-36.9, adult; R11.0 Nausea
CPT/HCPCS: 36415; 71045-TC-FY; 74019-TC-FY; 74177-TC; 80048; 80053; 81003; 83605; 83690; 85025; 85610; 86140; 86671; 86850; 86900; 86901; 90688; 99283-25; G0008; J1644; Q9967

== ENCOUNTER 2018-10-05 08:56 | Emergency (ER) | payer OTHER ==
[2018-10-05 09:04] VITALS: BP 146/78; PULSE 64; TEMP 98.5; BMI 34.2
[2018-10-05] MEDS ORDERED: ACETAMINOPHEN 325 MG TABLET (FP) PO ONE (09:36)
[2018-10-05] MEDS ORDERED: ACETAMINOPHEN 325 MG TABLET (FP) ONE (09:38)
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
== END 2018-10-05 09:38 | disposition home or self-care (01) ==
LOC: JERFT 08:56
DX: S00.83XA Contusion of other part of head, initial encounter (principal); Y04.2XXA Assault by strike against or bumped into by another person, initial encounter; Y93.89 Activity, other specified; Y92.198 Other place in other specified residential institution as the place of occurrence of the external cause; Y99.0 Civilian activity done for income or pay
CPT/HCPCS: 99281-25

== ENCOUNTER 2019-01-20 18:02 | Emergency (ER) | payer OTHER ==
[2019-01-20 18:06] VITALS: BP 146/81; TEMP 98.4; BMI 35.2
--- NOTE | 2019-01-20 18:07 | PDOC ---
Rapid Medical Evaluation Chief Complaint: Pain Time Seen by Provider: 01/20/19 18:04 Medical Evaluation: Allergies Allergy/AdvReac Type Severity Reaction Status Date / Time No Known Drug Allergies Allergy Verified 10/05/18 09:01 01/20/19 18:05 I have performed a brief in-person evaluation of this patient. The patient presents with a chief complaint of:abd pain started at 4- + hx of Chrons and thinks is flare Pertinent physical exam findings: no fever/ ABD soft / no guarding I have ordered the following: Ua/cx The patient will proceed to the ED for further evaluation.
[2019-01-20] MEDS ORDERED: ACETAMINOPHEN 1000 MG/100 ML VIAL (NON FORMULARY) IVPB ONE (18:57)
[2019-01-20] MEDS ORDERED: SODIUM CHLORIDE 1,000 ML IV STA (18:57)
--- NOTE | 2019-01-20 19:01 | PDOC ---
Attending Attestation - Resident Resident Name: Karsten Petty - ED Attending Attestation I have performed the following: I have examined & evaluated the patient, The case was reviewed & discussed with the resident, I agree w/resident's findings & plan, Exceptions are as noted - HPI HPI: 01/20/19 19:21 53y F hx of crohns on humira cb multiple bouts of obstruction s/p ileostomy reversal presents with complaint of sudden onset of abdominal pain approx 2 hrs ago - pt states it was sharp, in the lower abdomen, without associated n/v, fever/chills. pt had a BM just after the pain started. pt notes pain feel similar to previous episodes of obstruction. Physical exam GENERAL: The patient is awake, alert, and fully oriented, Nontoxic - in no acute distress. HEAD: Normocephalic, atraumatic. EYES: extraocular movements intact, sclera anicteric, conjunctiva clear. ENT: Normal voice, Moist mucous membranes. NECK: Normal range of motion, supple LUNGS: Breath sounds equal, clear to auscultation bilaterally. No wheezes, no rhonchi, no rales. HEART: Regular rate and rhythm, normal S1 and S2 without murmur, rub or gallop. ABDOMEN: Mild diffuse lower abdominal tenderness no rebound or guarding EXTREMITIES: Normal range of motion, no edema. NEUROLOGICAL: No facial assymetry, Normal speech, PSYCH: Normal mood, normal affect. SKIN: Warm, Dry, normal turgor, Differential for the patient's symptoms includes possible obstruction, kidney stones, UTI Will obtain blood work, CT of the abdomen will reassess - Medical Decision Making 01/20/19 19:01 53y F hx of crohns on humeria presents with sharp lower abd pain 01/21/19 00:18 ct neg for acute process pts pain improved tlerating oral intake will dc with pmd fu return precauions were discussed
--- NOTE | 2019-01-20 19:49 | PDOC ---
History of Present Illness - General Chief Complaint: Pain Stated Complaint: ABD PAIN Time Seen by Provider: 01/20/19 18:04 History Source: Patient Exam Limitations: No Limitations - History of Present Illness Initial Comments: 01/20/19 19:06 53 yo F with a hx of Crohn's disease (currently on chris and pentasa) presents to the emergency department with lower abdominal pain. Per the patient, she stated approximately 1 hour prior to presentation. She states it is located in the midline lower abdomen, cramping like sensation, initially 10/10 (now 5/10), non radiating, with no aggravating or relieving factors. She denies this feels like her previous flares. Per the patient, she states her pain reduced when she took her pentasa. Endorses having a BM prior to arrival. Denies the following: fever, chills, nausea, vomiting, chest pain, SOB, dysuria, hematuria, diarrhea, hematochezia, melena, and leg pain/swelling. Allergies: NKDA Social: Denies tobacco, alcohol, and substance abuse. Past History - Past Medical History Allergies/Adverse Reactions: Allergies Allergy/AdvReac Type Severity Reaction Status Date / Time No Known Drug Allergies Allergy Verified 01/20/19 18:07 Home Medications: Ambulatory Orders Mesalamine [Pentasa] 1,000 mg PO QID 09/29/11 Adalimumab [Humira] 0 mg SQ ASDIR 09/03/14 predniSONE [Deltasone -] 40 mg PO DAILY #10 tablet 12/26/17 Anemia: No Asthma: No Cancer: No Cardiac Disorders: No CVA: No COPD: No CHF: No Dementia: No Diabetes: No GI Disorders: Yes (crohn's disease) Disorders: No HTN: No Hypercholesterolemia: No Liver Disease: No Seizures: No Thyroid Disease: No - Surgical History Abdominal Surgery: Yes (ILEOSTOMY 05/2011, with reversal,small bowel resection 2011) Appendectomy: No Cardiac Surgery: No Cholecystectomy: No Lung Surgery: No Neurologic Surgery: No Orthopedic Surgery: No - Immunization History Immunization Up to Date: Yes - Psycho Social/Smoking Cessation Hx Smoking Status: No Smoking History: Never smoked Have you smoked in the past 12 months: No Number of Cigarettes Smoked Daily: 0 Hx Alcohol Use: No Drug/Substance Use Hx: No Substance Use Type: None Hx Substance Use Treatment: No Review of Systems - Review of Systems Able to Perform ROS?: Yes Is the patient limited Persian proficient: No Constitutional: No: Chills, Diaphoresis, Fever, Weakness HEENTM: No: Eye Pain, Ear Pain, Nose Pain, Throat Pain, Mouth Pain Respiratory: No: Cough, Shortness of Breath, Hemoptysis Cardiac (ROS): No: Chest Pain, Lightheadedness, Palpitations, Syncope ABD/GI: Yes: Abdominal cramping. No: Constipated, Diarrhea, Nausea, Rectal Bleeding, Vomiting, Tarry Stools : No: Burning, Dysuria, Hematuria Musculoskeletal: No: Back Pain, Joint Pain, Neck Pain Integumentary: No: Bruising, Erythema, Rash Neurological: No: Headache, Numbness, Tingling, Tremors Psychiatric: No: Change in Appetite Endocrine: No: Unexplained Weight Gain Hematologic/Lymphatic: No: Anemia *Physical Exam - Vital Signs Last Vital Signs Temp Pulse Resp BP Pulse Ox 98.4 F 75 18 146/81 100 01/20/19 18:03 01/20/19 18:03 01/20/19 18:03 01/20/19 18:03 01/20/19 18:03 - Physical Exam General Appearance: Yes: Nourished, Appropriately Dressed. No: Apparent Distress, Intoxicated HEENT: positive: EOMI, JAYLENE, Normal Voice, Symmetrical, Pharynx Normal, Hearing Grossly Normal. negative: Pale Conjunctivae, Scleral Icterus (R), Scleral Icterus (L), Muffled/Hoarse voice, Pharyngeal Erythema, Tonsillar Exudate, Tonsillar Erythema, Excessive drooling Neck: positive: Trachea midline, Supple. negative: Tender, Lymphadenopathy (R) , Lymphadenopathy (L), Tender lateral, Tender midline Respiratory/Chest: positive: Lungs Clear, Normal Breath Sounds. negative: Chest Tender, Respiratory Distress, Accessory Muscle Use Cardiovascular: positive: Regular Rhythm, Regular Rate, S1, S2. negative: Systolic Murmur Gastrointestinal/Abdominal: positive: Normal Bowel Sounds, Tender (lower midline abdominal area. RLQ tenderness. ), Flat, Soft Lymphatic: negative: Adenopathy Musculoskeletal: positive: Normal Inspection. negative: CVA Tenderness, Vertebral Tenderness Extremity: positive: Normal Capillary Refill, Normal Inspection, Normal Range of Motion. negative: Tender, Swelling, Calf Tenderness Integumentary: positive: Normal Color, Dry, Warm. negative: Swelling, Ecchymosis Neurologic: positive: check embosser II-XII NML intact, Fully Oriented, Alert, Normal Mood/ Affect, Normal Response, Motor Strength / ED Treatment Course - LABORATORY CBC & Chemistry Diagram: 01/20/19 17:56 01/20/19 17:56 - RADIOLOGY Radiology Studies Ordered: Category Date Time Status ABDOMEN & PELVIS CT WITH CONTR [CT] Stat CT Scan 01/20/19 18:57 Ordered Medical Decision Making - Medical Decision Making 01/21/19 00:00 53 yo F with a hx of Crohn's disease (currently on chris and pentasa) presents to the emergency department with lower abdominal pain. Initial vitals: Initial Vital Signs Temp Pulse Resp BP Pulse Ox 98.4 F 75 18 146/81 100 01/20/19 18:03 01/20/19 18:03 01/20/19 18:03 01/20/19 18:03 01/20/19 18:03 Work up: ddx: rule out obstruction vs appendicitis vs colitis because of anastomy, will need oral contrast with CT abdomen r/o UTI Laboratory Tests 01/20/19 01/20/19 01/20/19 17:56 17:56 17:56 WBC 7.7 RBC 4.39 Hgb 13.7 Hct 41.0 MCV 93.5 MCH 31.1 MCHC 33.3 RDW 13.9 Plt Count 209 D MPV 8.7 Absolute Neuts (auto) 4.1 Neutrophils % 52.9 D Lymphocytes % 39.5 D Monocytes % 5.5 Eosinophils % 1.5 D Basophils % 0.6 Nucleated RBC % 0 Sodium 139 Potassium 5.0 Chloride 107 Carbon Dioxide 26 Anion Gap 7 L BUN 10.4 Creatinine 0.8 Est GFR (CKD-EPI)AfAm 96.87 Est GFR (CKD-EPI)NonAf 83.58 Random Glucose 94 Lactic Acid 1.5 Calcium 8.9 Total Bilirubin 0.3 AST 24 ALT 26 Alkaline Phosphatase 64 Total Protein 7.1 Albumin 3.3 L Urine Color Urine Appearance Urine pH Ur Specific [place] Urine Protein Urine Glucose (UA) Urine Ketones Urine Blood Urine Nitrite Urine Bilirubin Urine Urobilinogen Ur Leukocyte Esterase Urine WBC (Auto) Urine RBC (Auto) Urine Casts (Auto) U Epithel Cells (Auto) Urine Bacteria (Auto) 01/20/19 19:56 WBC RBC Hgb Hct MCV MCH MCHC RDW Plt Count MPV Absolute Neuts (auto) Neutrophils % Lymphocytes % Monocytes % Eosinophils % Basophils % Nucleated RBC % Sodium Potassium Chloride Carbon Dioxide Anion Gap BUN Creatinine Est GFR (CKD-EPI)AfAm Est GFR (CKD-EPI)NonAf Random Glucose Lactic Acid Calcium Total Bilirubin AST ALT Alkaline Phosphatase Total Protein Albumin Urine Color Yellow Urine Appearance Clear Urine pH 6.0 Ur Specific [place] 1.007 L Urine Protein Negative Urine Glucose (UA) Negative Urine Ketones Negative Urine Blood Trace Urine Nitrite Negative Urine Bilirubin Negative Urine Urobilinogen 0.2 Ur Leukocyte Esterase Negative Urine WBC (Auto) 0 Urine RBC (Auto) 1 Urine Casts (Auto) 0 U Epithel Cells (Auto) 0.1 Urine Bacteria (Auto) 10.5 labs within normal limits CT abdomen shows no acute pathology. per radiology on phone, no signs of appendicitis were noted Pain has significantly reduced. Will discharge patient. She is able to tolerate PO. Dispo: Discharge Discharge - Discharge Information Problems reviewed: Yes Clinical Impression/Diagnosis: Abdominal pain Disposition: HOME - Admission No - Follow up/Referral Referrals: Chago Dawson MD [Primary Care Provider] - - Patient Discharge Instructions Patient Printed Discharge Instructions: DI for Abdominal Pain-Adult Additional Instructions: You were seen in the emergency department for the evaluation of your abdominal pain. Your lab work was within normal limits. Your imaging was within normal limits. Please follow up with your primary medical doctor within 1 week after discharge for follow up care and management. Please return to the emergency department if you have worsening symptoms or new concerning symptoms. Thank you. - Post Discharge Activity Work/Back to School Note: Back to Work
[2019-01-20 20:11] LABS: BASO % 0.6 % (0-2.0); EOS % 1.5 % (0-4.5); HEMOGLOBIN 13.7 GM/dL (10.7-15.3); LYMPH % 39.5 % (8-40); MCH 31.1 pg (25.7-33.7); MCHC 33.3 g/dl (32.0-36.0); MEAN CELL VOLUME 93.5 fl (80-96); MEAN PLT VOLUME 8.7 fl (7.5-11.1); MONO % 5.5 % (3.8-10.2); NEUT % 52.9 % (42.8-82.8); PLATELET COUNT 209 K/MM3 (134-434); RBC 4.39 M/mm3 (3.60-5.2); RDW 13.9 % (11.6-15.6); WHITE BLOOD COUNT 7.7 K/mm3 (4.0-10.0)
[2019-01-20 20:26] LABS: EPI CELLS 0.1 /HPF (0-5/HPF); HYALINE CASTS 0 /lpf (0-8); URINE APPEARANCE CLEAR; URINE BACTERIA 10.5 /hpf (NEGATIVE); URINE BILIRUBIN NEGATIVE (NEGATIVE); URINE COLOR YELLOW; URINE GLUCOSE (UA) NEGATIVE (NEGATIVE); URINE KETONE NEGATIVE (NEGATIVE); URINE LEUK ESTERASE NEGATIVE (NEGATIVE); URINE NITRITE NEGATIVE (NEGATIVE); URINE PROTEIN NEGATIVE (NEGATIVE); URINE RBC 1 /hpf (0-4); URINE UROBILINOGEN 0.2 mg/dL (0.2-1.0); URINE WBC 0 /hpf (0-5)
[2019-01-20 20:42] LABS: ALBUMIN 3.3 g/dl (3.4-5.0); BILIRUBIN,TOTAL 0.3 mg/dL (0.2-1); BLOOD UREA NITROGEN 10.4 mg/dL (7-18); CALCIUM 8.9 mg/dL (8.5-10.1); CREATININE 0.8 mg/dL (0.55-1.3); TOT PROT 7.1 g/dl (6.4-8.2)
[2019-01-21 00:14] VITALS: PULSE 88
== END 2019-01-21 00:14 | disposition home or self-care (01) ==
LOC: JER 18:02
PROC: 3E033NZ Introduction of Analgesics, Hypnotics, Sedatives into Peripheral Vein, Percutaneous Approach (ICD-10-PCS; principal; 2019-01-20)
DX: R10.30 Lower abdominal pain, unspecified (principal); K50.90 Crohn's disease, unspecified, without complications
CPT/HCPCS: 36415; 74177-TC; 80053; 81003; 83605; 85025; 87086; 99283-25; J0131; J7030

== ENCOUNTER 2019-04-30 22:08 | Emergency (ER) | payer OTHER ==
[2019-04-30 22:17] VITALS: TEMP 98.3; BMI 35.4
--- NOTE | 2019-04-30 22:42 | PDOC ---
History of Present Illness - General Chief Complaint: Pain Stated Complaint: ABD PAIN Time Seen by Provider: 04/30/19 22:38 History Source: Patient Exam Limitations: No Limitations - History of Present Illness Initial Comments: 04/30/19 22:41 PCP: Dr. Chago Dawson HPI: 53yo F PMH Crohn's disease (currently on chris and pentasa), prior bowel perforation, s/p colectomy, iliostomy creation and reversal, presenting with to the emergency department with lower abdominal pain since 6PM tonight. Patient reports pain came on suddenly at six, initially mild, progressively worsening. Pain is located on the L side, lower abdomen. Pain is stabbing in quality, without associated symptoms. Took her pentasa prior to arrival without relief of her pain. States that this pain feels just like previous crohn's flares. Endorses having a regular BM earlier today, no constipation, diarrhea, or blood. Denies fever, chills, nausea, vomiting, chest pain, SOB, dysuria, hematuria, diarrhea, hematochezia, and/or melena. Unsure if she still has her appendix after her surgeries. Last ate at 1PM without nausea or vomiting. All: NKDA Meds: Per chart PMH: As above PSH: Per chart SHx: Denies smoking, ETOH, Illicits Past History - Travel Traveled outside of the country in the last 30 days: No Close contact w/someone who was outside of country & ill: No - Past Medical History Allergies/Adverse Reactions: Allergies Allergy/AdvReac Type Severity Reaction Status Date / Time No Known Drug Allergies Allergy Verified 04/30/19 22:17 Home Medications: Ambulatory Orders Mesalamine [Pentasa] 1,000 mg PO QID 09/29/11 Adalimumab [Humira] 0 mg SQ ASDIR 09/03/14 predniSONE [Deltasone -] 40 mg PO DAILY #10 tablet 12/26/17 Anemia: No Asthma: No Cancer: No Cardiac Disorders: No CVA: No COPD: No CHF: No Dementia: No Diabetes: No GI Disorders: Yes (crohn's disease) Disorders: No HTN: No Hypercholesterolemia: No Liver Disease: No Seizures: No Thyroid Disease: No - Surgical History Abdominal Surgery: Yes (ILEOSTOMY 05/2011, with reversal,small bowel resection 2011) Appendectomy: No Cardiac Surgery: No Cholecystectomy: No Lung Surgery: No Neurologic Surgery: No Orthopedic Surgery: No - Immunization History Immunization Up to Date: Yes - Psycho Social/Smoking Cessation Hx Smoking Status: No Smoking History: Never smoked Have you smoked in the past 12 months: No Number of Cigarettes Smoked Daily: 0 Hx Alcohol Use: No Drug/Substance Use Hx: No Substance Use Type: None Hx Substance Use Treatment: No Review of Systems - Review of Systems Able to Perform ROS?: Yes Is the patient limited Palauan proficient: Yes Constitutional: No: Chills, Diaphoresis, Fever, Weakness HEENTM: No: Nose Congestion, Throat Pain Respiratory: No: Cough, Shortness of Breath Cardiac (ROS): No: Chest Pain, Edema, Irregular Heart Rate, Lightheadedness, Palpitations, Syncope, Chest Tightness ABD/GI: No: Constipated, Diarrhea, Nausea, Poor Appetite, Poor Fluid Intake, Vomiting : No: Burning, Dysuria, Discharge Musculoskeletal: No: Back Pain, Muscle Pain, Muscle Weakness Integumentary: No: Bruising, Pruritus, Rash Neurological: No: Headache, Numbness, Tingling, Weakness Psychiatric: No: Stressors, Change in Appetite Endocrine: No: Increased Thirst, Increased Urine Hematologic/Lymphatic: No: Anemia, Blood Clots, Easy Bleeding All Other Systems: Reviewed and Negative *Physical Exam - Vital Signs Last Vital Signs Temp Pulse Resp BP Pulse Ox 98.3 F 68 18 128/70 99 04/30/19 22:15 04/30/19 22:15 04/30/19 22:15 04/30/19 22:15 04/30/19 22:15 - Physical Exam 04/30/19 23:21 Vitals reviewed, AFVSS GEN: Well appearing, appears stated age, NAD, uncomfortable. AAOx3. HEENT: NCAT, EOMI, PERRL. Sclera anicteric, noninjected. No facial asymmetry. Moist mucous membranes. Normal voice. Trachea midline. CV: RRR, S1/S2, no murmurs / rubs / gallops appreciated. LUNG: CTAB, normal work of breathing. No wheezes, rales, rhonchi. No cough. Speaking full sentences. GI: Soft, obese, non-distended, tender in RUQ, +BS, no guarding, no rebound. + surgical scars, non-peritoneal. No masses. Neg CVAT b/l. EXTREMITIES: 2+ distal pulses. No LE edema. No obvious deformities of all extremities. SKIN: Warm, dry, no rashes appreciated, non-jaundiced. PSYCH: Normal mood and affect. Cooperative and appropriate. NEURO: CN grossly intact. Moving all extremities well. Normal strength and sensation grossly. ED Treatment Course - LABORATORY CBC & Chemistry Diagram: 04/30/19 23:00 04/30/19 23:00 Medical Decision Making - Medical Decision Making 04/30/19 23:23 53yo F PMH Crohn's disease (currently on chris and pentasa), prior bowel perforation, s/p colectomy, iliostomy creation and reversal, presenting with to the emergency department with lower abdominal pain since 6PM tonight. History notable for pain c/w prior flares, history of perforation, pain without associated symptoms. Exam notable for stable vitals, no fever, abdominal tenderness RUQ, pain in L side, non-peritoneal. DDX: Crohn's flare, appendicitis , colitis, cholecystitis, SBO. - CBC, CMP, lipase - UA, UCx - 1L IVF - 1g Ofirmev - 2mg Morphine (bp 135/78) 04/30/19 23:50 - Patient endorses epigastric pain now - EKG, Cardiac Profile, Pepcid, CXR - Not drinking her contrast "until I feel better" 04/30/19 23:59 - Patient endrosed to overnight resident Jonnathan - CT 1 hour after patient drinks contrast - Pain control - Disposition pending CT Discharge - Discharge Information Problems reviewed: Yes Clinical Impression/Diagnosis: Abdominal pain Condition: Improved Disposition: HOME - Follow up/Referral - Patient Discharge Instructions Patient Printed Discharge Instructions: DI for Abdominal Pain-Adult Additional Instructions: You were seen with abdominal pain. Your labs were unconcerning, and your imaging did not show any acute issues. Follow up with your primary care doctor within one week. Return to the ED if you develop worsening symptoms. - Post Discharge Activity Work/Back to School Note: Back to Work
--- NOTE | 2019-04-30 22:58 | PDOC ---
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 04/30/19 23:48 WBC normal Lipase normal 05/01/19 00:43 All labs are normal 05/01/19 00:44 CT scan pending 05/01/19 00:55 Pt is stable at this time 05/01/19 05:47 UA is normal 05/01/19 06:30 Patient Name: RICKY LINCOLN THIS IS A PRELIMINARY REPORT FROM [facility] DATE OF SERVICE: 2019-05-01 03:38:44 IMAGES: 530 EXAM: ABDOMEN \T\ PELVIS CT WITH CONTR HISTORY: Abdominal pain COMPARISON: None. FINDINGS: Lung bases are clear. The visualized cardiac chambers are normal size and configuration. Normal liver, gallbladder, pancreas, spleen, adrenal glands and kidneys. The stomach and abdominal small and large bowel are normal. There is no aortic aneurysm. There is no significant retroperitoneal lymphadenopathy. Diastases recti is noted with. The pelvic small and large bowel are normal. Status post appendectomy. The uterus and adnexal structures are normal. Urinary bladder is unremarkable. There is minimal pelvic free fluid. No discrete pelvic lymphadenopathy is identified. IMPRESSION: No localizing signs for acute pathology. 05/01/19 06:34 Ready to go home
[2019-04-30] MEDS ORDERED: ACETAMINOPHEN 1000 MG/100 ML VIAL (NON FORMULARY) IVPB ONE (22:59)
[2019-04-30] MEDS ORDERED: SODIUM CHLORIDE 0.9% 500 ML INFUS.BAG IV ONE (22:59)
[2019-04-30 23:15] LABS: BASO % 0.4 % (0-2.0); EOS % 0.9 % (0-4.5); HEMATOCRIT 38.2 % (32.4-45.2); HEMOGLOBIN 12.9 GM/dL (10.7-15.3); LYMPH % 32.9 % (8-40); MCH 31.4 pg (25.7-33.7); MCHC 33.7 g/dl (32.0-36.0); MEAN CELL VOLUME 93.1 fl (80-96); MEAN PLT VOLUME 8.3 fl (7.5-11.1); MONO % 5.2 % (3.8-10.2); NEUT % 60.6 % (42.8-82.8); PLATELET COUNT 200 K/MM3 (134-434); RDW 13.9 % (11.6-15.6); WHITE BLOOD COUNT 6.1 K/mm3 (4.0-10.0)
[2019-04-30 23:24] LABS: INR 0.98 (0.83-1.09); PROTHROMBIN TIME (PATIENT) 11.6 SEC (9.7-13.0)
[2019-04-30 23:27] LABS: ACTIVATED PTT 20.6 SECONDS (25.2-36.5)
[2019-04-30] MEDS ORDERED: morphine CARPU-JECT 4 MG/1 ML DISP.SYRIN IVPUSH ONE (23:28)
[2019-04-30] MEDS ORDERED: FAMOTIDINE 20 MG/50 ML IVPB 20 MG/50 ML MG IVPB ONE (23:44)
[2019-04-30 23:48] LABS: ALBUMIN 3.3 g/dl (3.4-5.0); ALK PHOS 67 U/L (45-117); ANION GAP 5 MMOL/L (8-16); BILIRUBIN,TOTAL 0.3 mg/dL (0.2-1); BLOOD UREA NITROGEN 12.9 mg/dL (7-18); CALCIUM 9.1 mg/dL (8.5-10.1); CHLORIDE 109 mmol/L (98-107); CO2 26 mmol/L (21-32); CREATININE 0.8 mg/dL (0.55-1.3); GLUCOSE,RANDOM 107 mg/dL (74-106); SGOT/AST 21 U/L (15-37); SGPT/ALT 26 U/L (13-61); SODIUM 140 mmol/L (136-145); TOT PROT 7.1 g/dl (6.4-8.2)
[2019-05-01 02:42] LABS: EPI CELLS 0.2 /HPF (0-5/HPF); HYALINE CASTS 1 /lpf (0-8); URINE APPEARANCE CLEAR; URINE BACTERIA 1.4 /hpf (NEGATIVE); URINE BILIRUBIN NEGATIVE (NEGATIVE); URINE COLOR YELLOW; URINE GLUCOSE (UA) NEGATIVE (NEGATIVE); URINE KETONE NEGATIVE (NEGATIVE); URINE LEUK ESTERASE NEGATIVE (NEGATIVE); URINE NITRITE NEGATIVE (NEGATIVE); URINE PROTEIN NEGATIVE (NEGATIVE); URINE RBC 1 /hpf (0-4); URINE UROBILINOGEN 0.2 mg/dL (0.2-1.0); URINE WBC 0 /hpf (0-5)
--- NOTE | 2019-05-01 06:32 | PDOC ---
*Physical Exam - Vital Signs Last Vital Signs Temp Pulse Resp BP Pulse Ox 98.3 F 71 18 135/78 99 04/30/19 22:15 04/30/19 23:40 04/30/19 23:40 04/30/19 23:40 05/01/19 01:55 ED Treatment Course - LABORATORY CBC & Chemistry Diagram: 04/30/19 23:00 04/30/19 23:00 - ADDITIONAL ORDERS Additional order review: Laboratory Results 05/01/19 04/30/19 04/30/19 02:15 23:00 23:00 PT with INR 11.60 INR 0.98 PTT (Actin FS) 20.6 L Sodium Potassium Chloride Carbon Dioxide Anion Gap BUN Creatinine Est GFR (CKD-EPI)AfAm Est GFR (CKD-EPI)NonAf Random Glucose Calcium Total Bilirubin AST ALT Alkaline Phosphatase Creatine Kinase Creatine Kinase Index CK-MB (CK-2) Troponin I Total Protein Albumin Lipase 157 Urine Color Yellow Urine Appearance Clear Urine pH 5.0 Ur Specific [place] 1.006 L Urine Protein Negative Urine Glucose (UA) Negative Urine Ketones Negative Urine Blood 2+ H Urine Nitrite Negative Urine Bilirubin Negative Urine Urobilinogen 0.2 Ur Leukocyte Esterase Negative Urine WBC (Auto) 0 Urine RBC (Auto) 1 Urine Casts (Auto) 1 U Epithel Cells (Auto) 0.2 Urine Bacteria (Auto) 1.4 04/30/19 23:00 PT with INR INR PTT (Actin FS) Sodium 140 Potassium 4.0 Chloride 109 H Carbon Dioxide 26 Anion Gap 5 L BUN 12.9 Creatinine 0.8 Est GFR (CKD-EPI)AfAm 96.87 Est GFR (CKD-EPI)NonAf 83.58 Random Glucose 107 H Calcium 9.1 Total Bilirubin 0.3 AST 21 ALT 26 Alkaline Phosphatase 67 Creatine Kinase 255 H Creatine Kinase Index 1.0 CK-MB (CK-2) 2.7 Troponin I < 0.02 Total Protein 7.1 Albumin 3.3 L Lipase Urine Color Urine Appearance Urine pH Ur Specific [place] Urine Protein Urine Glucose (UA) Urine Ketones Urine Blood Urine Nitrite Urine Bilirubin Urine Urobilinogen Ur Leukocyte Esterase Urine WBC (Auto) Urine RBC (Auto) Urine Casts (Auto) U Epithel Cells (Auto) Urine Bacteria (Auto) 04/30/19 23:00 RBC 4.10 MCV 93.1 MCHC 33.7 RDW 13.9 MPV 8.3 Neutrophils % 60.6 Lymphocytes % 32.9 Monocytes % 5.2 Eosinophils % 0.9 Basophils % 0.4 - Medications Given in the ED: ED Medications Discontinued Medications Generic Name Dose Route Start Last Admin Trade Name Kaz PRN Reason Stop Dose Admin Acetaminophen 1,000 mg 04/30/19 22:59 04/30/19 23:19 Ofirmev Injection - IVPB 04/30/19 23:00 1,000 mg ONCE ONE Administration Famotidine/Sodium Chloride 20 mg in 50 mls @ 100 mls/hr 04/30/19 23:44 23:54 Pepcid 20 Mg Premixed Ivpb - IVPB 05/01/19 00:13 100 mls/hr ONCE ONE Administration Morphine Sulfate 2 mg 04/30/19 23:28 04/30/19 23:40 Morphine Injection - IVPUSH 04/30/19 23:29 2 mg ONCE ONE Administration Sodium Chloride 1,000 ml 04/30/19 22:59 04/30/19 23:19 Normal Saline - IV 04/30/19 23:00 1,000 ml ONCE ONE Administration Medical Decision Making - Medical Decision Making 05/01/19 06:29 CT scan read and negative for acute pathology. Patient feeling better. Will dc for further outpatient management. Discharge - Discharge Information Problems reviewed: Yes Clinical Impression/Diagnosis: Abdominal pain Condition: Improved Disposition: HOME - Admission No - Follow up/Referral - Patient Discharge Instructions Patient Printed Discharge Instructions: DI for Abdominal Pain-Adult Additional Instructions: You were seen with abdominal pain. Your labs were unconcerning, and your imaging did not show any acute issues. Follow up with your primary care doctor within one week. Return to the ED if you develop worsening symptoms. - Post Discharge Activity Work/Back to School Note: Back to Work
[2019-05-01 06:42] VITALS: BP 123/71; PULSE 73
--- NOTE | 2019-05-02 10:15 | EKG ---
Test Reason : Blood Pressure : / mmHG Vent. Rate : 066 BPM Atrial Rate : 066 BPM P-R Int : 218 ms QRS Dur : 090 ms QT Int : 402 ms P-R-T Axes : 046 008 016 degrees QTc Int : 421 ms SINUS RHYTHM WITH 1ST DEGREE A-V BLOCK OTHERWISE NORMAL ECG WHEN COMPARED WITH ECG OF 30-AUG-2017 07:08, NO SIGNIFICANT CHANGE WAS FOUND Confirmed by Lainey Redmond ([id number]) on 05/02/2019 10:14:51 AM Referred By: Confirmed By:Lainey Redmond
== END 2019-05-01 06:42 | disposition home or self-care (01) ==
LOC: JER 22:08
PROC: 3E033GC Introduction of Other Therapeutic Substance into Peripheral Vein, Percutaneous Approach (ICD-10-PCS; principal; 2019-04-30)
PROC: 3E033NZ Introduction of Analgesics, Hypnotics, Sedatives into Peripheral Vein, Percutaneous Approach (ICD-10-PCS; 2019-04-30)
PROC: 3E033NZ Introduction of Analgesics, Hypnotics, Sedatives into Peripheral Vein, Percutaneous Approach (ICD-10-PCS; 2019-04-30)
DX: R10.9 Unspecified abdominal pain (principal); K50.90 Crohn's disease, unspecified, without complications; Z87.19 Personal history of other diseases of the digestive system; Z98.890 Other specified postprocedural states
CPT/HCPCS: 36415; 71045-TC-FY; 74177-TC; 80053; 81003; 82550; 82553; 83690; 84484; 85025; 85610; 85730; 87086; 93005; 93010; 99285-25; J0131; Q9967

== ENCOUNTER 2020-07-24 19:44 | Inpatient (IN) | payer OTHER ==
[2020-07-24] MEDS ORDERED: SODIUM CHLORIDE 1,000 ML IV STA (20:57)
[2020-07-24] MEDS ORDERED: ONDANSETRON 4 MG/2 ML VIAL IVPUSH ONE (20:57)
[2020-07-24] MEDS ORDERED: morphine CARPU-JECT 4 MG/1 ML DISP.SYRIN IVPUSH ONE (20:57)
[2020-07-24 22:14] LABS: BASO % 0.7 % (0-2.0); EOS % 0.8 % (0-4.5); HEMATOCRIT 38.1 % (32.4-45.2); HEMOGLOBIN 12.8 GM/dL (10.7-15.3); LYMPH % 32.5 % (8-40); MCH 30.8 pg (25.7-33.7); MCHC 33.7 g/dl (32.0-36.0); MEAN CELL VOLUME 91.6 fl (80-96); MEAN PLT VOLUME 8.4 fl (7.5-11.1); MONO % 5.9 % (3.8-10.2); NEUT % 60.1 % (42.8-82.8); PLATELET COUNT 224 K/MM3 (134-434); RBC 4.16 M/mm3 (3.60-5.2); RDW 14.6 % (11.6-15.6); WHITE BLOOD COUNT 7.2 K/mm3 (4.0-10.0)
[2020-07-24 22:17] LABS: EPI CELLS 26 /uL (0-25.1); HYALINE CASTS 4 /uL (0-3.1); URINE APPEARANCE CLEAR; URINE BACTERIA 434 /uL (0-1359); URINE BILIRUBIN NEGATIVE (NEGATIVE); URINE COLOR DK YELLOW; URINE GLUCOSE (UA) NEGATIVE (NEGATIVE); URINE KETONE 1+ (NEGATIVE); URINE LEUK ESTERASE NEGATIVE (NEGATIVE); URINE NITRITE NEGATIVE (NEGATIVE); URINE PROTEIN NEGATIVE (NEGATIVE); URINE RBC 53 /uL (0-23.9); URINE UROBILINOGEN 0.2 mg/dL (0.2-1.0); URINE WBC 46 /uL (0-25.8)
[2020-07-24 22:49] LABS: CALCIUM 8.8 mg/dL (8.5-10.1)
[2020-07-24 22:50] LABS: ALBUMIN 3.6 g/dl (3.4-5.0); BLOOD UREA NITROGEN 7.8 mg/dL (7-18)
[2020-07-24 22:53] LABS: CREATININE 0.8 mg/dL (0.55-1.3)
[2020-07-24 22:54] LABS: BILIRUBIN,TOTAL 0.6 mg/dL (0.2-1); TOT PROT 7.5 g/dl (6.4-8.2)
[2020-07-25] MEDS ORDERED: morphine CARPU-JECT 4 MG/1 ML DISP.SYRIN IVPUSH ONE ×2 (00:44→05:14)
[2020-07-25] MEDS ORDERED: SODIUM CHLORIDE 1,000 ML IV STA (02:39)
[2020-07-25] MEDS ORDERED: ONDANSETRON 4 MG/2 ML VIAL IVPUSH ONE (03:10)
[2020-07-25] MEDS ORDERED: ONDANSETRON *ODT* 4 MG TABLET SL ONE (05:14)
[2020-07-25] MEDS ORDERED: ONDANSETRON 4 MG/2 ML VIAL IVPUSH PRN (08:33)
[2020-07-25] MEDS: ENOXAPARIN NA (PORCINE) 40 MG/0.4 ML DISP.SYRIN SQ SCH (10:01)
[2020-07-25] MEDS: DEXTROSE 5%-0.45% SALINE 1,000 ML IV SCH ×2 (10:05→23:15)
[2020-07-25] MEDS: MORPHINE SULFATE 2 MG/ML VIAL IVPUSH PRN (11:00)
[2020-07-25] MEDS: methylPREDNISolone NA SUCC 40 MG/1 ML VIAL IVPUSH SCH (15:43)
[2020-07-26] MEDS ORDERED: ONDANSETRON 4 MG/2 ML VIAL ONE (04:32)
[2020-07-26 07:18] LABS: BASO % 0.3 % (0-2.0); EOS % 0.1 % (0-4.5); HEMATOCRIT 36.2 % (32.4-45.2); HEMOGLOBIN 12.3 GM/dL (10.7-15.3); LYMPH % 24.5 % (8-40); MCH 30.8 pg (25.7-33.7); MEAN CELL VOLUME 90.6 fl (80-96); MEAN PLT VOLUME 7.6 fl (7.5-11.1); MONO % 7.1 % (3.8-10.2); PLATELET COUNT 200 K/MM3 (134-434); RBC 3.99 M/mm3 (3.60-5.2); RDW 13.8 % (11.6-15.6); WHITE BLOOD COUNT 8.3 K/mm3 (4.0-10.0)
[2020-07-26 07:52] LABS: ALBUMIN 2.9 g/dl (3.4-5.0)
[2020-07-26 07:54] LABS: CALCIUM 8.2 mg/dL (8.5-10.1)
[2020-07-26 07:55] LABS: CREATININE 0.7 mg/dL (0.55-1.3)
[2020-07-26 07:56] LABS: BILIRUBIN,TOTAL 0.5 mg/dL (0.2-1); TOT PROT 6.2 g/dl (6.4-8.2)
[2020-07-26] MEDS: ENOXAPARIN NA (PORCINE) 40 MG/0.4 ML DISP.SYRIN SQ SCH (09:20)
[2020-07-26] MEDS: DEXTROSE 5%-0.45% SALINE 1,000 ML IV SCH (09:26)
[2020-07-26] MEDS: methylPREDNISolone NA SUCC 40 MG/1 ML VIAL IVPUSH SCH ×2 (09:54→21:46)
[2020-07-27 07:33] LABS: BASO % 0.1 % (0-2.0); HEMATOCRIT 36.6 % (32.4-45.2); HEMOGLOBIN 12.4 GM/dL (10.7-15.3); LYMPH % 19.4 % (8-40); MCH 30.8 pg (25.7-33.7); MCHC 33.8 g/dl (32.0-36.0); MEAN CELL VOLUME 91.2 fl (80-96); MEAN PLT VOLUME 8.3 fl (7.5-11.1); MONO % 6.7 % (3.8-10.2); NEUT % 73.8 % (42.8-82.8); PLATELET COUNT 213 K/MM3 (134-434); RBC 4.01 M/mm3 (3.60-5.2); RDW 14.5 % (11.6-15.6); WHITE BLOOD COUNT 10.3 K/mm3 (4.0-10.0)
[2020-07-27 08:00] LABS: ALBUMIN 2.9 g/dl (3.4-5.0); CALCIUM 8.4 mg/dL (8.5-10.1)
[2020-07-27 08:01] LABS: BLOOD UREA NITROGEN 8.3 mg/dL (7-18)
[2020-07-27 08:04] LABS: CREATININE 0.8 mg/dL (0.55-1.3)
[2020-07-27 08:05] LABS: BILIRUBIN,TOTAL 0.4 mg/dL (0.2-1); TOT PROT 6.4 g/dl (6.4-8.2)
[2020-07-27] MEDS: DEXTROSE 5%-0.45% SALINE 1,000 ML IV SCH (09:48)
[2020-07-27] MEDS: ENOXAPARIN NA (PORCINE) 40 MG/0.4 ML DISP.SYRIN SQ SCH (10:07)
[2020-07-27] MEDS: methylPREDNISolone NA SUCC 40 MG/1 ML VIAL IVPUSH SCH ×2 (10:10→21:15)
[2020-07-27] MEDS: MORPHINE SULFATE 2 MG/ML VIAL IVPUSH PRN (11:36)
[2020-07-27 15:18] VITALS: BMI 37.9
[2020-07-28] MEDS: ENOXAPARIN NA (PORCINE) 40 MG/0.4 ML DISP.SYRIN SQ SCH (09:01)
[2020-07-28] MEDS: methylPREDNISolone NA SUCC 40 MG/1 ML VIAL IVPUSH SCH (09:01)
[2020-07-28] MEDS: DEXTROSE 5%-0.45% SALINE 1,000 ML IV SCH (09:01)
[2020-07-28] MEDS: metroNIDAZOLE 250 MG TABLET PO SCH ×2 (10:01→21:57)
[2020-07-28] MEDS: predniSONE 20 MG TABLET (UD) PO SCH ×2 (10:02→21:57)
[2020-07-29 07:14] LABS: BASO % 0.1 % (0-2.0); HEMATOCRIT 36.2 % (32.4-45.2); HEMOGLOBIN 12.2 GM/dL (10.7-15.3); LYMPH % 24.2 % (8-40); MCH 30.7 pg (25.7-33.7); MCHC 33.6 g/dl (32.0-36.0); MEAN CELL VOLUME 91.4 fl (80-96); MEAN PLT VOLUME 8.1 fl (7.5-11.1); MONO % 6.5 % (3.8-10.2); NEUT % 69.2 % (42.8-82.8); PLATELET COUNT 213 K/MM3 (134-434); RBC 3.96 M/mm3 (3.60-5.2); RDW 14.2 % (11.6-15.6); WHITE BLOOD COUNT 7.7 K/mm3 (4.0-10.0)
[2020-07-29 07:47] LABS: CALCIUM 8.6 mg/dL (8.5-10.1)
[2020-07-29 07:48] LABS: ALBUMIN 2.7 g/dl (3.4-5.0); BLOOD UREA NITROGEN 11.2 mg/dL (7-18)
[2020-07-29 07:51] LABS: CREATININE 0.8 mg/dL (0.55-1.3)
[2020-07-29 07:52] LABS: BILIRUBIN,TOTAL 0.3 mg/dL (0.2-1); TOT PROT 6.1 g/dl (6.4-8.2)
[2020-07-29] MEDS: ENOXAPARIN NA (PORCINE) 40 MG/0.4 ML DISP.SYRIN SQ SCH (09:15)
[2020-07-29] MEDS: metroNIDAZOLE 250 MG TABLET PO SCH (09:16)
[2020-07-29] MEDS: predniSONE 20 MG TABLET (UD) PO SCH (09:16)
[2020-07-29 14:11] VITALS: BP 123/69; PULSE 62; TEMP 98.1
== END 2020-07-29 17:53 | disposition home or self-care (01) | DRG 389 ==
LOC: JER 19:44 → JERBED 07-25 02:34 → J7W 07-25 08:21
PROVIDERS: ADMIT Internal Medicine; ATTEND Internal Medicine
PROC: 0D9670Z Drainage of Stomach with Drainage Device, Via Natural or Artificial Opening (ICD-10-PCS; principal; 2020-07-25)
DX: K56.609 Unspecified intestinal obstruction, unspecified as to partial versus complete obstruction (principal); K50.90 Crohn's disease, unspecified, without complications; E66.9 Obesity, unspecified; Z68.37 Body mass index [BMI] 37.0-37.9, adult
CPT/HCPCS: 36415; 71045-TC-FY; 74019-TC-FY; 74021-TC-FY; 74177-TC; 80053; 81003; 83690; 83735; 85025; 87086; 93005; 93010; 99285-25; C9803; Q0162; U0003; U0005

== ENCOUNTER 2020-09-30 23:19 | Inpatient (IN) | payer OTHER ==
[2020-10-01] MEDS ORDERED: METOCLOPRAMIDE HCL INJECTION 10 MG/2 ML VIAL IVPB ONE (00:26)
[2020-10-01] MEDS ORDERED: ACETAMINOPHEN 1000 MG/100 ML VIAL (NON FORMULARY) IVPB ONE (00:54)
[2020-10-01] MEDS ORDERED: METOCLOPRAMIDE HCL INJECTION 10 MG/2 ML VIAL ONE (00:54)
[2020-10-01] MEDS ORDERED: ACETAMINOPHEN INJECTION 100 ML IVPB ONE (00:55)
[2020-10-01 01:27] LABS: HEMATOCRIT 36.4 % (32.4-45.2); HEMOGLOBIN 12.1 GM/dL (10.7-15.3); MCH 29.6 pg (25.7-33.7); MCHC 33.1 g/dl (32.0-36.0); MEAN CELL VOLUME 89.5 fl (80-96); MEAN PLT VOLUME 7.4 fl (7.5-11.1); MONO % 6.8 % (3.8-10.2); NEUT % 58.2 % (42.8-82.8); PLATELET COUNT 246 10^3/uL (134-434); RBC 4.07 M/mm3 (3.60-5.2); RDW 15.2 % (11.6-15.6); WHITE BLOOD COUNT 7.7 K/mm3 (4.0-10.0)
[2020-10-01 01:44] LABS: CHLORIDE 108 mmol/L (98-107); SODIUM 140 mmol/L (136-145)
[2020-10-01 01:45] LABS: ALBUMIN 3.3 g/dl (3.4-5.0); ANION GAP 5 MMOL/L (8-16); CALCIUM 8.9 mg/dL (8.5-10.1); CO2 27 mmol/L (21-32); GLUCOSE,RANDOM 81 mg/dL (74-106)
[2020-10-01 01:48] LABS: SGOT/AST 20 U/L (15-37); SGPT/ALT 28 U/L (13-61)
[2020-10-01 01:49] LABS: CREATININE 0.9 mg/dL (0.55-1.3)
[2020-10-01 01:50] LABS: BILIRUBIN,TOTAL 0.3 mg/dL (0.2-1); TOT PROT 6.9 g/dl (6.4-8.2)
[2020-10-01 01:51] LABS: ALK PHOS 46 U/L (45-117)
[2020-10-01] MEDS ORDERED: KETOROLAC TROMETHAMINE 30 MG/1 ML VIAL IVPUSH ONE (03:23)
[2020-10-01] MEDS ORDERED: KETOROLAC TROMETHAMINE 15 MG/ML VIAL ONE (03:26)
[2020-10-01] MEDS ORDERED: morphine CARPU-JECT 2 MG/1 ML DISP.SYRIN IVPUSH ONE (03:34)
[2020-10-01] MEDS ORDERED: MORPHINE SULFATE 2 MG/ML VIAL ONE (03:40)
[2020-10-01 04:35] LABS: EPI CELLS 3 /uL (0-25.1); HYALINE CASTS 0 /uL (0-3.1); PH,URINE 5.5 (5.0-8.0); URINE APPEARANCE CLEAR; URINE BACTERIA 61 /uL (0-1359); URINE BILIRUBIN NEGATIVE (NEGATIVE); URINE COLOR YELLOW; URINE GLUCOSE (UA) NEGATIVE (NEGATIVE); URINE KETONE NEGATIVE (NEGATIVE); URINE LEUK ESTERASE NEGATIVE (NEGATIVE); URINE NITRITE NEGATIVE (NEGATIVE); URINE PROTEIN NEGATIVE (NEGATIVE); URINE RBC 6 /uL (0-23.9); URINE UROBILINOGEN 0.2 mg/dL (0.2-1.0); URINE WBC 2 /uL (0-25.8)
[2020-10-01] MEDS ORDERED: MORPHINE SULFATE 2 MG/ML VIAL IVPUSH PRN (09:32)
[2020-10-01] MEDS ORDERED: ONDANSETRON 4 MG/2 ML VIAL IVPUSH PRN (09:32)
[2020-10-01 12:03] VITALS: BMI 37.8
[2020-10-01] MEDS: DEXTROSE 5%-0.45% SALINE 1,000 ML IV SCH ×2 (13:18→21:05)
[2020-10-01] MEDS: predniSONE 5 MG TABLET (UD) PO SCH (13:20)
[2020-10-01] MEDS: ENOXAPARIN NA (PORCINE) 40 MG/0.4 ML DISP.SYRIN SQ SCH (13:20)
[2020-10-02 08:56] LABS: BASO % 0.6 % (0-2.0); EOS % 1.3 % (0-4.5); HEMATOCRIT 35.6 % (32.4-45.2); HEMOGLOBIN 11.9 GM/dL (10.7-15.3); LYMPH % 40.8 % (8-40); MCH 29.7 pg (25.7-33.7); MCHC 33.5 g/dl (32.0-36.0); MEAN CELL VOLUME 88.7 fl (80-96); MEAN PLT VOLUME 7.7 fl (7.5-11.1); MONO % 7.1 % (3.8-10.2); NEUT % 50.2 % (42.8-82.8); PLATELET COUNT 235 10^3/uL (134-434); RBC 4.02 M/mm3 (3.60-5.2); RDW 15.2 % (11.6-15.6); WHITE BLOOD COUNT 6.7 K/mm3 (4.0-10.0)
[2020-10-02 09:18] LABS: ALBUMIN 2.8 g/dl (3.4-5.0); BLOOD UREA NITROGEN 4.8 mg/dL (7-18); CALCIUM 8.5 mg/dL (8.5-10.1)
[2020-10-02 09:22] LABS: CREATININE 0.8 mg/dL (0.55-1.3)
[2020-10-02 09:24] LABS: BILIRUBIN,TOTAL 0.4 mg/dL (0.2-1); TOT PROT 6.1 g/dl (6.4-8.2)
[2020-10-02] MEDS: predniSONE 5 MG TABLET (UD) PO SCH (09:35)
[2020-10-02] MEDS: ENOXAPARIN NA (PORCINE) 40 MG/0.4 ML DISP.SYRIN SQ SCH (09:36)
[2020-10-02 14:33] VITALS: BP 116/67; PULSE 67; TEMP 98.3
== END 2020-10-02 18:44 | disposition home or self-care (01) | DRG 389 ==
LOC: JER 23:19 → JERBED 10-01 03:35 → J6S 10-01 09:03
PROVIDERS: ADMIT Internal Medicine; ATTEND Internal Medicine
DX: K56.51 Intestinal adhesions [bands], with partial obstruction (principal); K50.012 Crohn's disease of small intestine with intestinal obstruction; R10.84 Generalized abdominal pain; Z90.49 Acquired absence of other specified parts of digestive tract
CPT/HCPCS: 36415; 71045-TC-FY; 74019-TC-FY; 74021-TC-FY; 74177-TC; 80053; 81003; 82550; 82553; 83690; 83735; 84484; 85025; 85730; 86140; 87086; 93005; 93010; 99285-25; C9803; J0131; U0003; U0005

== ENCOUNTER 2020-11-05 23:23 | Inpatient (IN) | payer OTHER ==
[2020-11-05] MEDS ORDERED: SODIUM CHLORIDE 0.9% 500 ML INFUS.BAG IV ONE (23:52)
[2020-11-05] MEDS ORDERED: ONDANSETRON 4 MG/2 ML VIAL IVPUSH ONE (23:52)
[2020-11-05] MEDS ORDERED: morphine CARPU-JECT 4 MG/1 ML DISP.SYRIN IVPUSH ONE (23:57)
[2020-11-05] MEDS ORDERED: morphine SULFATE 4 MG/ML VIAL ONE (23:58)
[2020-11-06] MEDS ORDERED: ONDANSETRON 4 MG/2 ML VIAL ONE (00:07)
[2020-11-06 00:11] LABS: BASO % 0.5 % (0-2.0); EOS % 0.2 % (0-4.5); HEMATOCRIT 38.6 % (32.4-45.2); HEMOGLOBIN 12.8 GM/dL (10.7-15.3); LYMPH % 11.9 % (8-40); MCH 28.5 pg (25.7-33.7); MCHC 33.1 g/dl (32.0-36.0); MEAN CELL VOLUME 86.2 fl (80-96); MEAN PLT VOLUME 7.4 fl (7.5-11.1); MONO % 6.6 % (3.8-10.2); NEUT % 80.8 % (42.8-82.8); PLATELET COUNT 242 10^3/uL (134-434); RBC 4.48 M/mm3 (3.60-5.2); RDW 15.5 % (11.6-15.6); WHITE BLOOD COUNT 14.3 K/mm3 (4.0-10.0)
[2020-11-06 00:34] LABS: CHLORIDE 105 mmol/L (98-107); SODIUM 138 mmol/L (136-145)
[2020-11-06 00:36] LABS: ALBUMIN 3.3 g/dl (3.4-5.0); ANION GAP 6 MMOL/L (8-16); CALCIUM 8.6 mg/dL (8.5-10.1); CO2 28 mmol/L (21-32); LIPASE 106 U/L (73-393)
[2020-11-06 00:37] LABS: BLOOD UREA NITROGEN 10.2 mg/dL (7-18); GLUCOSE,RANDOM 125 mg/dL (74-106)
[2020-11-06 00:39] LABS: SGOT/AST 24 U/L (15-37); SGPT/ALT 33 U/L (13-61)
[2020-11-06 00:41] LABS: BILIRUBIN,TOTAL 0.2 mg/dL (0.2-1); TOT PROT 7.3 g/dl (6.4-8.2)
[2020-11-06 00:42] LABS: ALK PHOS 50 U/L (45-117)
[2020-11-06 00:48] LABS: LACTIC ACID 2.9 mmol/L (0.4-2.0)
[2020-11-06] MEDS ORDERED: morphine CARPU-JECT 2 MG/1 ML DISP.SYRIN IVPUSH ONE (02:30)
[2020-11-06] MEDS ORDERED: morphine CARPU-JECT 4 MG/1 ML DISP.SYRIN IVPUSH ONE (02:32)
[2020-11-06] MEDS ORDERED: morphine SULFATE 4 MG/ML VIAL ONE (02:46)
[2020-11-06] MEDS ORDERED: methylPREDNISolone NA SUCC 125 MG/2 ML VIAL IVPUSH ONE (02:56)
[2020-11-06] MEDS ORDERED: SODIUM CHLORIDE 1,000 ML IV SCH (03:00)
[2020-11-06] MEDS ORDERED: methylPREDNISolone NA SUCC 125 MG/2 ML VIAL ONE (03:17)
[2020-11-06] MEDS ORDERED: LIDOCAINE HCL 2% JELLY 10 ML CARTRIDGE UR ONE (03:32)
[2020-11-06 03:40] LABS: URINE APPEARANCE CLEAR; URINE BILIRUBIN NEGATIVE (NEGATIVE); URINE COLOR YELLOW; URINE GLUCOSE (UA) NEGATIVE (NEGATIVE); URINE KETONE NEGATIVE (NEGATIVE); URINE LEUK ESTERASE NEGATIVE (NEGATIVE); URINE NITRITE NEGATIVE (NEGATIVE); URINE PROTEIN NEGATIVE (NEGATIVE); URINE UROBILINOGEN 0.2 mg/dL (0.2-1.0)
[2020-11-06] MEDS ORDERED: D5-1/2NS+20 MEQ KCL - 20 MEQ/1,000 ML INFUS.BAG IV SCH (10:00)
[2020-11-06] MEDS: MORPHINE SULFATE 2 MG/ML VIAL IVPUSH PRN (13:34)
[2020-11-06] MEDS: D5-1/2NS+10 MEQ KCL - 10 MEQ/1,000 ML INFUS.BAG IV SCH (17:57)
[2020-11-06] MEDS: methylPREDNISolone NA SUCC 40 MG/1 ML VIAL IVPUSH SCH (23:08)
[2020-11-06 23:29] VITALS: BMI 43.6
[2020-11-07] MEDS ORDERED: DEXTROSE 5%-WATER - 50 ML IVPB ONE ×3 (01:01→17:17)
[2020-11-07] MEDS ORDERED: PIPERACILLIN/TAZOBACTAM 3.375 GM VIAL IVPB ONE ×3 (01:01→17:17)
[2020-11-07] MEDS ORDERED: PIPERACILLIN/TAZOB 3.375 GM 3.375 GM in DEXTROSE 5%-WATER - 50 ML IVPB SCH ×2 (02:00→10:00)
[2020-11-07] MEDS: D5-1/2NS+10 MEQ KCL - 10 MEQ/1,000 ML INFUS.BAG IV SCH ×2 (03:13→15:50)
[2020-11-07 09:19] LABS: INR 1.1 (0.83-1.09); PROTHROMBIN TIME (PATIENT) 13.5 SEC (9.7-13.0)
[2020-11-07 09:21] LABS: BASO % 0.1 % (0-2.0); HEMATOCRIT 35.5 % (32.4-45.2); HEMOGLOBIN 11.9 GM/dL (10.7-15.3); LYMPH % 11.6 % (8-40); MCH 29.1 pg (25.7-33.7); MCHC 33.4 g/dl (32.0-36.0); MEAN CELL VOLUME 87.1 fl (80-96); MEAN PLT VOLUME 7.9 fl (7.5-11.1); MONO % 3.9 % (3.8-10.2); NEUT % 84.4 % (42.8-82.8); PLATELET COUNT 237 10^3/uL (134-434); RBC 4.08 M/mm3 (3.60-5.2); RDW 15.7 % (11.6-15.6); WHITE BLOOD COUNT 13.5 K/mm3 (4.0-10.0)
[2020-11-07 09:30] LABS: CALCIUM 8.5 mg/dL (8.5-10.1)
[2020-11-07 09:31] LABS: ALBUMIN 2.9 g/dl (3.4-5.0); BLOOD UREA NITROGEN 11.6 mg/dL (7-18); MAGNESIUM 2.1 mg/dL (1.8-2.4)
[2020-11-07 09:32] LABS: CREATININE 0.8 mg/dL (0.55-1.3)
[2020-11-07 09:33] LABS: BILIRUBIN,TOTAL 0.5 mg/dL (0.2-1); TOT PROT 6.5 g/dl (6.4-8.2)
[2020-11-07 09:34] LABS: PHOSPHOROUS 3.3 mg/dL (2.5-4.9)
[2020-11-07] MEDS: PIPERACILLIN/TAZOB 3.375 GM 3.375 GM in DEXTROSE 5%-WATER - 50 ML IVPB SCH ×2 (09:54→17:49)
[2020-11-07] MEDS: methylPREDNISolone NA SUCC 40 MG/1 ML VIAL IVPUSH SCH ×2 (09:54→21:50)
[2020-11-07 10:17] LABS: CALCIUM 8.5 mg/dL (8.5-10.1)
[2020-11-07 10:18] LABS: BLOOD UREA NITROGEN 11.9 mg/dL (7-18)
[2020-11-07 10:21] LABS: CREATININE 0.8 mg/dL (0.55-1.3)
[2020-11-07] MEDS: MORPHINE SULFATE 2 MG/ML VIAL IVPUSH PRN (10:27)
[2020-11-08] MEDS ORDERED: DEXTROSE 5%-WATER - 50 ML IVPB ONE ×4 (00:40→15:24)
[2020-11-08] MEDS ORDERED: PIPERACILLIN/TAZOBACTAM 3.375 GM VIAL IVPB ONE ×4 (00:40→15:24)
[2020-11-08] MEDS: PIPERACILLIN/TAZOB 3.375 GM 3.375 GM in DEXTROSE 5%-WATER - 50 ML IVPB SCH ×3 (01:19→18:49)
[2020-11-08] MEDS: D5-1/2NS+10 MEQ KCL - 10 MEQ/1,000 ML INFUS.BAG IV SCH ×3 (05:58→23:29)
[2020-11-08 08:38] LABS: BASO % 0.1 % (0-2.0); HEMATOCRIT 34.5 % (32.4-45.2); HEMOGLOBIN 11.4 GM/dL (10.7-15.3); LYMPH % 18.8 % (8-40); MCH 28.9 pg (25.7-33.7); MCHC 33.2 g/dl (32.0-36.0); MEAN CELL VOLUME 87.1 fl (80-96); MEAN PLT VOLUME 7.4 fl (7.5-11.1); MONO % 4.2 % (3.8-10.2); NEUT % 76.9 % (42.8-82.8); PLATELET COUNT 206 10^3/uL (134-434); RBC 3.96 M/mm3 (3.60-5.2); RDW 15.4 % (11.6-15.6); WHITE BLOOD COUNT 11.3 K/mm3 (4.0-10.0)
[2020-11-08 09:06] LABS: BLOOD UREA NITROGEN 10.1 mg/dL (7-18); CALCIUM 8.7 mg/dL (8.5-10.1)
[2020-11-08 09:08] LABS: CREATININE 0.9 mg/dL (0.55-1.3)
[2020-11-08 09:18] LABS: LACTIC ACID 2.9 mmol/L (0.4-2.0)
[2020-11-08] MEDS: methylPREDNISolone NA SUCC 40 MG/1 ML VIAL IVPUSH SCH (09:35)
[2020-11-09] MEDS ORDERED: PIPERACILLIN/TAZOBACTAM 3.375 GM VIAL IVPB ONE ×2 (00:34→08:27)
[2020-11-09] MEDS ORDERED: DEXTROSE 5%-WATER - 50 ML IVPB ONE ×2 (00:34→08:28)
[2020-11-09] MEDS: PIPERACILLIN/TAZOB 3.375 GM 3.375 GM in DEXTROSE 5%-WATER - 50 ML IVPB SCH ×2 (01:03→09:02)
[2020-11-09] MEDS: D5-1/2NS+10 MEQ KCL - 10 MEQ/1,000 ML INFUS.BAG IV SCH (06:24)
[2020-11-09 08:11] LABS: BASO % 0.3 % (0-2.0); EOS % 0.6 % (0-4.5); HEMATOCRIT 33.9 % (32.4-45.2); HEMOGLOBIN 11.5 GM/dL (10.7-15.3); LYMPH % 34.3 % (8-40); MCH 29.5 pg (25.7-33.7); MCHC 33.8 g/dl (32.0-36.0); MEAN CELL VOLUME 87.2 fl (80-96); MEAN PLT VOLUME 7.8 fl (7.5-11.1); MONO % 7.1 % (3.8-10.2); NEUT % 57.7 % (42.8-82.8); PLATELET COUNT 199 10^3/uL (134-434); RBC 3.89 M/mm3 (3.60-5.2); RDW 15.5 % (11.6-15.6); WHITE BLOOD COUNT 10.4 K/mm3 (4.0-10.0)
[2020-11-09 08:27] LABS: CHLORIDE 108 mmol/L (98-107); SODIUM 140 mmol/L (136-145)
[2020-11-09 08:32] LABS: ALBUMIN 2.9 g/dl (3.4-5.0); ANION GAP 8 MMOL/L (8-16); BLOOD UREA NITROGEN 9.4 mg/dL (7-18); CALCIUM 8.4 mg/dL (8.5-10.1); CO2 24 mmol/L (21-32); GLUCOSE,RANDOM 90 mg/dL (74-106)
[2020-11-09 08:33] LABS: CREATININE 1.1 mg/dL (0.55-1.3); SGPT/ALT 36 U/L (13-61)
[2020-11-09 08:35] LABS: SGOT/AST 20 U/L (15-37)
[2020-11-09 08:37] LABS: ALK PHOS 41 U/L (45-117)
[2020-11-09 09:34] LABS: BILIRUBIN,TOTAL 0.4 mg/dL (0.2-1); TOT PROT 6.5 g/dl (6.4-8.2)
[2020-11-09] MEDS ORDERED: CALCIUM 500MG/VIT-D 200 UNITS COMBO TABLET (FP) PO SCH (10:00)
[2020-11-09] MEDS ORDERED: predniSONE 20 MG TABLET (UD) PO SCH (10:00)
[2020-11-09] MEDS ORDERED: predniSONE 10 MG TABLET (UD) PO SCH (10:00)
[2020-11-09 15:00] VITALS: BP 132/78; PULSE 62; TEMP 98.7
[2020-11-09 16:08] LABS: ATYPICAL pANCA <1:20 titer (Neg:<1:20); C-ANCA <1:20 titer (Neg:<1:20)
== END 2020-11-09 17:05 | disposition home or self-care (01) | DRG 389 ==
LOC: JER 23:23 → JERBED 11-06 03:51 → J7W 11-06 22:39
PROVIDERS: ADMIT Family Medicine Geriatric Medicine; ATTEND Family Medicine Geriatric Medicine
PROC: 0D9670Z Drainage of Stomach with Drainage Device, Via Natural or Artificial Opening (ICD-10-PCS; principal; 2020-11-06)
DX: K56.609 Unspecified intestinal obstruction, unspecified as to partial versus complete obstruction (principal); K50.90 Crohn's disease, unspecified, without complications; E87.2 Acidosis; R10.84 Generalized abdominal pain; Z90.49 Acquired absence of other specified parts of digestive tract; E66.9 Obesity, unspecified; Z68.37 Body mass index [BMI] 37.0-37.9, adult
CPT/HCPCS: 36415; 71045-TC-FY; 74019-TC-FY; 74174-TC; 74177-TC; 80048; 80053; 81003; 82607; 82728; 83036; 83520; 83540; 83550; 83605; 83690; 83735; 84100; 84484; 85025; 85610; 86140; 86256; 86671; 87086; 87186; 93005; 93010; 99285-25; C9803; Q9967; U0003; U0005

== ENCOUNTER 2021-01-31 05:10 | Day surgery (SDC) | payer OTHER ==
[2021-01-31 07:50] VITALS: BMI 36.6
[2021-01-31 09:03] VITALS: TEMP 97.7
[2021-01-31 09:34] VITALS: PULSE 60
[2021-01-31 09:40] VITALS: BP 119/62
== END 2021-01-31 09:49 | disposition home or self-care (01) ==
LOC: JASU-ENDO 05:10
PROVIDERS: ATTEND Internal Medicine Gastroenterology
PROC: 0DJD8ZZ Inspection of Lower Intestinal Tract, Via Natural or Artificial Opening Endoscopic (ICD-10-PCS; principal; 2021-01-31 08:30)
DX: Z12.11 Encounter for screening for malignant neoplasm of colon (principal); Z87.19 Personal history of other diseases of the digestive system; Z98.0 Intestinal bypass and anastomosis status

== ENCOUNTER 2022-10-30 04:36 | Day surgery (SDC) | payer OTHER ==
[2022-10-27 12:00] VITALS: BMI 33.2
[2022-10-30 11:35] VITALS: TEMP 97
[2022-10-30 12:01] VITALS: RESP 18
[2022-10-30 12:09] VITALS: BP 113/58; PULSE 53
== END 2022-10-30 12:06 | disposition home or self-care (01) ==
LOC: JASU-ENDO 04:36
PROVIDERS: ATTEND Internal Medicine Gastroenterology
PROC: 0DJD8ZZ Inspection of Lower Intestinal Tract, Via Natural or Artificial Opening Endoscopic (ICD-10-PCS; principal; 2022-10-30 10:00)
DX: K50.90 Crohn's disease, unspecified, without complications (principal)

== ENCOUNTER → 2022-12-02 | Day surgery (SDC) | payer OTHER | END | disposition home or self-care (01) | LOC: FMAMMOTONE 09:45 | PROVIDERS: ATTEND Family Medicine Geriatric Medicine | PROC: 0HBU3ZX Excision of Left Breast, Percutaneous Approach, Diagnostic (ICD-10-PCS; principal; 2022-12-02) | DX: N60.12 Diffuse cystic mastopathy of left breast (principal); N60.32 Fibrosclerosis of left breast; N64.89 Other specified disorders of breast; R92.0 Mammographic microcalcification found on diagnostic imaging of breast | CPT/HCPCS: 19081; 76098-TC-FY; 88305-TC; A4648 ==

== ENCOUNTER 2023-02-15 02:40 | Inpatient (IN) | payer OTHER ==
[2023-02-15] MEDS ORDERED: ACETAMINOPHEN 1000 MG/100 ML BAG IVPB ONE (03:10)
[2023-02-15] MEDS ORDERED: FAMOTIDINE 20 MG/50 ML IVPB 20 MG/50 ML MG IVPB ONE ×2 (03:10→03:21)
[2023-02-15] MEDS ORDERED: ONDANSETRON 4 MG/2 ML VIAL IVPUSH ONE (03:10)
[2023-02-15] MEDS ORDERED: morphine CARPU-JECT 4 MG/1 ML DISP.SYRIN IVPUSH ONE ×2 (03:13→09:15)
[2023-02-15] MEDS ORDERED: SODIUM CHLORIDE 1,000 ML IV STA (03:16)
[2023-02-15] MEDS ORDERED: ONDANSETRON 4 MG/2 ML VIAL ONE (03:21)
[2023-02-15] MEDS ORDERED: morphine SULFATE 4 MG/ML VIAL ONE ×2 (03:21→09:18)
[2023-02-15 04:21] LABS: BASO % 0.5 % (0-2.0); EOS % 0.5 % (0-4.5); HEMATOCRIT 38.9 % (32.4-45.2); HEMOGLOBIN 12.9 GM/dL (10.7-15.3); LYMPH % 36.5 % (8-40); MCH 28.3 pg (25.7-33.7); MCHC 33.1 g/dl (32.0-36.0); MEAN CELL VOLUME 85.5 fl (80-96); MEAN PLT VOLUME 7.4 fl (7.5-11.1); NEUT % 57.5 % (42.8-82.8); PLATELET COUNT 224 10^3/uL (134-434); RBC 4.56 M/mm3 (3.60-5.2); RDW 16.6 % (11.6-15.6); WHITE BLOOD COUNT 8.1 K/mm3 (4.0-10.0)
[2023-02-15 04:28] LABS: INR 0.98 (0.83-1.09); PROTHROMBIN TIME (PATIENT) 11.4 SEC (9.7-13.0)
[2023-02-15 04:31] LABS: ACTIVATED PTT 23.3 SECONDS (25.2-36.5)
[2023-02-15 04:46] LABS: POTASSIUM 3.8 mmol/L (3.5-5.1)
[2023-02-15 04:48] LABS: CALCIUM 9.1 mg/dL (8.5-10.1)
[2023-02-15 04:49] LABS: ALBUMIN 3.4 g/dl (3.4-5.0); BLOOD UREA NITROGEN 8.7 mg/dL (7-18)
[2023-02-15 04:52] LABS: CREATININE 0.7 mg/dL (0.55-1.3)
[2023-02-15 04:53] LABS: BILIRUBIN,TOTAL 0.4 mg/dL (0.2-1); TOT PROT 7.2 g/dl (6.4-8.2)
[2023-02-15 13:43] VITALS: RESP 18
[2023-02-15 14:31] VITALS: BMI 34.4
[2023-02-15] MEDS ORDERED: ONDANSETRON 4 MG/2 ML VIAL IVPUSH PRN (21:31)
[2023-02-15] MEDS ORDERED: ACETAMINOPHEN 1000 MG/100 ML BAG IVPB PRN (21:31)
[2023-02-15] MEDS ORDERED: DEXTROSE 5%-0.45% SALINE 1,000 ML IV SCH (21:45)
[2023-02-16] MEDS: DEXTROSE 5%-0.45% SALINE 1,000 ML IV SCH ×2 (01:15→10:14)
[2023-02-16 09:12] LABS: BASO % 0.7 % (0-2.0); EOS % 2.3 % (0-4.5); HEMATOCRIT 38.1 % (32.4-45.2); HEMOGLOBIN 12.4 GM/dL (10.7-15.3); LYMPH % 51.7 % (8-40); MCH 28.1 pg (25.7-33.7); MCHC 32.5 g/dl (32.0-36.0); MEAN CELL VOLUME 86.6 fl (80-96); MEAN PLT VOLUME 7.6 fl (7.5-11.1); MONO % 6.4 % (3.8-10.2); NEUT % 38.9 % (42.8-82.8); PLATELET COUNT 205 10^3/uL (134-434); RDW 16.7 % (11.6-15.6); WHITE BLOOD COUNT 4.6 K/mm3 (4.0-10.0)
[2023-02-16 09:37] LABS: POTASSIUM 3.8 mmol/L (3.5-5.1)
[2023-02-16 09:39] LABS: CALCIUM 8.8 mg/dL (8.5-10.1)
[2023-02-16 09:40] LABS: ALBUMIN 3.2 g/dl (3.4-5.0); BLOOD UREA NITROGEN 8.8 mg/dL (7-18)
[2023-02-16 09:43] LABS: CREATININE 0.9 mg/dL (0.55-1.3)
[2023-02-16 09:45] LABS: BILIRUBIN,TOTAL 0.6 mg/dL (0.2-1)
[2023-02-16] MEDS ORDERED: ENOXAPARIN NA (PORCINE) 40 MG/0.4 ML DISP.SYRIN SQ SCH (10:00)
[2023-02-16 15:21] VITALS: BP 137/76; PULSE 86; TEMP 98.5
== END 2023-02-16 15:23 | disposition left against medical advice (07) | DRG 389 ==
LOC: JER 02:40 → JERBED 10:13 → J8W 14:24
PROVIDERS: ADMIT Internal Medicine; ATTEND Internal Medicine
DX: K56.690 Other partial intestinal obstruction (principal); K50.90 Crohn's disease, unspecified, without complications; E66.9 Obesity, unspecified; Z68.34 Body mass index [BMI] 34.0-34.9, adult; R11.2 Nausea with vomiting, unspecified; D64.9 Anemia, unspecified
CPT/HCPCS: 36415; 74019-TC-FY; 74177-TC; 80053; 83605; 83690; 84484; 85025; 85610; 85730; 93005; 93010; 99285-25; Q9967

== ENCOUNTER 2023-07-29 19:19 | Inpatient (IN) | payer OTHER ==
[2023-07-29 19:23] VITALS: BMI 35.0
[2023-07-29] MEDS ORDERED: morphine SULFATE 4 MG/ML VIAL ONE ×2 (20:16→21:41)
[2023-07-29] MEDS: morphine CARPU-JECT 4 MG/1 ML DISP.SYRIN IVPUSH ONE ×2 (20:52→21:46)
[2023-07-29 21:14] LABS: BASO % 0.5 % (0-2.0); EOS % 1.3 % (0-4.5); HEMATOCRIT 34.7 % (32.4-45.2); HEMOGLOBIN 11.8 GM/dL (10.7-15.3); LYMPH % 39.1 % (8-40); MCHC 34.1 g/dl (32.0-36.0); MEAN PLT VOLUME 7.1 fl (7.5-11.1); MONO % 7.3 % (3.8-10.2); NEUT % 51.8 % (42.8-82.8); PLATELET COUNT 286 10^3/uL (134-434); RBC 3.81 M/mm3 (3.60-5.2); RDW 14.6 % (11.6-15.6); WHITE BLOOD COUNT 6.7 K/mm3 (4.0-10.0)
[2023-07-29 21:21] LABS: INR 0.99 (0.83-1.09); PROTHROMBIN TIME (PATIENT) 11.2 SEC (9.7-13.0)
[2023-07-29 21:23] LABS: ACTIVATED PTT 28.9 SECONDS (25.2-36.5)
[2023-07-29 21:40] LABS: POTASSIUM 4.3 mmol/L (3.5-5.1)
[2023-07-29 21:42] LABS: URINE APPEARANCE CLEAR; URINE BILIRUBIN NEGATIVE (NEGATIVE); URINE COLOR YELLOW; URINE GLUCOSE (UA) NEGATIVE (NEGATIVE); URINE KETONE NEGATIVE (NEGATIVE); URINE LEUK ESTERASE NEGATIVE (NEGATIVE); URINE NITRITE NEGATIVE (NEGATIVE); URINE PROTEIN NEGATIVE (NEGATIVE); URINE UROBILINOGEN 0.2 mg/dL (0.2-1.0)
[2023-07-29 21:42] LABS: CALCIUM 9.4 mg/dL (8.5-10.1)
[2023-07-29 21:43] LABS: ALBUMIN 3.3 g/dl (3.4-5.0); BLOOD UREA NITROGEN 8.3 mg/dL (7-18)
[2023-07-29 21:46] LABS: CREATININE 0.9 mg/dL (0.55-1.3)
[2023-07-29 21:47] LABS: BILIRUBIN,TOTAL 0.3 mg/dL (0.2-1)
[2023-07-29] MEDS ORDERED: SODIUM CHLORIDE 1,000 ML IV SCH (23:45)
[2023-07-30] MEDS: SODIUM CHLORIDE 1,000 ML IV SCH (00:38)
[2023-07-30] MEDS: ACETAMINOPHEN 1000 MG/100 ML BAG IVPB PRN (00:39)
[2023-07-30 09:05] LABS: BASO % 0.2 % (0-2.0); EOS % 0.1 % (0-4.5); HEMATOCRIT 35.7 % (32.4-45.2); HEMOGLOBIN 11.9 GM/dL (10.7-15.3); LYMPH % 16.7 % (8-40); MCH 30.4 pg (25.7-33.7); MCHC 33.2 g/dl (32.0-36.0); MEAN CELL VOLUME 91.3 fl (80-96); MEAN PLT VOLUME 7.5 fl (7.5-11.1); MONO % 6.3 % (3.8-10.2); NEUT % 76.7 % (42.8-82.8); PLATELET COUNT 279 10^3/uL (134-434); RBC 3.91 M/mm3 (3.60-5.2); RDW 14.8 % (11.6-15.6); WHITE BLOOD COUNT 7.4 K/mm3 (4.0-10.0)
[2023-07-30 09:45] LABS: POTASSIUM 3.9 mmol/L (3.5-5.1)
[2023-07-30 09:52] LABS: CALCIUM 8.7 mg/dL (8.5-10.1)
[2023-07-30 09:53] LABS: ALBUMIN 3.4 g/dl (3.4-5.0); BLOOD UREA NITROGEN 6.2 mg/dL (7-18); MAGNESIUM 1.9 mg/dL (1.8-2.4)
[2023-07-30 09:56] LABS: CREATININE 0.7 mg/dL (0.55-1.3); PHOSPHOROUS 2.7 mg/dL (2.5-4.9)
[2023-07-30 09:57] LABS: BILIRUBIN,TOTAL 0.5 mg/dL (0.2-1)
[2023-07-30] MEDS: ENOXAPARIN NA (PORCINE) 40 MG/0.4 ML DISP.SYRIN SQ SCH (10:20)
[2023-07-30] MEDS: ONDANSETRON 4 MG/2 ML VIAL IVPUSH PRN (10:20)
[2023-07-30] MEDS: FAMOTIDINE 20 MG/50 ML IVPB 20 MG/50 ML MG IVPB SCH (14:39)
[2023-07-30] MEDS: ARIPiprazole 15 MG TABLET PO SCH (18:32)
[2023-07-31] MEDS: ACETAMINOPHEN 1000 MG/100 ML BAG IVPB ONE (08:50)
[2023-07-31 09:47] LABS: BASO % 0.3 % (0-2.0); EOS % 0.8 % (0-4.5); HEMATOCRIT 33.3 % (32.4-45.2); HEMOGLOBIN 11.2 GM/dL (10.7-15.3); LYMPH % 32.9 % (8-40); MCH 30.7 pg (25.7-33.7); MCHC 33.5 g/dl (32.0-36.0); MEAN CELL VOLUME 91.6 fl (80-96); MEAN PLT VOLUME 7.3 fl (7.5-11.1); MONO % 8.3 % (3.8-10.2); NEUT % 57.7 % (42.8-82.8); PLATELET COUNT 266 10^3/uL (134-434); RBC 3.64 M/mm3 (3.60-5.2); WHITE BLOOD COUNT 6.7 K/mm3 (4.0-10.0)
[2023-07-31 10:08] LABS: POTASSIUM 3.6 mmol/L (3.5-5.1)
[2023-07-31 10:15] LABS: CALCIUM 8.2 mg/dL (8.5-10.1); CREATININE 0.8 mg/dL (0.55-1.3)
[2023-07-31 10:16] LABS: ALBUMIN 2.8 g/dl (3.4-5.0); BLOOD UREA NITROGEN 6.7 mg/dL (7-18)
[2023-07-31 10:17] LABS: BILIRUBIN,TOTAL 0.6 mg/dL (0.2-1); TOT PROT 6.1 g/dl (6.4-8.2)
[2023-07-31] MEDS: SODIUM CHLORIDE 1,000 ML IV SCH (16:25)
[2023-07-31] MEDS: ACETAMINOPHEN 1000 MG/100 ML BAG IVPB PRN (16:25)
[2023-08-01 10:13] LABS: BASO % 0.3 % (0-2.0); EOS % 0.7 % (0-4.5); HEMATOCRIT 34.7 % (32.4-45.2); HEMOGLOBIN 11.6 GM/dL (10.7-15.3); LYMPH % 29.8 % (8-40); MCH 30.8 pg (25.7-33.7); MCHC 33.6 g/dl (32.0-36.0); MEAN CELL VOLUME 91.8 fl (80-96); MEAN PLT VOLUME 7.3 fl (7.5-11.1); MONO % 6.4 % (3.8-10.2); NEUT % 62.8 % (42.8-82.8); PLATELET COUNT 283 10^3/uL (134-434); RBC 3.78 M/mm3 (3.60-5.2); RDW 14.9 % (11.6-15.6)
[2023-08-01 10:22] LABS: POTASSIUM 3.4 mmol/L (3.5-5.1)
[2023-08-01 10:29] LABS: CALCIUM 9.1 mg/dL (8.5-10.1)
[2023-08-01 10:30] LABS: ALBUMIN 3.3 g/dl (3.4-5.0); BLOOD UREA NITROGEN 11.8 mg/dL (7-18)
[2023-08-01 10:33] LABS: CREATININE 0.7 mg/dL (0.55-1.3)
[2023-08-01 10:34] LABS: BILIRUBIN,TOTAL 0.7 mg/dL (0.2-1); TOT PROT 7.2 g/dl (6.4-8.2)
[2023-08-01] MEDS: ARIPiprazole 15 MG TABLET PO ONE (16:39)
[2023-08-02] MEDS: DEXTROSE 5%-0.45% SALINE 1,000 ML IV SCH (00:51)
[2023-08-02 08:58] LABS: BASO % 0.7 % (0-2.0); EOS % 1.9 % (0-4.5); HEMATOCRIT 31.2 % (32.4-45.2); HEMOGLOBIN 10.8 GM/dL (10.7-15.3); LYMPH % 41.8 % (8-40); MCH 31.5 pg (25.7-33.7); MCHC 34.5 g/dl (32.0-36.0); MEAN CELL VOLUME 91.2 fl (80-96); MEAN PLT VOLUME 7.3 fl (7.5-11.1); MONO % 9.4 % (3.8-10.2); NEUT % 46.2 % (42.8-82.8); PLATELET COUNT 249 10^3/uL (134-434); RBC 3.42 M/mm3 (3.60-5.2); RDW 14.9 % (11.6-15.6)
[2023-08-02 09:26] LABS: POTASSIUM 3.3 mmol/L (3.5-5.1)
[2023-08-02 09:29] LABS: CALCIUM 8.3 mg/dL (8.5-10.1)
[2023-08-02 09:30] LABS: ALBUMIN 2.7 g/dl (3.4-5.0)
[2023-08-02 09:33] LABS: CREATININE 0.6 mg/dL (0.55-1.3)
[2023-08-02 09:34] LABS: BILIRUBIN,TOTAL 0.6 mg/dL (0.2-1); TOT PROT 5.9 g/dl (6.4-8.2)
[2023-08-02] MEDS: POTASSIUM CHLORIDE ORAL LIQUID 20 MEQ/15 ML PO ONE (14:03)
[2023-08-02] MEDS: KCL 10 MEQ IVPB 10 MEQ/100 ML INFUS.BAG IVPB SCH (14:13)
[2023-08-03 08:30] LABS: BASO % 0.6 % (0-2.0); EOS % 2.2 % (0-4.5); HEMATOCRIT 28.9 % (32.4-45.2); LYMPH % 48.5 % (8-40); MCH 31.4 pg (25.7-33.7); MCHC 34.7 g/dl (32.0-36.0); MEAN CELL VOLUME 90.6 fl (80-96); MEAN PLT VOLUME 7.5 fl (7.5-11.1); MONO % 9.9 % (3.8-10.2); NEUT % 38.8 % (42.8-82.8); PLATELET COUNT 244 10^3/uL (134-434); RBC 3.19 M/mm3 (3.60-5.2); RDW 14.8 % (11.6-15.6); WHITE BLOOD COUNT 3.8 K/mm3 (4.0-10.0)
[2023-08-03 08:46] VITALS: RESP 20
[2023-08-03 08:51] LABS: POTASSIUM 3.6 mmol/L (3.5-5.1)
[2023-08-03 08:54] LABS: CALCIUM 8.3 mg/dL (8.5-10.1)
[2023-08-03 08:55] LABS: ALBUMIN 2.7 g/dl (3.4-5.0); BLOOD UREA NITROGEN 3.5 mg/dL (7-18)
[2023-08-03 08:58] LABS: CREATININE 0.6 mg/dL (0.55-1.3)
[2023-08-03 08:59] LABS: BILIRUBIN,TOTAL 0.4 mg/dL (0.2-1); TOT PROT 5.9 g/dl (6.4-8.2)
[2023-08-03 15:19] VITALS: BP 128/69; PULSE 71; TEMP 98.9
== END 2023-08-03 15:53 | disposition home or self-care (01) | DRG 389 ==
LOC: JER 19:19 → JERBED 23:19 → OBSVTOIN 23:58 → J6S 07-30 01:44
PROVIDERS: ADMIT Internal Medicine; ATTEND Internal Medicine
DX: K56.609 Unspecified intestinal obstruction, unspecified as to partial versus complete obstruction (principal); K50.90 Crohn's disease, unspecified, without complications; D64.9 Anemia, unspecified; N83.291 Other ovarian cyst, right side; D25.9 Leiomyoma of uterus, unspecified; E66.9 Obesity, unspecified; Z68.35 Body mass index [BMI] 35.0-35.9, adult; Z90.49 Acquired absence of other specified parts of digestive tract
CPT/HCPCS: 0241U-QW; 36415; 71045-TC-FY; 74018-TC-FY; 74019-TC-FY; 74021-TC-FY; 74177-TC; 76830-TC; 80053; 81003; 83605; 83690; 83735; 84100; 84484; 85025; 85610; 85730; 86850; 86900; 86901; 87086; 93005; 93010; 99285-25; G0378; J0131; Q9967